=== PATIENT | male | born 1950 | race Caucasian/White ===

== ENCOUNTER → 2017-01-19 19:19 | Outpatient (CLI) | payer MEDICARE, OTHER ==
[2016-05-04 03:01] VITALS: BMI 26.8
[~2017-01-19 19:19] MED LIST: BAYER CHEWABLE81 MG PO; BETAPACE 80 MG80 MG PO; CELEBREX200 MG PO; CYCLOBENZAPRINE10 MG PO; ELIQUIS5 MG PO; FISH OIL 1,0001 CA1 PO; FLOMAX0.4 MG PO; ISOSORBIDE MONO30 M1 PO; LEVAQUIN500 MG PO; PLAVIX75 MG PO; PREDNISONE10 MG; PREDNISONE20 MG; SEPTRA DS TABLE1 TAB; ULTRAM50 MG PO; VIBRAMYCIN 100100 MG PO; XARELTO20 MG PO
== END | disposition home or self-care (01) ==
LOC: D.SLEEP 19:19
DX: G47.33 Obstructive sleep apnea (adult) (pediatric) (principal)

== ENCOUNTER → 2017-01-27 19:11 | Outpatient (CLI) | payer MEDICARE, OTHER | END | disposition home or self-care (01) | LOC: D.SLEEP 19:11 | DX: G47.33 Obstructive sleep apnea (adult) (pediatric) (principal) ==

== ENCOUNTER 2017-01-28 22:19 | Emergency (ER) | payer MEDICARE, OTHER ==
[2016-05-04 03:01] VITALS: BMI 26.8
[2017-01-28 23:08] LABS: BASOPHILS 0.6 % (0.0-2.0); EOSINOPHILS 2.9 % (0-7); HEMATOCRIT 50.4 % (42.0-54.0); HEMOGLOBIN 17.4 g/dL (13.5-17.5); IMMATURE GRANULOCYTES 0.4 % (0-5); LYMPHOCYTES 24.9 % (15-50); MCH 30.7 pg (26.0-34.0); MCHC 34.5 g/dL (31.0-37.0); MCV 88.9 fL (80.0-100.0); MEAN PLATELET VOLUME 9.5 fL (7.4-10.4); NEUTROPHILS 62.2 % (40-80); RBC 5.67 10x6/uL (4.20-6.10); RDW 12.9 % (11.5-14.5); WBC 6.8 10x3/uL (4.8-10.8)
[2017-01-28 23:11] LABS: PLATELET COUNT 175 10x3/uL (130-400)
[2017-01-28 23:23] LABS: ALBUMIN 3.3 g/dL (3.4-5.0); ALKALINE PHOSPHATASE 100 U/L (46-116); ALT (SGPT) 24 U/L (10-68); CALC OSMOLALITY 273 mosm/kg (275-300); CARBON DIOXIDE 27.6 mmol/L (21.0-32.0); CHLORIDE - SERUM 100 mmol/L (98-107); CREATININE - SERUM 1.2 mg/dL (0.6-1.3); GLUCOSE 129 mg/dL (74-106); PROTEIN - SERUM 6.7 g/dL (6.4-8.2); SODIUM 135 mmol/L (136-145); UREA NITROGEN 18 mg/dL (7-18); eGFR NON AFRICAN AMERICAN 64 mL/min (90-120)
[2017-01-28 23:34] LABS: CKMB 0.8 U/L (0.0-3.6); CREATINE KINASE 70 UL (21-232); TROPONIN-I < 0.017 ng/mL (0.000-0.060)
== END 2017-01-29 01:01 | disposition home or self-care (01) ==
LOC: D.ER 22:19
PROVIDERS: Emergency Medicine
DX: I48.91 Unspecified atrial fibrillation (principal); N28.9 Disorder of kidney and ureter, unspecified; G45.9 Transient cerebral ischemic attack, unspecified

== ENCOUNTER 2017-02-04 07:19 | Outpatient (CLI) | payer MEDICARE, OTHER ==
[~2017-02-04] VITALS: Ht 180.3 cm; Wt 84.1 kg
--- NOTE | ~2017-02-04 | HEMODYNAMI ---
PATIENT:LUIGI BORJA MEDICAL RECORD: [id number] : 48 LOCATION:D.CAT ADMISSION DATE: 02/04/17 Generatedon:02/04/20179:16 Patient name: LUIGI BORJA Patient #: [id number] : 1950 Date of study: 02/04/2017 Page: Of Hemodynamic Procedure Report Patient Data Patient Demographics Procedure consent was obtained First Name: LUIGI Gender: Male Last Name: JONH : 1950 Middle Initial: M Age: 66 year(s) Patient #: [id number] Race: SSN: [id number] Additional ID: [id number] Contact details [address]: [address] [place] [address] State: [place] City: [place] Zip code: [address] Past Medical History Allergies Allergen Reaction Date Comments Reported Penicillins 02/17/2015 Other allergy 02/17/2015 Feldene Lipitor 02/17/2015 Other allergy 02/17/2015 Meropenem Other allergy 02/04/2017 PCN, Feldene, Statins,Meropenen Admission Admission Data Admission Date: 02/04/2017 Admission Time: 7:19 Arrival Date: 02/04/2017 Arrival Time: 9:30 Admit Source: Other Insurance Payor: Medicare Height (in.): 71 BSA: 2.04 (m2) Height (cm.): 180.34 BMI: 25.94 (kg/m2) Weight (lbs.): 186 Weight (kg.): 84.37 Lab Results Lab Result Date: 02/04/2017 Lab Result Time: 0:00 Biochemistry Name Units Result Min Max BUN mg/dl 15 --(--*-)-- 7 18 Creatinine mg/dl 1.2 --(---*)-- 0.6 1.3 CBC Name Units Result Min Max Hemoglobin g/dl 18 --(----)*- 13.5 17.5 Procedure Procedure Types Cath Procedure Diagnostic Procedure LHC LHC w/Coronaries w/Grafts PCI Procedure Coronary Stent Initial Miscellaneous Procedures Procedure Description Procedure Date Procedure Date: 02/04/2017 Procedure Start Time: 8:42 Procedure End Time: 9:09 Procedure Staff Name Function Javier Law MD Performing Physician Renita Springer RT Scrub Dave Munoz RN Nurse Karine Simons RT Monitor Indication Angina Procedure Data Cath Procedure Fluoroscopy Diagnostic fluoroscopy Total fluoroscopy Time: time: 11.8 min 11.8 min Diagnostic fluoroscopy Total fluoroscopy dose: dose: 1395 mGy 1395 mGy Contrast Material Contrast Material Type Amount (ml) Isovue 300 154 Entry Location Entry Primary Successful Side Size Upsize Upsize Entry Closure Succes sful Closure Location (Fr) 1 (Fr) 2 (Fr) Remarks Device Remarks Femoral Right 5 Fr 6 Fr 7 Fr Exoseal artery Short Short Estimated blood loss: 10 ml Diagnostic catheters Device Type Used For End Catheter Placement Cordis 5Fr Pigtail Ventriculography Catheter (MP) Cordis 5Fr JL 4.0 Procedure Catheter (MP) Cordis 5Fr 3DRC Catheter Procedure (MP) Diagnostic Infinity 5Fr Procedure AR 2 MOD catheter Procedure Complications No complications Procedure Medications Medication Administration Route Dosage Oxygen NC 2 l/min Heparin Flush Bag added to field 2 bags (1000units/500ml NS) Lidocaine 2% added to field 20 Plavix 75 mg 0.9% NaCl I.V. 100 ml/hr Versed I.V. 1 mg Fentanyl I.V. 50 mcg Heparin Bolus I.V. 4000 units Versed I.V. 1 mg Fentanyl I.V. 50 mcg Fentanyl I.V. 50 mcg Hemodynamics Rest BSA: 2.04 (m2) HGB: 18 (g/dl) O2 Consumption: Estimated: 229.88 (ml/min) O2 Cons umption indexed: Estimated:112.69 (ml/min/m) Heart Rate: 61 (bpm) Snapshots Pre Cath Intra NCS Post Cath Vital Signs Time Heart Resp SPO2 NIBP (mmHg) Rhythm Pain Sedation Rate (ipm) (%) Status Level (bpm) 8:24:27 68 17 98 171/102(149) NSR 0 (11) 10(A) , No pain 8:28:49 64 15 100 167/98(142) NSR 0 (11) 10(A) , No pain 8:33:09 63 16 100 155/97(144) NSR 0 (11) 10(A) , No pain 8:37:25 66 17 100 157/98(133) NSR 0 (11) 9(A) , No pain 8:42:55 64 16 100 163/87(121) NSR 0 (11) 9(A) , No pain 8:47:15 63 17 100 145/91(109) NSR 0 (11) 9(A) , No pain 8:51:27 70 16 100 143/94(110) NSR 0 (11) 9(A) , No pain 8:55:37 69 14 100 135/89(114) NSR 0 (11) 9(A) , No pain 8:59:45 75 15 100 152/91(111) NSR 0 (11) 9(A) , No pain 9:03:59 75 15 100 156/94(138) NSR 0 (11) 9(A) , No pain 9:08:15 79 16 100 151/97(137) NSR 0 (11) 10(A) , No pain Medications Time Medication Route Dose Verified Delivered Reason Notes Effectiveness by by 8:25:38 Oxygen NC 2 Javier Buffie Per physician l/min Thanh Munoz RN 8:25:45 Heparin Flush added 2 Javier Javier used for Bag to bags Thanh Law MD procedure (1000units/500ml field NS) 8:25:52 Lidocaine 2% added 20ml Javier Javier used for to vial Thanh Law MD procedure field 8:33:29 Plavix 75 mg Javier Buffie for Thanh Munoz RN antiplatelet therapy 8:37:54 0.9% NaCl I.V. 100 Javier Buffie Per physician ml/hr Thanh Munoz RN 8:38:39 Versed I.V. 1 mg Javier Buffie for sedation Thanh Munoz RN 8:38:46 Fentanyl I.V. 50 Javier Buffie for sedation mcg Thanh Munoz RN 8:51:08 Heparin Bolus I.V. 4000 Javier Buffie for verifie d units Thanh Munoz RN anticoagulation with dr law 8:54:18 Versed I.V. 1 mg Javier Buffie for sedation Thanh Munoz RN 8:54:22 Fentanyl I.V. 50 Javier Buffie for sedation mcg Tauth MD Munoz RN 9:02:47 Fentanyl I.V. 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 Start room use. 8:01:01 Arrival Date: 02/04/2017 9:30:00 AM 8:01:06 Admit Source: Other 8:01:08 Insurance Payor : Medicare 8:01:29 Patient Height : 180.34 cm 8:01:33 Patient Weight : 84.37 kg 8:04:30 Diagnostic Cath Status : Elective 8:04:52 Indication : Angina 8:17:36 Lab Result : BUN 15 mg/dl 8:17:36 Lab Result : Hemoglobin 18 g/dl 8:17:36 Lab Result : Creatinine 1.2 mg/dl 8:17:48 Time tracking: Regular hours 8:17:52 Plan of Care:Hemodynamics will remain stable., Cardiac rhythm will remain stable., Comfort level will be maintained., Respiratory function will remain adequate., Patient/ family verbilizes understanding of procedure., Procedure tolerated without complication., Recovers from procedure without complications.. 8:18:21 Patient received from Pre/Post Procedure Room to CCL 2 Alert and oriented. Tansferred to table in Supine position. 8:18:23 Warm blankets applied, and kailee hugger turned on for patient comfort. 8:18:23 Correct patient and procedure confirmed by team. 8:18:24 ECG and BP/O2 sat monitors applied to patient. 8:21:01 H&P Date Dictated: 02/01/2017 Within 30 days and on chart., H&P Addendum completed by physician on day of procedure. (MUST COMPLETE FOR ALL OUTPATIENTS). 8:21:02 Pre-procedure instructions explained to patient. 8:21:02 Pre-op teaching completed and patient verbalized understanding. 8:21:04 Family in patients room. 8:21:06 Patient NPO since Midnight. 8:21:28 Patient allergic to Other allergyPCN, Feldene, Statins,Meropenen 8:21:30 Is the patient allergic to Iodine/contrast media? No. 8:21:32 Is patient on blood thinner?Yes 8:21:34 ACC The patient was administered the following blood thiners within the last 24 hours: ACCPlavix 8:21:36 Patient diabetic? No. 8:21:38 Previous problem with sedation/anesthesia? No ? 8:21:41 Snore? Yes 8:21:42 Sleep apnea? Yes 8:21:43 Deviated septum? No 8:21:44 Opens mouth fully? Yes 8:21:45 Sticks out tongue? Yes 8:21:47 Airway obstruction? No ? 8:21:48 Dentures? No ? 8:21:51 Patient pain scale 0/10 ?. 8:22:08 IV patent on arrival in left hand with 0.9% NaCl at [facility]. 8:22:11 Lab results completed and on chart. 8:22:14 Right groin area was prepped with chlora-prep and draped in sterile fashion 8:22:19 Alarms reviewed by R. N. 8:22:19 Sharps counted by scrub and verified by R.N. 8:22:22 Use device set Femoral Dx 8:22:23 Tegaderm 4 x 4 opened to sterile field. 8:22:28 Acist Manifold opened to sterile field. 8:22:28 Acist Hand Control opened to sterile field. 8:22:29 Acist Syringe opened to sterile field. 8:22:30 Bag Decanter opened to sterile field. 8:22:30 Medline Cath Pack opened to sterile field. 8:22:31 Terumo 5Fr [place] Sheath opened to sterile field. 8:22:31 St Thierry 260cm J .035 wire opened to sterile field. 8:22:33 Diagnostic Infinity 5Fr Multipack catheter opened to sterile field. 8:23:14 Vital chart was started 8:23:31 Baseline sample Acquired. 8:23:35 Rhythm: sinus rhythm 8:23:37 Full Disclosure recording started 8:23:47 Baseline sample Acquired. 8:25:38 Oxygen 2 l/min NC was administered by Dave Munoz RN; Per physician; 8:25:45 Heparin Flush Bag (1000units/500ml NS) 2 bags added to field was administered by Javier Law MD; used for procedure; 8:25:52 Lidocaine 2% 20ml vial added to field was administered by Javier Law MD; used for procedure; 8:26:46 Baseline sample Acquired. 8::52 Baseline sample Acquired. 8:33:29 Plavix 75 mg was administered by Dave Munoz RN; for antiplatelet therapy; 8:36:34 Physician arrived 8:37:42 --------ALL STOP TIME OUT------ 8:37:43 Final Timeout: patient, procedure, and site verified with staff and physician. All members of the team are in agreement. 8:37:49 Right groin site verified by team. 8:37:54 0.9% NaCl 100 ml/hr I.V. was administered by Dave Munoz RN; Per physician; 8:37:54 Physical assessment completed. ASA score P 2 - A patient with mild systemic disease as per Javier Law MD. 8:37:58 Sedation plan: IV Moderate Sedation Versed, Fentanyl 8:38:39 Versed 1 mg I.V. was administered by Dave Munoz RN; for sedation; 8::46 Fentanyl 50 mcg I.V. was administered by Dave Munoz RN; for sedation; 8:39:56 Zero performed for pressure channel P1 8:42:32 Local anesthetic to right femoral artery with Lidocaine 2% by Javier Law MD.INITIAL ACCESS ONLY 8:42:40 A 5 Fr sheath was inserted into the Right Femoral artery 8:46:14 A Cordis 5Fr Pigtail Catheter (MP) was advanced over the wire and used for Ventriculography. 8:46:23 EF : 50 % 8:46:26 Catheter removed. 8:46:34 A Cordis 5Fr JL 4.0 Catheter (MP) was advanced over the wire and used for Procedure. 8:46:38 LCA angiography performed. 8:47:23 Catheter removed. 8:48:03 A Cordis 5Fr 3DRC Catheter (MP) was advanced over the wire and used for Procedure. 8:48:26 EDWARDS to LAD angiography performed. 8:48:48 RCA angiography performed. 8:49:06 Catheter removed. 8:49:25 A Diagnostic Infinity 5Fr AR 2 MOD catheter was advanced over the wire and used for Procedure. 8:50:33 SVG to Ramus angiography performed. 8:51:08 Heparin Bolus 4000 units I.V. was administered by Dave Munoz RN; for anticoagulation; verified with dr law 8:51:18 SVG to RCA occluded. 8:51:42 SVG to Circ angiography performed. 8:52:11 Catheter removed. 8:52:24 PCI Cath status Elective 8:52:35 Sheath upsized to a 6 Fr Short. 8:53:45 Merit BasixCompak Inflation Kit opened to sterile field. 8:53:45 Terumo 6Fr [place] Sheath opened to sterile field. 8:53:46 Matias Whisper J 300cm 0.014 guide wire opened to sterile field. 8:54:18 Versed 1 mg I.V. was administered by Dave Munoz RN; for sedation; 8:54:22 Fentanyl 50 mcg I.V. was administered by Dave Munoz RN; for sedation; 8:54:32 Medtronic Launcher 6Fr AR 2.0 guide catheter opened to sterile field. 8:54:42 ACC PCI Site: Ramus has 90% stenosis. 8:54:50 6 Fr AR 2 guide catheter was inserted over the wire 8:54:57 Whisper wire advanced. 8:57:15 [place] Sci Choice PT Extra Support J 300cm .014 gu opened to sterile field. 8:58:05 Wire advanced across lesion. 9:01:29 Wire removed. unable to cross lesion. 9:01:34 Guide Catheter removed. unable to get back-up support 9:01:49 Terumo 7Fr [place] Sheath opened to sterile field. 9:02:02 Sheath upsized to a 7 Fr Short. 9:02:22 [place] Sci 7FR Runway ART 4.0 guide catheter opened to sterile field. 9:02:37 7 Fr ART 4 guide catheter was inserted over the wire 9:02:47 Fentanyl 50 mcg I.V. was administered by Dave Munoz RN; for sedation; 9:02:59 PT graphics ex wire advanced. 9:05:33 Inflation number: 1 A Euphora 1.5 x 20 Balloon was prepped and advanced across the Ramus, then inflated to 21 ALLYSON for 0:10 (min:sec). 9:05:49 Balloon removed over the wire. 9:07:11 Inflation Number: 2 A Medtronic Resolute 2.25 X 12 stent was prepped and advanced across the Ramus. The stent was deployed at 17 ALLYSON for 0:12 (min:sec). 9:07:37 Cordis 7Fr Exoseal opened to sterile field. 9:07:45 Wire removed. 9:07:46 Guide catheter removed. 9:07:59 Sheath removed intact; hemostasis achieved with Exoseal to the Right Femoral artery. 9:08:02 Procedure ended.(Physican Out) 9:08:30 Fluoroscopy time 11.80 minutes. 9:08:34 Flurop Dose total: 1395 9:08:34 Fluoroscopy dose: 1395 mGy 9:08:39 Contrast amount:Isovue 300 154ml. 9:08:40 Sharps counted by scrub and verified by R.N. 9:08:43 Insertion/operative site no bleeding no hematoma. 9:08:47 Post-op/insertion site Right Femoral artery dressed using a 4 x 4 and Tegaderm. 9:08:53 Post Procedure Pulses reassessed and unchanged 9:08:57 Post-procedure physical assessment completed. ASA score P 2 - A patient with mild systemic disease as per Javier Law MD. 9:09:04 Post procedure rhythm: unchanged. 9:09:07 Estimated blood loss: 10 ml 9:09:09 Post procedure instruction explained to patient.Patient verbalizes understanding. 9:09:36 Procedure and supply charges have been captured, reviewed, submitted and are correct. 9:09:41 Procedure Complication : No complications 9:09:44 Vital chart was stopped 9:09:46 See physician's report for complete and final results. 9:09:53 Report given to Pre/Post Procedure Room. 9:09:56 Patient transfered to Pre/Post Procedure Room with Stretcher. 9:09:58 Procedure ended. 9:09:58 Full Disclosure recording stopped 9:10:04 End room use (Document Last) Intervention Summary Intervention Notes Time ActionType Lesion and Equipment Action# Pressure Duration Attributes Used 9:05:33 Inflate Ramus Euphora 1 21 00:10 balloon 1.5 x 20 Balloon 9:07:11 Place stent Ramus Medtronic 2 17 00:12 Resolute 2.25 X 12 stent Device Usage Item Name Manufacture Quantity Catalog Number Hospital Part Current Minim al Lot# / Charge Number Stock Stock Serial# Code Tegaderm 4 3M 1 [id number] [id number] [id number] [id number] 5 x 4 Acist Acist 1 [id number] [id number] [id number] 364163 5 [employer] Acist Hand Acist 1 04389 400675 057726 963367 5 ContractRoom [employer] Inc Acist Acist 1 22360 944950 984099 011147 20 Syringe Medical Systems Inc Bag Microtek 1 2002S 452055 48426 846933 5 Hexadite Inc. Medline Cardinal 1 [id number] 727037 20485 858917 5 Cath Pack Health Terumo 5Fr Terumo 1 [id number] 205701 920156 784844 [address] St Thierry 1 395047 871273 290978 288099 30 260cm J .035 wire Diagnostic Cardinal 1 [id number] 208464 85045 310313 30 Infinity Health 5Fr Multipack catheter Cordis 5Fr Cardinal 1 [id number] 5 Pigtail Health Catheter (MP) Cordis 5Fr Cardinal 1 888326 5 JL 4.0 Health Catheter (MP) Cordis 5Fr Cardinal 1 128785 5 3DRC Health Catheter (MP) Diagnostic Cardinal 1 [id number] 133824 804392 221907 20 Infinity Health 5Fr AR 2 MOD catheter Merit Merit 1 [id number] 026584 555453 967773 15 Fortumo Medical Inflation Kit Terumo 6Fr Terumo 1 SVC529 230683 957070 778003 40 [place]us Sheath Matias Matias 1 [id number] 973213 524074 522986 5 Whisper J Vascular 300cm 0.014 guide wire Medtronic Medtronic 1 [id number] 571954 56783 637882 1 Launcher 6Fr AR 2.0 guide catheter [place] Sci [place] 1 [id number] 717720 857077 230524 5 Choice PT Scientific Extra Support J 300cm .014 gu Terumo 7Fr Terumo 1 [id number] 902809 834774 081118 5 [place]us Sheath [place] Sci [place] 1 [id number] 147384 14107 570300 0 7FR Runway Scientific ART 4.0 guide catheter Euphora 1.5 Medtronic 1 [id number] 596595 519236 976769 5 [id number] x 20 Balloon Medtronic Medtronic 1 [id number] 464977 405383 8 [id number] Resolute 2.25 X 12 stent Cordis 7Fr Cardinal 1 [id number] 403208 665770 606296 5 Exoseal Health Signature Audit [place] Stage Time Signature Unsigned Intra-Procedure 02/04/2017 Karine Simons 9:16:01 AM RT(R) Signatures Monitor : Karine Simons Signature : RT Date : Time : [place] [id number] [place] [address]
--- NOTE | ~2017-02-04 | OP ---
PATIENT NAME: LUIGI BORJA MEDICAL RECORD: [id number] :48 LOCATION:D.CAT ADMISSION DATE: SURGEON: LEIGHTON WILLIS MD DATE OF OPERATION: 02/04/2017 PROCEDURES: 1. PTCA stent of the left circumflex, ramus intermedius through the patent vein graft. 2. Left heart catheterization. 3. Selective coronary angiography. 4. Left ventriculogram. 5. Vein graft angiography. 6. EDWARDS angiography. INDICATION: Angina and coronary artery disease. DESCRIPTION OF THE PROCEDURE: After informed consent was obtained and after detailed explanation of risks, benefits as well as alternative therapies, the patient elected to proceed with angiogram and angioplasty. The right femoral area was prepped and draped in normal sterile fashion. Right femoral artery was cannulated via modified Seldinger technique with placement of 6-Salvadorean sheath. All catheters exchanged through this sheath. FINDINGS: Left ventriculogram was performed in the standard 30-degree ZIMMERMAN view reveals good cardiac wall motion throughout all segments. Overall ejection fraction is 60%. SELECTIVE CORONARY ANGIOGRAPHY: 1. Left main is with no significant angiographic disease. 2. Left anterior descending is totally occluded. 3. Left circumflex is totally occluded. 4. The right coronary artery is totally occluded. 5. EDWARDS to the LAD is widely patent. 6. Vein graft to the left circumflex is widely patent. 8. Vein graft to the circumflex ramus intermedius is patent; however, the ramus intermedius has 90% stenosis after the vein graft. 9. Vein graft to the right coronary artery is closed throughout. PERCUTANEOUS TRANSLUMINAL CORONARY ANGIOPLASTY STENT OF THE RAMUS INTERMEDIUS THROUGH THE PATENT VEIN GRAFT: The stent used was a 2.25 x 12 mm Resolute. Result was 0% residual stenosis. OVERALL IMPRESSION: Successful percutaneous transluminal coronary angioplasty stent of the ramus intermedius through the patent vein graft going from 90% initial stenosis to 0% residual. TRANSINT:[id number] Voice Confirmation ID: [id number] DOCUMENT ID: [id number] OPERATIVE REPORT [id number] LUIGI BORJA LEIGHTON WILLIS MD CC: [id number] DICTATION DATE: 02/04/17911 HOSPITAL DIRECTOR: 02/04/17 1259 [facility] [address] [place] [address]
[2017-02-04 07:31] VITALS: BP 166/87; Ht 180.3 cm; Wt 84.1 kg
[2017-02-04 07:40] LABS: BASOPHILS 0.5 % (0.0-2.0); EOSINOPHILS 3.2 % (0-7); HEMATOCRIT 51.2 % (42.0-54.0); IMMATURE GRANULOCYTES 0.6 % (0-5); LYMPHOCYTES 26.8 % (15-50); MCH 31.3 pg (26.0-34.0); MCHC 35.2 g/dL (31.0-37.0); MEAN PLATELET VOLUME 9.5 fL (7.4-10.4); MONOCYTES 8.1 % (2-11); NEUTROPHILS 60.8 % (40-80); PLATELET COUNT 179 10x3/uL (130-400); RBC 5.75 10x6/uL (4.20-6.10); RDW 12.9 % (11.5-14.5); WBC 6.3 10x3/uL (4.8-10.8)
[2017-02-04 07:53] LABS: ANION GAP 11.5 mmol/L (8-16); CALCIUM 9.2 mg/dL (8.5-10.1); CARBON DIOXIDE 28.3 mmol/L (21.0-32.0); CREATININE - SERUM 1.2 mg/dL (0.6-1.3); POTASSIUM - SERUM 3.8 mmol/L (3.5-5.1)
--- NOTE | 2017-02-04 09:33 | NUR ---
0925 RECEIVED PT FROM MANAGER SUBWAY, PT IS DROWSY, AWAKENS EASILY. RR EVEN AND UNLABORED, ON O2 AT 2 LPM VIA NC. SAT IS 97%. 7 FR EXOSEAL IS CDI TO RIGHT GROIN, AREA IS SOFT WITH NO HEMATOMA OR BLEEDING NOTED. PEDAL PULSES PALPABLE. SINUS RHYTHM WITH RATE 62 AT BEDSIDE. CALL LIGHT IN REACH.
--- NOTE | 2017-02-04 09:51 | NUR ---
0940 PT DENIES ANY C/O RIGHT GROIN DRESSING IS CDI, NO BLEEDING OR HEMATOMA NOTED. PEDAL PULSES PALPABLE. AT BEDSIDE. RR EVEN AND UNLABORED. VSS.
[2017-02-04] MEDS ORDERED: BAYER CHEWABLE81 MG PO (10:08)
--- NOTE | 2017-02-04 13:04 | NUR ---
ELEVATED HOB TO 30DEGREES, ALL VITALS WNL. FAMILY AT BEDSIDE. EATING TURKEY SANDIWCH. R GROIN REMAINS C/D/I WITH NOHEMATOMA OR BLEEDING.
--- NOTE | 2017-02-04 13:36 | NUR ---
PIV REMOVED FROM LEFT WRIST WITH BANDAID APPLIED. UP TO BEDSIDE TO DRESS. AMBULATED TO BATHROOM. R GROIN REMAINS C/D/I WITH NO HEMATOMA OR BLEEDING.
--- NOTE | 2017-02-04 13:37 | NUR ---
D/C ISNTRUCTIONS DISCUSSED WITH PATIENT AND AT BEDSIDE. WHEELED OUT VIA WHEELCHAIR.
== END 2017-02-04 13:48 | disposition home or self-care (01) ==
LOC: D.CATH 07:19
PROVIDERS: Internal Medicine Interventional Cardiology
DX: I25.119 Atherosclerotic heart disease of native coronary artery with unspecified angina pectoris (principal); I25.719 Atherosclerosis of autologous vein coronary artery bypass graft(s) with unspecified angina pectoris
CPT/HCPCS: 93459; C9604

== ENCOUNTER → 2017-09-08 16:01 | Outpatient (CLI) | payer MEDICARE, OTHER ==
[2017-02-04 07:31] VITALS: BMI 25.8
== END | disposition home or self-care (01) ==
LOC: D.MAMMO 08:30
DX: N60.02 Solitary cyst of left breast (principal)

== ENCOUNTER 2018-01-30 14:18 | Outpatient (CLI) | payer MEDICARE, OTHER ==
[~2018-01-30] VITALS: Ht 180.3 cm; Wt 78.4 kg
--- NOTE | ~2018-01-30 | HEMODYNAMI ---
PATIENT:LUIGI BORJA MEDICAL RECORD: [id number] : 48 LOCATION:[facility] D.2116 ADMISSION DATE: 01/30/18 Generatedon:02/01/20189:35 Patient name: LUIGI BORJA Patient #: [id number] : 1950 Date of study: 02/01/2018 Page: Of Hemodynamic Procedure Report Patient Data Patient Demographics Procedure consent was obtained First Name: LUIGI Gender: Male Last Name: JONH : 1950 Middle Initial: M Age: 67 year(s) Patient #: [id number] Race: SSN: [id number] Additional ID: [id number] Contact details [address]: [address] [place] [address] State: [place] City: [place] Zip code: [address] Past Medical History Allergies Allergen Reaction Date Comments Reported Penicillins 02/17/2015 Other allergy 02/17/2015 Feldene Lipitor 02/17/2015 Other allergy 02/17/2015 Meropenem Other allergy 02/04/2017 PCN, Feldene, Statins,Meropenen Other allergy 01/31/2018 Feldene, PCN, Lipitor, Hydrocodone, Vicodin, Meropenen, Effient, Crestor. Admission Admission Data Admission Date: 01/30/2018 Admission Time: 14:18 Room #: D.2116 Lab Results Lab Result Date: 01/31/2018 Lab Result Time: 0:00 Biochemistry Name Units Result Min Max BUN mg/dl 18 --(---*)-- 7 18 Creatinine mg/dl 1.4 --(----)*- 0.6 1.3 CBC Name Units Result Min Max Hematocrit % 52.6 --(---*)-- 42 54 Hemoglobin g/dl 18.2 --(----)*- 13.5 17.5 Procedure Procedure Types Cath Procedure PCI Procedure Coronary Stent Coronary Stent Initial Procedure Description Procedure Date Procedure Date: 02/01/2018 Procedure Start Time: 9:26 Procedure End Time: 9:35 Procedure Staff Name Function Javier Law MD Performing Physician Blaise Soria RN Nurse Reta Avendano RT Scrub Riyahuber Merchant RT Monitor Procedure Data Cath Procedure Fluoroscopy Diagnostic fluoroscopy Total fluoroscopy Time: 1.1 time: 1.1 min min Diagnostic fluoroscopy Total fluoroscopy dose: 138 dose: 138 mGy mGy Contrast Material Contrast Material Type Amount (ml) Isovue 300 23 Entry Location Entry Primary Successful Side Size Upsize Upsize Entry Closure Succes sful Closure Location (Fr) 1 (Fr) 2 (Fr) Remarks Device Remarks Femoral Left 6 Fr Exoseal artery Short Estimated blood loss: 5 ml Procedure Complications No complications Procedure Medications Medication Administration Route Dosage Oxygen etCO2 Nasal cannula 2 l/min Heparin Flush Bag added to field 2 bags (1000units/500ml NS) 0.9% NaCl I.V. 100 ml/hr Fentanyl I.V. 50 mcg Versed I.V. 1 mg Fentanyl I.V. 50 mcg Versed I.V. 1 mg Heparin Bolus I.V. 4000 units Hemodynamics Rest HGB: 18.2 (g/dl) Heart Rate: 62 (bpm) Snapshots Pre Cath Intra NCS Post Cath Vital Signs Time Heart Resp SPO2 etCO2 NIBP (mmHg) Rhythm Pain Sedation Rate (ipm) (%) (mmHg) Status Level (bpm) 9:12:18 57 17 98 0 154/88(133) NSR 0 (11) 10(A) , No pain 9:17:02 60 17 99 0 158/89(138) NSR 0 (11) 10(A) , No pain 9:21:47 56 17 96 36.9 158/83(130) NSR 0 (11) 9(A) , No pain 9:26:32 57 17 84 13.5 133/92(108) NSR 0 (11) 9(A) , No pain 9:31:13 60 16 97 0 141/77(123) NSR 0 (11) 9(A) , No pain Medications Time Medication Route Dose Verified Delivered Reason Notes Effectiveness by by 9:12:55 Oxygen etCO2 2 Javier Welsh Per physician Nasal l/min Thahn Soria RN cannula 9:13:07 Heparin Flush added 2 Javier Welsh used for Bag to bags Tauth MD Soria air quality manager (1000units/500ml field NS) 9:13:26 0.9% NaCl I.V. 100 Javier Welsh Per physician ml/hr Thanh Soria RN 9:20:30 Fentanyl I.V. 50 Javier Welsh for sedation mcg Thanh Soria RN 9:20:36 Versed I.V. 1 mg Javier Welsh for sedation Thanh Soria RN 9:28:01 Fentanyl I.V. 50 Javier Welsh for sedation mcg Thanh Soria RN 9:28:05 Versed I.V. 1 mg Javier Welsh for sedation Thanh Soria RN 9:28:13 Heparin Bolus I.V. 4000 Javier Welsh for units Thanh Soria RN anticoagulation Procedure Log Time Note 8:50:33 Reta Counts RT(R) sent for patient. Start room use. 8:53:35 Time tracking: Regular hours 8:53:40 Plan of Care:Hemodynamics will remain stable., Cardiac rhythm will remain stable., Comfort level will be maintained., Respiratory function will remain adequate., Patient/ family verbilizes understanding of procedure., Procedure tolerated without complication., Recovers from procedure without complications.. 9:06:52 Patient received from PCU to CCL 1 Alert and oriented. Tansferred to table in Supine position. 9:06:54 Warm blankets applied, and kailee hugger turned on for patient comfort. 9:06:54 Correct patient and procedure confirmed by team. 9:06:55 Signed procedure consent form obtained from patient. 9:06:56 ECG and BP/O2 sat monitors applied to patient. 9:06:57 Full Disclosure recording started 9:11:21 Vital chart was started 9:12:55 Oxygen 2 l/min etCO2 Nasal cannula was administered by Blaise Soria RN; Per physician; 9:13:07 Heparin Flush Bag (1000units/500ml NS) 2 bags added to field was administered by Blaise Soria RN; used for procedure; 9:13:11 Rhythm: sinus rhythm 9:13:14 Baseline sample Acquired. 9:13:21 H&P Date Dictated: 01/30/2018 Within 30 days and on chart., H&P Addendum completed by physician on day of procedure. (MUST COMPLETE FOR ALL OUTPATIENTS). 9:13:22 Pre-procedure instructions explained to patient. 9:13:22 Pre-op teaching completed and patient verbalized understanding. 9:13:25 Family in patients room. 9:13:26 0.9% NaCl 100 ml/hr I.V. was administered by Blaise Soria RN; Per physician; 9:13:26 Patient NPO since Midnight. 9:13:28 Is the patient allergic to Iodine/contrast media? No. 9:13:30 Is patient on blood thinner?Yes 9:13:32 ACC The patient was administered the following blood thiners within the last 24 hours: ACCPlavix 9:14:15 Patient diabetic? No. 9:14:17 Previous problem with sedation/anesthesia? No ? 9:14:19 Snore? Yes 9:14:20 Sleep apnea? No 9:14:21 Deviated septum? No 9:14:21 Opens mouth fully? Yes 9:14:22 Sticks out tongue? Yes 9:14:23 Airway obstruction? No ? 9:14:25 Dentures? No ? 9:16:03 Pre procedure: left dorsailis pedis pulse 2+ Normal; easily identifiable; not easily obliterated 9:16:06 Patient pain scale 0/10 ?. 9:16:11 IV patent on arrival in left hand with 0.9% NaCl at [facility]. 9:16:13 Lab results completed and on chart. 9:16:17 Left groin area was prepped with chlora-prep and draped in sterile fashion 9:16:18 Alarms reviewed by R. N. 9:16:18 Sharps counted by scrub and verified by R.N. 9:16:25 Use device set CATH PACK 9:16:29 Use device set TAUTH PCI 9:16:41 PERCUTANEOUS ENTRY 19GA needle opened to sterile field. 9:16:43 ACIST Syringe (13418) opened to sterile field. 9:16:44 ACIST Hand Control (54903) opened to sterile field. 9:16:44 ACIST Manifold (01386) opened to sterile field. 9:16:45 Medline Cath Pack ([id number]) opened to sterile field. 9:16:45 Bag Decanter () opened to sterile field. 9:16:46 DIAGNOSTIC WIRE .035 260cm J wire (209603) opened to sterile field. 9:16:46 INFLATOR Merit Yasminek (TR9526) opened to sterile field. 9:16:51 CHOICE PT Extra Support 182cm wire ([id number]) opened to sterile field. 9:20:11 Final Timeout: patient, procedure, and site verified with staff and physician. All members of the team are in agreement. 9:20:13 Left groin site verified by team. 9:20:16 Physical assessment completed. ASA score P 2 - A patient with mild systemic disease as per Javier Law MD. 9:20:19 Sedation plan: IV Moderate Sedation Medication:Versed, Fentanyl 9:20:23 Zero performed for pressure channel P1 9:20:30 Fentanyl 50 mcg I.V. was administered by Blaise Soria RN; for sedation; 9::33 Zero performed for pressure channel P1 9:20:36 Versed 1 mg I.V. was administered by Blaise Soria RN; for sedation; 9:20:38 Zero performed for pressure channel P1 9:26:35 Procedure started. 9:26:46 Local anesthetic to left femerol artery with Lidocaine 2% by Javier Law MD.INITIAL ACCESS ONLY 9:27:24 A 6 Fr Short sheath was inserted into the Left Femoral artery 9:27:43 6 Fr XBLAD 3.5 guide catheter was inserted over the wire 9:28:01 Fentanyl 50 mcg I.V. was administered by Blaise Soria RN; for sedation; 9:28:05 Versed 1 mg I.V. was administered by Blaise Soria RN; for sedation; 9:28:13 Heparin Bolus 4000 units I.V. was administered by Blaise Soria RN; for anticoagulation; 9:28:19 CHOICE PT ES wire advanced. 9:29:52 Place stent Inflation Number: 1 A JORI RX 2.5 x 34 stent ([id number]) was prepped and advanced across the 1st Diag. The stent was deployed at 21 [address] for 0:11 (min:sec). 9:30:08 Stent catheter was removed intact over wire. 9:30:08 Wire removed. 9:30:09 Guide catheter removed. 9:30:15 Sheath removed intact; hemostasis achieved with Exoseal to the Left Femoral artery. 9:30:17 Procedure ended.(Physican Out) 9:32:45 Fluoroscopy time 01.10 minutes. 9:32:48 Flurop Dose total: 138 9:32:48 Fluoroscopy dose: 138 mGy 9:32:55 Contrast amount:Isovue 300 23ml. 9:32:56 Sharps counted by scrub and verified by R.N. 9:32:57 Insertion/operative site no bleeding no hematoma. 9:33:01 Post-op/insertion site Left Femoral artery dressed using a 4 x 4 and Tegaderm. 9:33:05 Post left femerol artery:stable, clean and dry 9:33:08 Post Procedure Pulses reassessed and unchanged 9:33:15 Post-procedure physical assessment completed. ASA score P 2 - A patient with mild systemic disease as per Javier Law MD. 9:33:16 Post procedure rhythm: unchanged. 9:33:18 Estimated blood loss: 5 ml 9:33:19 Post procedure instruction explained to patient.Patient verbalizes understanding. 9:33:22 Patient needs reinforcement of post procedure teaching. 9:33:42 Procedure Complication : No complications 9:33:46 See physician's report for complete and final results. 9:33:58 EXOSEAL 6Fr (EX600) opened to sterile field. 9:34:05 Tegaderm 4 x 4 (1626W) opened to sterile field. 9:34:21 GUIDE 6FR XBLAD 3.5 catheter ([id number]) opened to sterile field. 9:34:38 Procedure and supply charges have been captured, reviewed, submitted and are correct. 9:34:39 Vital chart was stopped 9:34:41 Report given to Pre/Post Procedure Room. 9:35:19 Patient transfered to Pre/Post Procedure Room with Stretcher. 9:35:24 Procedure ended. 9:35:24 Full Disclosure recording stopped 9:35:27 End room use (Document Last) Intervention Summary Intervention Notes Time ActionType Lesion and Equipment Used Action# Pressure Duration Attributes 9:29:52 Place stent 1st Diag JORI RX 2.5 x 1 21 00:11 34 stent ([id number]) Device Usage Item Name Manufacture Quantity Catalog Number Hospital Part Current M inimal Lot# / Charge Number Stock Stock Serial# Code [facility] 1 [id number] [id number] 5 ENTRY 19GA needle ACIST Syringe Acist 1 86846 107658 357059 501845 2 0 (82606) [employer] ACIST Hand Acist 1 12908 545176 496915 907991 5 Control Medical (19076) Systems Inc ACIST Manifold Acist 1 10932 285918 645417 268922 5 (89586) [employer] Medline Cath Cardinal 1 [id number] 827940 79311 265684 5 Pack Health ([id number]) Bag Decanter Microtek 1 2002S 130594 47569 854901 5 (2001S) Medical Inc. DIAGNOSTIC [facility] 1 807841 854733 153037 172776 3 0 WIRE .035 260cm J wire (647844) INFLATOR Merit Merit 1 RV8675 344378 421192 019562 1 5 Compiere (MS6323) CHOICE PT [place] 1 [id number] 266260 037045 694750 5 Extra Support Scientific 182cm wire ([id number]) JORI RX 2.5 x Medtronic 1 [id number] 356074 1310076 632274 5 [id number] 34 stent ([id number]) EXOSEAL 6Fr Cardinal 1 EX600 790948 449200 603150 1 0 (EX600) Health Tegaderm 4 x 4 3M 1 1626W 541709 068745 576309 5 (1626W) GUIDE 6FR Cardinal 1 [id number] 706961 216572 967040 1 0 XBLAD 3.5 Health catheter ([id number]) Signature Audit [place] Stage Time Signature Unsigned Intra-Procedure 02/01/2018 Reta 9:35:41 AM Counts RT(R) Signatures Monitor : Riya Merchant Signature : RT Date : Time : [facility] [address] [place] [address]
--- NOTE | ~2018-01-30 | HEMODYNAMI ---
PATIENT:LUIGI BORJA MEDICAL RECORD: [id number] : 48 LOCATION:[facility] D.2116 ADMISSION DATE: 01/30/18 Generatedon:01/31/201810:14 Patient name: LUIGI BORJA Patient #: [id number] : 1950 Date of study: 01/31/2018 Page: Of Hemodynamic Procedure Report Patient Data Patient Demographics Procedure consent was obtained First Name: LUIGI Gender: Male Last Name: JONH : 1950 Middle Initial: M Age: 67 year(s) Patient #: [id number] Race: SSN: [id number] Additional ID: [id number] Contact details [address]: [address] [place] [address] State: [place] City: [place] Zip code: [address] Past Medical History Allergies Allergen Reaction Date Comments Reported Penicillins 02/17/2015 Other allergy 02/17/2015 Feldene Lipitor 02/17/2015 Other allergy 02/17/2015 Meropenem Other allergy 02/04/2017 PCN, Feldene, Statins,Meropenen Other allergy 01/31/2018 Feldene, PCN, Lipitor, Hydrocodone, Vicodin, Meropenen, Effient, Crestor. Admission Admission Data Admission Date: 01/30/2018 Admission Time: 14:18 Room #: D.2116 Lab Results Lab Result Date: 01/31/2018 Lab Result Time: 0:00 Biochemistry Name Units Result Min Max BUN mg/dl 18 --(---*)-- 7 18 Creatinine mg/dl 1.4 --(----)*- 0.6 1.3 CBC Name Units Result Min Max Hematocrit % 52.6 --(---*)-- 42 54 Hemoglobin g/dl 18.2 --(----)*- 13.5 17.5 Procedure Procedure Types Cath Procedure Diagnostic Procedure LHC LHC w/Coronaries w/Grafts Sedation Charges Moderate Sedation up to 15 minutes PCI Procedure AMI/SVG/FUNERAL ATTENDANT PTCA or Stent SVG-BMS/VANDANA Initial Procedure Description Procedure Date Procedure Date: 01/31/2018 Procedure Start Time: 9:53 Procedure End Time: 10:12 Procedure Staff Name Function Javier Law MD Performing Physician Renita Springer RT Monitor Blaise Soria RN Nurse Ezequiel Heredia RT Scrub Procedure Data Cath Procedure Fluoroscopy Diagnostic fluoroscopy Total fluoroscopy Time: 3.9 time: 3.9 min min Diagnostic fluoroscopy Total fluoroscopy dose: 201 dose: 201 mGy mGy Contrast Material Contrast Material Type Amount (ml) Isovue 300 104 Entry Location Entry Primary Successful Side Size Upsize Upsize Entry Closure Succes sful Closure Location (Fr) 1 (Fr) 2 (Fr) Remarks Device Remarks Femoral Right 5 Fr 6 Fr Exoseal artery Short Estimated blood loss: 5 ml Diagnostic catheters Device Type Used For End Catheter Placement MULTIPACK Pigtail 5 Fr LV Angiography catheter MULTIPACK JL 4.0 5Fr Left Coronary catheter Angiography MULTIPACK 3DRC 5Fr Multi-vessel catheter Angiography DIAGNOSTIC AR 1 MOD 5Fr Multi-vessel catheter ([id number]) Angiography Procedure Complications No complications Procedure Medications Medication Administration Route Dosage Oxygen etCO2 Nasal cannula 2 l/min Heparin Flush Bag added to field 2 bags (1000units/500ml NS) 0.9% NaCl I.V. 100 ml/hr Fentanyl I.V. 50 mcg Versed I.V. 1 mg Fentanyl I.V. 50 mcg Versed I.V. 1 mg Heparin Bolus I.V. 4000 units Hemodynamics Rest HGB: 18.2 (g/dl) Heart Rate: 63 (bpm) Pressure Samples Time Site Value (mmHg) Purpose Heart Use Rate(bpm) 9:55 LV 137/19,52 Snapshot 55 Snapshots Pre Cath Intra NCS Post Cath Vital Signs Time Heart Resp SPO2 etCO2 NIBP (mmHg) Rhythm Pain Sedation Rate (ipm) (%) (mmHg) Status Level (bpm) 9:40:13 61 17 99 0 179/90(156) NSR 0 (11) 10(A) , No pain 9:44:56 58 16 95 18.9 156/99(139) NSR 0 (11) 10(A) , No pain 9:49:26 60 16 99 28 173/91(144) NSR 0 (11) 10(A) , No pain 9:53:46 56 17 94 31 144/91(115) NSR 0 (11) 9(A) , No pain 9:59:12 59 16 97 33.3 159/83(121) NSR 0 (11) 9(A) , No pain 10:03:48 68 17 97 34.2 150/78(117) NSR 0 (11) 9(A) , No pain 10:08:09 69 16 99 34.8 140/84(128) NSR 0 (11) 9(A) , No pain 10:12:35 65 16 99 30.3 140/81(126) NSR 0 (11) 9(A) , No pain Medications Time Medication Route Dose Verified Delivered Reason Notes Effectiveness by by 9:41:26 Oxygen etCO2 2 Javier Welsh Per physician Nasal l/min Thanh Soria RN cannula 9:41:35 Heparin Flush added 2 Javier Welsh used for Bag to bags Thanh Soria RN procedure (1000units/500ml field NS) 9:41:44 0.9% NaCl I.V. 100 Javier Welsh Per physician ml/hr Thanh Soria RN 9:49:06 Fentanyl I.V. 50 Javier Welsh for sedation mcg Thanh Soria RN 9:49:12 Versed I.V. 1 mg Javier Welsh for sedation Thanh Soria RN 9:54:48 Fentanyl I.V. 50 Javier Welsh for sedation mcg Thanh Soria RN 9:54:53 Versed I.V. 1 mg Javier Welsh for sedation Thanh Soria RN 10:02:38 Heparin Bolus I.V. 4000 Javier Welsh for units Thanh Soria RN anticoagulation Procedure Log Time Note 9:20:10 Blaise Soria RN sent for patient. Start room use. 9:23:45 Diagnostic Cath Status : Elective 9:24:13 Time tracking: Regular hours 9:24:17 Plan of Care:Hemodynamics will remain stable., Cardiac rhythm will remain stable., Comfort level will be maintained., Respiratory function will remain adequate., Patient/ family verbilizes understanding of procedure., Procedure tolerated without complication., Recovers from procedure without complications.. 9:33:07 Patient received from Med II to [facility] 3 Alert and oriented. Tansferred to table in Supine position. 9:33:09 Warm blankets applied, and kailee hugger turned on for patient comfort. 9:33:10 Correct patient and procedure confirmed by team. 9:33:18 Signed procedure consent form obtained from patient. 9:38:41 ECG and BP/O2 sat monitors applied to patient. 9:38:42 Vital chart was started 9:38:49 Baseline sample Acquired. 9:38:57 Rhythm: sinus rhythm 9:39:10 H&P Date Dictated: 01/30/2018 Within 30 days and on chart.. 9:39:11 Pre-procedure instructions explained to patient. 9:39:12 Pre-op teaching completed and patient verbalized understanding. 9:39:13 Family in patients room. 9:39:14 Patient NPO since Midnight. 9:39:53 Patient allergic to Other allergyFeldene, PCN, Lipitor, Hydrocodone, Vicodin, Meropenen, Effient, Crestor. 9:39:56 Is the patient allergic to Iodine/contrast media? No. 9:39:57 Is patient on blood thinner?Yes 9:40:00 ACC The patient was administered the following blood thiners within the last 24 hours: ACCPlavix, Eliquis 9:40:02 Patient diabetic? No. 9:40:04 Previous problem with sedation/anesthesia? No ? 9:40:05 Snore? Yes 9:40:06 Sleep apnea? Yes 9:40:07 Deviated septum? No 9:40:07 Opens mouth fully? Yes 9:40:08 Sticks out tongue? Yes 9:40:10 Airway obstruction? No ? 9:40:11 Dentures? No ? 9:40:13 Pre procedure: right dorsailis pedis pulse 2+ Normal; easily identifiable; not easily obliterated 9:40:15 Patient pain scale 0/10 ?. 9:40:22 IV patent on arrival in left forearm with 0.9% NaCl at O. 9:40:24 Lab results completed and on chart. 9:41:02 Lab Result : BUN 18 mg/dl 9:41:02 Lab Result : Hemoglobin 18.2 g/dl 9:41:02 Lab Result : Creatinine 1.4 mg/dl 9:41:02 Lab Result : Hematocrit 52.6 % 9:41:06 Right groin area was prepped with chlora-prep and aped in sterile fashion 9:41:08 Use device set Femoral Dx 9:41:09 ACIST Syringe (87624) opened to sterile field. 9:41:10 Bag Decanter (2002S) opened to sterile field. 9:41:10 Medline Cath Pack ([id number]) opened to sterile field. 9:41:12 ACIST Hand Control (01613) opened to sterile field. 9:41:13 ACIST Manifold (33158) opened to sterile field. 9:41:13 DIAGNOSTIC Multipack 5Fr catheter set ([id number]) opened to sterile field. 9:41:14 Tegaderm 4 x 4 (1626W) opened to sterile field. 9:41:15 PERCUTANEOUS ENTRY 19GA needle opened to sterile field. 9:41:16 DIAGNOSTIC WIRE .035 260cm J wire (291294) opened to sterile field. 9:41:26 Oxygen 2 l/min etCO2 Nasal cannula was administered by Blaise Soria RN; Per physician; 9:41:27 SHEATH 5Fr Prelude ([id number]) opened to sterile field. 9:41:34 Alarms reviewed by R. N. 9:41:34 Sharps counted by scrub and verified by R.N. 9:41:35 Heparin Flush Bag (1000units/500ml NS) 2 bags added to field was administered by Blaise Soria RN; used for procedure; 9:41:44 0.9% NaCl 100 ml/hr I.V. was administered by Blaise Soria RN; Per physician; 9:42:10 Procedure type changed to Cath procedure, Diagnostic procedure, LHC, LHC w/Coronaries w/Grafts, Sedation Charges, Moderate Sedation up to 15 minutes, PCI procedure, AMI/SVG/FUNERAL ATTENDANT PTCA or Stent, SVG-BMS/VANDANA Initial 9:48:47 Physician arrived 9:48:48 --------ALL STOP TIME OUT------ 9:48:48 Final Timeout: patient, procedure, and site verified with staff and physician. All members of the team are in agreement. 9:48:52 Right groin site verified by team. 9:48:55 Physical assessment completed. ASA score P 2 - A patient with mild systemic disease as per Javier Law MD. 9:48:58 Sedation plan: IV Moderate Sedation Medication:Versed, Fentanyl 9:49:06 Fentanyl 50 mcg I.V. was administered by Blaise Soria RN; for sedation; 9:49:12 Versed 1 mg I.V. was administered by Blaise Soria RN; for sedation; 9:52:52 Procedure started. 9:52:52 Full Disclosure recording started 9:52:54 Zero performed for pressure channel P1 9:52:58 Zero performed for pressure channel P1 9:53:05 Zero performed for pressure channel P1 9:53:18 Local anesthetic to right femoral artery with Lidocaine 2% by Javier Law MD.INITIAL ACCESS ONLY 9:53:34 A 5 Fr sheath was inserted into the Right Femoral artery 9:54:05 A MULTIPACK Pigtail 5 Fr catheter was advanced over the wire and used for LV Angiography. 9:54:48 Fentanyl 50 mcg I.V. was administered by Blaise Soria RN; for sedation; 9:54:53 Versed 1 mg I.V. was administered by Blaise Soria RN; for sedation; 9:55:12 LV hemodynamics recorded. 9:55:13 LV gram done using ZIMMERMAN 9:55:15 Injector settings: Ml/sec: 5, Volume: 15, 9:55:23 EF : 55 % 9:55:31 Catheter removed. 9:55:36 A MULTIPACK JL 4.0 5Fr catheter was advanced over the wire and used for Left Coronary Angiography. 9:57:29 LCA angiography performed. 9:57:32 Injector settings: Ml/sec: 3, Volume: 6, 9:57:35 Catheter removed. 9:57:42 A MULTIPACK 3DRC 5Fr catheter was advanced over the wire and used for Multi-vessel Angiography. 9:58:29 EDWARDS angiography performed. 9:58:51 RCA angiography performed. 9:58:57 Catheter removed. 9:59:12 A DIAGNOSTIC AR 1 MOD 5Fr catheter ([id number]) was advanced over the wire and used for Multi-vessel Angiography. 9:59:45 SVG to OM angiography performed. 10:00:15 SVG to LAD angiography performed. 10:00:29 Catheter removed. 10:00:31 Proceeding to intervention. 10:00:43 GUIDE 6FR AR 2.0 SH catheter ([id number]) opened to sterile field. 10:00:58 CHOICE PT Extra Support J 300cm guide wire ([id number]) opened to sterile field. 10:01:31 INFLATOR Merit GautamComsanthoshk (CL8570) opened to sterile field. 10:02:13 SHEATH 6Fr Prelude ([id number]) opened to sterile field. 10:02:21 Sheath upsized to a 6 Fr Short. 10:02:26 6 Fr ar 2 sh guide catheter was inserted over the wire 10::31 choice pt wire advanced. 10:02:38 Heparin Bolus 4000 units I.V. was administered by Blaise Soria RN; for anticoagulation; 10:03:55 Wire advanced across lesion. 10:05:09 Place stent Inflation Number: 1 A JORI OTW 3.5 x 12 stent ([id number]) was prepped and advanced across the Aorta Left -> 1st Ob Romi. The stent was deployed at 13 [place]YSON for 0:10 (min:sec). 10:06:16 Stent catheter was removed intact over wire. 10:07:02 Wire redirected to om 2. 10:07:12 Place stent Inflation Number: 1 A JORI OTW 3.5 x 18 stent ([id number]) was prepped and advanced across the Aorta Left -> 2nd Ob Romi. The stent was deployed at 17 ALLYSON for 0:10 (min:sec). 10:08:22 Stent catheter was removed intact over wire. 10:08:23 Wire removed. 10:08:23 Guide catheter removed. 10:08:29 EXOSEAL 6Fr (EX600) opened to sterile field. 10:08:38 Sheath removed intact; hemostasis achieved with Exoseal to the Right Femoral artery. 10:08:41 Procedure ended.(Physican Out) 10:08:49 Fluoroscopy time 03.90 minutes. 10:09:02 Flurop Dose total: 201 10:09:02 Fluoroscopy dose: 201 mGy 10:09:07 Contrast amount:Isovue 300 104ml. 10:09:09 Sharps counted by scrub and verified by R.N. 10:09:10 Insertion/operative site no bleeding no hematoma. 10:09:13 Post-op/insertion site Right Femoral artery dressed using a 4 x 4 and Tegaderm. 10:09:15 Post right femoral artery:stable 10:09:17 Post Procedure Pulses reassessed and unchanged 10:09:19 Post procedure rhythm: unchanged. 10:09:21 Estimated blood loss: 5 ml 10:09:25 Post procedure instruction explained to patient.Patient verbalizes understanding. 10:09:25 Patient needs reinforcement of post procedure teaching. 10:09:27 Procedure and supply charges have been captured, reviewed, submitted and are correct. 10:11:29 Procedure Complication : No complications 10::32 Vital chart was stopped 10::32 See physician's report for complete and final results. 10:11:43 Report given to [facility]. 10:12:05 Patient transfered to [facility] with Stretcher. 10:12:07 Procedure ended. 10:12:07 Full Disclosure recording stopped 10:12:16 ACC-PCI Only Patient was given prescriptions, or instructed by Javier Law MD to start/continue the following medications upon discharge: Plavix 10:12:17 End room use (Document Last) Intervention Summary Intervention Notes Time ActionType Lesion and Equipment Action# Pressure Duration Attributes Used 10:05:09 Place stent Aorta Left JORI OTW 3.5 1 13 00:10 -> 1st Ob x 12 stent Romi ([id number]) 10:07:12 Place stent Aorta Left JROI OTW 3.5 1 17 00:10 -> 2nd Ob x 18 stent Romi ([id number]) Device Usage Item Name Manufacture Quantity Catalog Number [facility] Lot# / Charge Number Stock Stock Serial# Code ACIST Syringe Acist 1 71141 706667 433462 [id number] 20 (97701) Medical Systems Inc Bag Decanter Microtek 1 342767 42858 735729 5 () Medical Inc. Medline Cath Cardinal 1 [id number] 111713 87223 270396 5 Pack Health ([id number]) ACIST Hand Acist 1 58466 897939 956051 302020 5 Control Medical (33502) Systems Inc ACIST Acist 1 77274 918516 184078 297881 5 Manifold Medical (52702) Systems Inc DIAGNOSTIC Cardinal 1 IX3810 381334 32224 020857 30 Multipack 5Fr Health catheter set (XO1405) Tegaderm 4 x 3M 1 1626W 407472 286407 335996 5 4 (1626W) PERCUTANEOUS Cook Medical 1 [id number] 793079 811850 5 ENTRY 19GA needle DIAGNOSTIC [address] Thierry 1 706112 011617 067544 051164 30 WIRE .035 260cm J wire (464138) SHEATH 5Fr Merit 1 [id number] 785014 997985 640166 5 Prelude Medical ([id number]) MULTIPACK Cardinal 1 863827 5 Pigtail 5 Fr Health catheter MULTIPACK JL Cardinal 1 918862 5 4.0 5Fr Health catheter MULTIPACK Cardinal 1 890043 5 3DRC 5Fr Health catheter DIAGNOSTIC AR Cardinal 1 [id number] 517034 434082 352549 15 1 MOD 5Fr Health catheter (349004B) GUIDE 6FR AR Medtronic 1 [id number] 054233 51748 507685 1 2.0 SH catheter ([id number]) CHOICE PT [place] 1 [id number] 737466 021703 710844 5 Extra Support Scientific J 300cm guide wire ([id number]) INFLATOR Merit 1 BZ4363 077728 977308 782079 15 [facility] [place] Medical BasixCompak (RI4659) SHEATH 6Fr Merit 1 [id number] 550030 955524 954289 5 Prelude Medical ([id number]) JORI OTW 3.5 Medtronic 1 [id number] 667104 2486792 187040 5 [id number] x 12 stent ([id number]) JORI OTW 3.5 Medtronic 1 [id number] 530167 6290589 172500 5 [id number] x 18 stent ([id number]) EXOSEAL 6Fr Cardinal 1 EX600 513293 988169 728449 10 (EX600) Health Signature Audit Wayne Stage Time Signature Unsigned Intra-Procedure 01/31/2018 Renita Springer 10:14:06 AM RT(R) Signatures Monitor : Renita Springer RT Signature : Date : Time : [facility] [address] [place] [address]
--- NOTE | ~2018-01-30 | OP ---
PATIENT NAME: LUIGI BORJA MEDICAL RECORD: [id number] :48 LOCATION:[facility]- ADMISSION DATE:01/30/18 SURGEON: LEIGHTON WILLIS MD DATE OF OPERATION: 01/31/2018 PROCEDURES: 1. PTCA stent vein graft to the first obtuse marginal. 2. PTCA stent vein graft to the second obtuse marginal. 3. Left heart catheterization. 4. Selective coronary angiography. 5. Vein graft angiography. 6. EDWARDS angiography. INDICATION: Angina and coronary artery disease. PROCEDURE IN DETAIL: After informed consent was obtained and after a detailed description of risks, benefits as well as alternative therapies, the patient elected to proceed with angiogram and angioplasty. The right femoral area was prepped and draped in normal sterile fashion. Right femoral artery was cannulated via modified Seldinger technique with placement of 6-Dominican sheath. All catheters exchanged through this sheath. FINDINGS: Left ventriculogram was performed in standard 30-degree ZIMMERMAN view, reveals good cardiac wall motion throughout all segments. Overall ejection fraction estimated at 55%. SELECTIVE CORONARY ANGIOGRAPHY: 1. Left main is with no significant angiographic disease. 2. Left anterior descending stented leading to a non-grafted diagonal. There is up to 80% in-stent restenosis. The left anterior descending is then totally occluded. 3. EDWARDS to the distal LAD is widely patent. Distal LAD is widely patent. 4. Left circumflex is totally occluded. 5. Vein graft to the first obtuse marginal was patent with 90% stenosis at the ostium. 6. Vein graft to the second obtuse marginal is patent with 90% stenosis in the proximal vessel. 7. The right coronary artery is totally occluded as is the vein graft to the right coronary artery. PTCA STENT OF THE VEIN GRAFT TO THE FIRST AND SECOND OBTUSE MARGINAL: Stents used were 3.5 x 12 mm Demetrio in the first obtuse marginal and 3.5 x 18 mm [place] in the second obtuse marginal vein graft. The result was 0% residual stenosis. OVERALL IMPRESSION: Successful percutaneous transluminal angioplasty stent of the vein graft to the first and second obtuse marginal going from 90% initial stenosis to 0% residual. PLAN: PTCA stent of the LAD diagonal in the near future. TRANSINT:[id number] Voice Confirmation ID: [id number] DOCUMENT ID: [id number] OPERATIVE REPORT [id number] LUIGI BORJA, LEIGHTON CHOI at 1056 CC: [id number] DICTATION DATE: 01/31/18 1013 ENVIRONMENTAL FIELD TEAM MEMBER: 01/31/18 1238 DIS IN 02/01/18 [id number] [place] [address]
--- NOTE | ~2018-01-30 | OP ---
PATIENT NAME: LUIGI BORJA MEDICAL RECORD: [id number] :48 LOCATION:[facility]- ADMISSION DATE:01/30/18 SURGEON: LEIGHTON WILLIS MD DATE OF OPERATION: 02/01/2018 PROCEDURES: 1. PTCA and stent of LAD diagonal. 2. Selective coronary angiography. INDICATION: Angina and coronary artery disease. DESCRIPTION OF PROCEDURE: Informed consent was obtained after detailed explanation of risks, benefits as well as alternative therapies. The patient elected to proceed with angiogram and angioplasty. The left femoral area was prepped and draped in normal sterile fashion. Left femoral artery was cannulated via modified Seldinger technique with placement of 6-[place]ub[place] sheath. All catheter exchanges through this sheath. FINDINGS: The left anterior descending diagonal is nongrafted and has 80% to 90% stenosis proximally. This was addressed with a 2.5 x 34 mm Watson stent. Result was 0% residual stenosis. OVERALL IMPRESSION: Successful PTCA and stent of the LAD diagonal going from 80% to 90% initial stenosis to 0% residual. TRANSINT:[id number] Voice Confirmation ID: [id number] DOCUMENT ID: [id number] LEIGHTON WILLIS MD at 1056 CC: [id number] DICTATION DATE: 02/01/18 0934 CAR CARDER: 02/01/18 1049 DIS IN 02/01/18 [id number] [place] [address]
--- NOTE | ~2018-01-30 | DS ---
PATIENT:LUIGI BORJA :48 MEDICAL RECORD: [id number] DISCHARGE SUMMARY ADMISSION DATE: 01/30/18 DISCHARGE DATE: 02/01/18 DIAGNOSES: 1. Unstable angina. 2. Coronary artery disease. 3. Percutaneous transluminal coronary angioplasty stent, 2 vein grafts to the left circumflex and [place] LAD diagonal this admission. HOSPITAL COURSE: This is a gentleman who presents with anginal symptomatology, found to have 3-vessel disease, 2 vein grafts to the circumflex, and a non-grafted LAD diagonal, underwent successful PTCA stent of all territories, discharged home with the addition of aspirin and Plavix to his medical regimen. We will follow up with [facility] in 1 month. TRANSINT:[id number] Voice Confirmation ID: [id number] DOCUMENT ID: [id number] LEIGHTON WILLIS MD at 1057 CC: [id number] DICTATION DATE: 02/01/18 0934 PLANER SETTER: 02/01/18 1201 DIS IN 02/01/18 [facility] [address] [place] [address]
[2018-01-30] MEDS ORDERED: ISOSORBIDE MONO30 M1 PO (15:01)
[2018-01-30] MEDS ORDERED: ELIQUIS5 MG PO (15:02)
[2018-01-30 15:11] VITALS: BP 130/74; Ht 180.3 cm; Wt 78.4 kg
[2018-01-30 20:00] VITALS: BP 122/78
[2018-01-31 00:49] VITALS: BP 119/67
[2018-01-31 06:46] VITALS: BP 120/70
[2018-01-31 07:44] VITALS: BP 122/74
[2018-01-31 07:44] LABS: ANION GAP 11.4 mmol/L (8-16); CARBON DIOXIDE 30.3 mmol/L (21.0-32.0); CREATININE - SERUM 1.4 mg/dL (0.6-1.3); POTASSIUM - SERUM 4.7 mmol/L (3.5-5.1)
[2018-01-31 07:49] LABS: BASOPHILS 0.5 % (0-2); EOSINOPHILS 2.8 % (0-7); HEMATOCRIT 52.6 % (42.0-54.0); HEMOGLOBIN 18.2 g/dL (13.5-17.5); IMMATURE GRANULOCYTES 0.6 % (0-5); LYMPHOCYTES 22.1 % (15-50); MCH 31.4 pg (26.0-34.0); MCHC 34.6 g/dL (31.0-37.0); MCV 90.8 fL (80.0-100.0); MEAN PLATELET VOLUME 9.3 fL (7.4-10.4); MONOCYTES 7.2 % (2-11); NEUTROPHILS 66.8 % (40-80); PLATELET COUNT 175 10x3/uL (130-400); RBC 5.79 10x6/uL (4.20-6.10); RDW 12.7 % (11.5-14.5); WBC 6.4 10x3/uL (4.8-10.8)
[2018-01-31 14:46] VITALS: BP 126/82
[2018-01-31 21:33] VITALS: BP 125/74
[2018-02-01 01:40] VITALS: BP 96/51
[2018-02-01 05:35] VITALS: BP 108/56
[2018-02-01] MEDS ORDERED: PLAVIX75 MG PO (09:52)
== END 2018-02-01 13:35 | disposition home or self-care (01) ==
LOC: OBSVTIME → D.M2 14:18 → UNDOADMOB 14:18 → D.CATH 14:18 → D.M2 14:18 → OBSVTIME 14:19 → EDSTATUS 01-31 10:30 → D.CLR 02-01 09:42 → D.M2 02-01 09:42 → D.SDCHOLD 02-01 11:10 → D.CLR 02-01 11:10 → D.SDCHOLD 02-01 13:35 → D.CATH 02-01 13:35
PROVIDERS: Internal Medicine Interventional Cardiology
DX: I25.110 Atherosclerotic heart disease of native coronary artery with unstable angina pectoris (principal); I25.710 Atherosclerosis of autologous vein coronary artery bypass graft(s) with unstable angina pectoris; Z01.812 Encounter for preprocedural laboratory examination
CPT/HCPCS: 93459; C9604; C9605; C9600

== ENCOUNTER 2018-10-13 09:53 | Outpatient (CLI) | payer MEDICARE, OTHER ==
[~2018-10-13] VITALS: Ht 180.3 cm; Wt 77.3 kg
--- NOTE | ~2018-10-13 | HEMODYNAMI ---
PATIENT:LUIGI BORJA MEDICAL RECORD: [id number] : 48 LOCATION:D.CAT ADMISSION DATE: 10/13/18 Generatedon:10/13/201813:35 Patient name: LUIGI BORJA Patient #: [id number] : 1950 Date of study: 10/13/2018 Page: Of Hemodynamic Procedure Report Patient Data Patient Demographics Procedure consent was obtained First Name: LUIGI Gender: Male Last Name: JONH : 1950 Middle Initial: M Age: 68 year(s) Patient #: [id number] Race: SSN: [id number] Additional ID: [id number] Contact details Address: [address] [place] [address] State: [place] City: [place] Zip code: [address] Past Medical History Allergies Allergen Reaction Date Comments Reported Penicillins 02/17/2015 Other allergy 02/17/2015 Feldene Lipitor 02/17/2015 Other allergy 02/17/2015 Meropenem Other allergy 02/04/2017 PCN, Feldene, Statins,Meropenen Other allergy 01/31/2018 Feldene, PCN, Lipitor, Hydrocodone, Vicodin, Meropenen, Effient, Crestor. Other allergy 10/13/2018 CRESTOR, FELDENE, LIPITOR, MEROPENEM, PCN Admission Admission Data Admission Date: 10/13/2018 Admission Time: 9:53 Height (in.): 71 BSA: 2.04 (m2) Height (cm.): 180.34 BMI: 25.66 (kg/m2) Weight (lbs.): 184 Weight (kg.): 83.46 Lab Results Lab Result Date: 10/13/2018 Lab Result Time: 0:00 Biochemistry Name Units Result Min Max BUN mg/dl 12 --(-*--)-- 7 18 Creatinine mg/dl 1.2 --(---*)-- 0.6 1.3 CBC Name Units Result Min Max Hemoglobin g/dl 17.4 --(---*)-- 13.5 17.5 Procedure Procedure Types Cath Procedure Diagnostic Procedure [facility] LH w/Coronaries w/Grafts FFR/IVUS Intra-Coronary IVUS Initial Sedation Charges Moderate Sedation up to 15 minutes PCI Procedure Coronary Stent Coronary Stent Initial Procedure Description Procedure Date Procedure Date: 10/13/2018 Procedure Start Time: 13:07 Procedure End Time: 13:34 Procedure Staff Name Function Javier Law MD Performing Physician Riya Merchant RT Monitor Tommie Pierre RT Scrub Dave Munoz RN Nurse Procedure Data Cath Procedure Fluoroscopy Diagnostic fluoroscopy Total fluoroscopy Time: 6.3 time: 6.3 min min Diagnostic fluoroscopy Total fluoroscopy dose: 618 dose: 618 mGy mGy Contrast Material Contrast Material Type Amount (ml) Isovue 300 89 Entry Location Entry Primary Successful Side Size Upsize Upsize Entry Closure Succes sful Closure Location (Fr) 1 (Fr) 2 (Fr) Remarks Device Remarks Femoral Right 5 Fr 6 Fr Exoseal artery Short Estimated blood loss: 10 ml Diagnostic catheters Device Type Used For End Catheter Placement MULTIPACK Pigtail 5 Fr Procedure catheter MULTIPACK JL 4.0 5Fr Procedure catheter MULTIPACK 3DRC 5Fr Procedure catheter Procedure Complications No complications Procedure Medications Medication Administration Route Dosage Oxygen etCO2 Nasal cannula 2 l/min Lidocaine 2% added to field 20 Heparin Flush Bag added to field 2 bags (1000units/500ml NS) 0.9% NaCl I.V. 100 ml/hr Versed I.V. 1 mg Fentanyl I.V. 50 mcg Versed I.V. 1 mg Fentanyl I.V. 50 mcg Heparin Bolus I.V. 4000 units Versed I.V. 1 mg Fentanyl I.V. 50 mcg Versed I.V. 1 mg Fentanyl I.V. 50 mcg Hemodynamics Rest BSA: 2.04 (m2) HGB: 17.4 (g/dl) O2 Consumption: Estimated: 234.54 (ml/min) O2 Co nsumption indexed: Estimated:114.97 (ml/min/m) Heart Rate: 68 (bpm) Snapshots Pre Cath Intra NCS Post Cath Vital Signs Time Heart Resp SPO2 etCO2 NIBP (mmHg) Rhythm Pain Sedation Rate (ipm) (%) (mmHg) Status Level (bpm) 12:54:23 70 11 99 35.8 No Cuff NSR 0 (11) 10(A) , No pain 12:58:35 71 15 100 41 151/100(129) NSR 0 (11) 10(A) , No pain 13:02:53 65 17 96 32.8 136/80(126) NSR 0 (11) 10(A) , No pain 13:07:04 67 17 99 13.4 155/84(133) NSR 0 (11) 10(A) , No pain 13:11:21 69 17 99 32.8 144/85(124) NSR 0 (11) 9(A) , No pain 13:15:34 72 13 99 0 143/86(123) NSR 0 (11) 9(A) , No pain 13:19:47 89 17 98 32.8 143/80(101) NSR 0 (11) 9(A) , No pain 13:23:51 80 13 96 33.5 142/90(112) NSR 0 (11) 9(A) , No pain 13:28:01 87 16 97 35 150/105(131) NSR 0 (11) 10(A) , No pain 13:33:00 81 27 98 35.8 Measuring NSR 0 (11) 10(A) , No pain 13:33:10 83 22 98 35.8 157/86(126) NSR 0 (11) 10(A) , No pain Medications Time Medication Route Dose Verified Delivered Reason Notes Effectiveness by by 12:53:44 Oxygen etCO2 2 Javier Carinie used for Nasal l/min Thanh Munoz RN procedure cannula 12:53:50 Lidocaine 2% added 20ml Javier Herrera for local to vial Thanh Law MD anesthetic field 12:53:56 Heparin Flush added 2 Javier Javier used for Bag to bags Thanh Law MD procedure (1000units/500ml field NS) 12:54:05 0.9% NaCl I.V. 100 Javiermell Del Rosarioie Per physician ml/hr Thanh Munoz RN 13:04:53 Versed I.V. 1 mg Javier Del Rosarioie for sedation Thanh Munoz RN 13:04:59 Fentanyl I.V. 50 Javier Carinie for sedation mcg Thanh Munoz RN 13:07:12 Versed I.V. 1 mg Javiermell Del Rosarioie for sedation Thanh Munoz RN 13:07:16 Fentanyl I.V. 50 Javier Buffie for sedation mcg Thanh Munoz RN 13:11:01 Fentanyl I.V. 50 Javier Carinie for sedation mcg Thanh Munoz RN 13:11:57 Versed I.V. 1 mg Javier Buffie for sedation Thanh Munoz RN 13:16:44 Heparin Bolus I.V. 4000 Javier Buffie for verif ied units Thanh Munoz RN anticoagulation with dr law 13:20:26 Versed I.V. 1 mg Javier Buffie for sedation Thanh Munoz RN 13:20:30 Fentanyl I.V. 50 Javier Buffie for sedation mcg Thanh Munoz RN Procedure Log Time Note 12:36:40 Signed procedure consent form obtained from patient. 12:36:41 Diagnostic Cath status Elective 12:36:43 Time tracking: Regular hours (M-F 7:00 - 5:00) 12:36:46 Plan of Care:Hemodynamics will remain stable., Cardiac rhythm will remain stable., Comfort level will be maintained., Respiratory function will remain adequate., Patient/ family verbilizes understanding of procedure., Procedure tolerated without complication., Recovers from procedure without complications.. 12:36:57 H&P Date Dictated: 10/12/2018 Within 30 days and on chart., H&P Addendum completed by physician on day of procedure. (MUST COMPLETE FOR ALL OUTPATIENTS). 12:37:29 Patient allergic to Other allergyCRESTOR, FELDENE, LIPITOR, MEROPENEM, PCN 12:38:40 Riya Merchant RT(R) sent for patient. Start room use. 12:44:34 Patient received from Pre/Post Procedure Room to CCL 2 Alert and oriented. Tansferred to table in Supine position. 12:44:36 Warm blankets applied, and kailee hugger turned on for patient comfort. 12:44:36 Correct patient and procedure confirmed by team. 12:44:37 ECG and BP/O2 sat monitors applied to patient. 12:44:38 Pre-procedure instructions explained to patient. 12:44:39 Pre-op teaching completed and patient verbalized understanding. 12:44:40 Family in waiting room. 12:44:42 Patient NPO since Midnight. 12:53:34 Vital chart was started 12:53:44 Oxygen 2 l/min etCO2 Nasal cannula was administered by Dave Munoz RN; used for procedure; 12:53:50 Lidocaine 2% 20ml vial added to field was administered by Javier Law MD; for local anesthetic; 12:53:56 Heparin Flush Bag (1000units/500ml NS) 2 bags added to field was administered by Javier Law MD; used for procedure; 12:54:05 0.9% NaCl 100 ml/hr I.V. was administered by Dave Munoz RN; Per physician; 12:54:56 Baseline sample Acquired. 12:54:59 Rhythm: sinus rhythm 12:55:00 Full Disclosure recording started 12:55:04 Is patient on blood thinner?Yes 12:55:21 PLAVIX TODAY. ELIQUIS HELD SINCE TUESDAY 12:55:23 Patient diabetic? No. 12:55:26 Previous problem with sedation/anesthesia? No ? 12:55:27 Snore? Yes 12:55:28 Sleep apnea? Yes 12:55:29 Deviated septum? No 12:55:30 Opens mouth fully? Yes 12:55:31 Sticks out tongue? Yes 12:55:32 Airway obstruction? No ? 12:55:34 Dentures? No ? 12:55:37 Pre procedure: right dorsailis pedis pulse 2+ Normal; easily identifiable; not easily obliterated 12:55:40 Patient pain scale 0/10 ?. 12:55:45 IV patent on arrival in left hand with 0.9% NaCl at [facility]. 12:56:17 Lab Result : Creatinine 1.2 mg/dl 12:56:17 Lab Result : BUN 12 mg/dl 12:56:17 Lab Result : Hemoglobin 17.4 g/dl 12:56:21 Lab results completed and on chart. 12:56:28 Right groin area was prepped with chlora-prep and draped in sterile fashion 12:56:29 Alarms reviewed by R. N. 12:56:30 Sharps counted by scrub and verified by R.N. 12:56:33 Use device set Femoral Dx 12:56:35 ACIST Syringe (94784) opened to sterile field. 12:56:35 Bag Decanter (2002) opened to sterile field. 12:56:36 ACIST Hand Control (77702) opened to sterile field. 12:56:37 ACIST Manifold (62556) opened to sterile field. 12:56:38 Tegaderm 4 x 4 (1626W) opened to sterile field. 12:56:39 Medline Cath Pack ([id number]) opened to sterile field. 12:56:39 DIAGNOSTIC WIRE .035 260cm J wire (371185) opened to sterile field. 12:56:41 DIAGNOSTIC Multipack 5Fr catheter set (AB0116) opened to sterile field. 12:56:42 SHEATH 5FR [place] (MLA078) opened to sterile field. 12:57:28 Patient Height : 71 inches 12:57:32 Patient Weight : 184 lbs 13:03:55 --------ALL STOP TIME OUT------ 13:03:56 Final Timeout: patient, procedure, and site verified with staff and physician. All members of the team are in agreement. 13:03:58 Right groin site verified by team. 13:04:01 Physical assessment completed. ASA score P 2 - A patient with mild systemic disease as per Javier Law MD. 13:04:04 Sedation plan: IV Moderate Sedation Medication:Versed, Fentanyl 13:04:53 Versed 1 mg I.V. was administered by Dave Munoz RN; for sedation; 13:04:59 Fentanyl 50 mcg I.V. was administered by Dave Munoz RN; for sedation; 13:07:12 Versed 1 mg I.V. was administered by Dave Munoz RN; for sedation; 13:07:16 Fentanyl 50 mcg I.V. was administered by Dave Munoz RN; for sedation; 13:07:24 Procedure started. 13:07:28 Zero performed for pressure channel P1 13:07:38 Local anesthetic to right femoral artery with Lidocaine 2% by Javier Law MD.INITIAL ACCESS ONLY 13:07:48 Zero performed for pressure channel P1 13:09:24 A 5 Fr sheath was inserted into the Right Femoral artery 13:09:30 A MULTIPACK Pigtail 5 Fr catheter was advanced over the wire and used for Procedure. 13:09:51 LV gram done using ZIMMREMAN 13:09:53 Injector settings: Ml/sec: 10, Volume: 20, 13:10:05 EF : 55 % 13:10:06 Catheter removed. 13:10:13 A MULTIPACK JL 4.0 5Fr catheter was advanced over the wire and used for Procedure. 13:11:00 LCA angiography performed. 13:11:01 Fentanyl 50 mcg I.V. was administered by Dave Munoz RN; for sedation; 13:11:02 Catheter removed. 13:11:07 A MULTIPACK 3DRC 5Fr catheter was advanced over the wire and used for Procedure. 13:11:57 Versed 1 mg I.V. was administered by Dave Munoz RN; for sedation; 13:12:01 EDWARDS to LAD angiography performed. 13:12:39 RCA angiography performed. 13:12:49 RCA CLOSED 13:12:56 SVG to Diag angiography performed. 13:13:21 SVG to Circ angiography performed. 13:13:31 Catheter removed. 13:13:52 SHEATH 6FR [place] (HXO372) opened to sterile field. 13:13:58 GUIDE 6FR AR 2.0 catheter (KS6YV98) opened to sterile field. 13:14:09 CHOICE PT Extra Support 182cm wire ([id number]) opened to sterile field. 13:14:16 INFLATOR Merit BasixCompak (WY7400) opened to sterile field. 13:14:21 Henley [place] Eagleye IVUS Catheter (26912H) opened to sterile field. 13:14:27 Sheath upsized to a 6 Fr Short. 13:15:55 6 Fr AR 2 guide catheter was inserted over the wire 13:16:35 CHOICE ES 182 wire advanced. 13:16:38 Wire advanced across lesion. 13:16:44 Heparin Bolus 4000 units I.V. was administered by Dave Munoz RN; for anticoagulation; verified with dr law 13:19:40 IVUS catheter advanced over wire. 13:19:44 IVUS pass to Diag lesion performed. 13:19:49 IVUS catheter removed over wire. 13:20:26 Versed 1 mg I.V. was administered by Dave Munoz RN; for sedation; 13:20:30 Fentanyl 50 mcg I.V. was administered by Dave Muonz RN; for sedation; 13:21:50 Wire removed. 13:21:57 Guide catheter removed. 13:22:05 GUIDE 6FR XB 3.5 catheter ([id number]) opened to sterile field. 13:22:30 6 Fr XB 3.5 guide catheter was inserted over the wire 13:23:43 CHOICE ES 182 wire advanced. 13:23:51 Wire advanced across lesion. 13:24:44 Inflate balloon Inflation number: 1 A EUPHORA 3.0 x 20 Balloon ([id number]) was prepped and advanced across the Ramus, then inflated to 17 ALLYSON for 0:10 (min:sec). 13:24:57 Inflation number: 2 The EUPHORA 3.0 x 20 Balloon ([id number]) was reinflated across the Ramus, to 13 ALLYSON for 0:10 (min:sec). 13:25:26 Balloon removed over the wire. 13:27:01 Place stent Inflation Number: 3 A JORI RX 3.5 x 15 stent ([id number]) was prepped and advanced across the Ramus. The stent was deployed at 21 ALLYSON for 0:10 (min:sec). 13:27:20 Stent catheter was removed intact over wire. 13:27:22 Wire removed. 13:27:22 Guide catheter removed. 13:28:21 EXOSEAL 6Fr (EX600) opened to sterile field. 13:28:32 Sheath removed intact; hemostasis achieved with Exoseal to the Right Femoral artery. 13:28:34 Procedure ended.(Physican Out) 13:31:04 Fluoroscopy time 06.30 minutes. 13:31:08 Fluoroscopy dose: 618 mGy 13:31:08 Flurop Dose total: 618 13:31:11 Contrast amount:Isovue 300 89ml. 13:31:13 Sharps counted by scrub and verified by R.N. 13:31:15 Post-op/insertion site Right Femoral artery dressed using a 4 x 4 and Tegaderm. 13:31:18 Post right femoral artery:stable, soft, clean and dry 13:31:21 Post-procedure physical assessment completed. ASA score P 2 - A patient with mild systemic disease as per Javier Law MD. 13:31:25 Post procedure rhythm: sinus rhythm 13::27 Estimated blood loss: 10 ml 13:31:29 Post procedure instruction explained to patient.Patient verbalizes understanding. 13:31:29 Patient needs reinforcement of post procedure teaching. 13:32:18 Procedure type changed to Cath procedure, Diagnostic procedure, LHC, LHC w/Coronaries w/Grafts, FFR/IVUS, Intra-Coronary IVUS Initial, Sedation Charges, Moderate Sedation up to 15 minutes, PCI procedure, Coronary Stent, Coronary Stent Initial 13:34:39 Procedure and supply charges have been captured, reviewed, submitted and are correct. 13:34:43 Procedure Complication : No complications 13:34:45 Vital chart was stopped 13:34:45 See physician's report for complete and final results. 13:34:47 Report given to Pre/Post Procedure Room. 13:34:50 Patient transfered to Pre/Post Procedure Room with Bed. 13:34:52 Procedure ended. 13:34:52 Full Disclosure recording stopped 13:34:57 End room use (Document Last) Intervention Summary Intervention Notes Time ActionType Lesion and Equipment Used Action# Pressure Duration Attributes 13:24:44 Inflate Ramus EUPHORA 3.0 x 1 17 00:10 balloon 20 Balloon ([id number]) 13:24:57 Reinflate Ramus EUPHORA 3.0 x 2 13 00:10 balloon 20 Balloon ([id number]) 13:27:01 Place stent Ramus JORI RX 3.5 x 3 21 00:10 15 stent ([id number]) Device Usage Item Name Manufacture Quantity Catalog Number Hospital Part Current M inimal Lot# / Charge Number Stock Stock Serial# Code ACIST Syringe Acist 1 89805 775469 007469 396925 2 0 (38724) Medical Systems Inc Bag Decanter Microtek 1 2001S 258655 93872 996610 5 (2001S) Medical Inc. ACIST Hand Acist 1 86120 599110 391343 523732 5 Control Medical (90155) Systems Inc ACIST Manifold Acist 1 77967 121523 001607 962903 5 (01537) Medical Systems Inc Tegaderm 4 x 4 3M 1 1626W 880931 802637 233351 5 (1626W) Medline Cath Medline 1 [id number] 224139 41837 662485 5 Pack ([id number]) DIAGNOSTIC St Thierry 1 011864 526454 597047 024587 3 0 WIRE .035 260cm J wire (251390) DIAGNOSTIC Cardinal 1 AS3697 788400 35756 602935 3 0 Multipack 5Fr Health catheter set (BG3844) SHEATH 5FR Terumo 1 NSA705 769793 378491 385708 5 [place] (NVK224) MULTIPACK Cardinal 1 524676 5 Pigtail 5 Fr Health catheter MULTIPACK JL Cardinal 1 393894 5 4.0 5Fr Health catheter MULTIPACK 3DRC Cardinal 1 504905 5 5Fr catheter Health SHEATH 6FR Terumo 1 WLZ726 101579 843432 842856 4 0 [place] (QNR269) GUIDE 6FR AR Medtronic 1 OW0SW20 266762 81226 079632 1 2.0 catheter (PE2WQ64) CHOICE PT [place] 1 [id number] 892936 526385 415355 5 Extra Support Scientific 182cm wire ([id number]) INFLATOR Merit Merit 1 YT6043 039758 785967 773808 1 5 [place] (SU7300) Henley Henley 1 59018U 160752 704790 745439 8 [place] Eag[place] IVUS Catheter (52097Y) GUIDE 6FR XB Cardinal 1 39069214 305235 741123 708495 2 3.5 catheter Health (25376564) EUPHORA 3.0 x Medtronic 1 [id number] 593506 151114 395832 5 [id number] 20 Balloon ([id number]) JORI RX 3.5 x Medtronic 1 [id number] 162994 3451189 480188 5 [id number] 15 stent ([id number]) EXOSEAL 6Fr Cardinal 1 EX600 155075 834814 105968 1 0 (EX600) Health Signature Audit [place] Stage Time Signature Unsigned Intra-Procedure 10/13/2018 Riya Merchant 1:35:09 PM RT(R) Signatures Monitor : Riya Merchant Signature : RT Date : Time : [facility] [address] [place] [address]
[2018-10-13] MEDS ORDERED: TERBINAFINE TAB 250 (10:15)
[2018-10-13 10:30] VITALS: BP 150/90; Ht 180.3 cm; Wt 77.3 kg
[2018-10-13 10:34] LABS: BASOPHILS 0.7 % (0-2); EOSINOPHILS 3.2 % (0-7); HEMATOCRIT 49.5 % (42.0-54.0); HEMOGLOBIN 17.4 g/dL (13.5-17.5); IMMATURE GRANULOCYTES 0.7 % (0-5); LYMPHOCYTES 23.6 % (15-50); MCH 31.1 pg (26.0-34.0); MCHC 35.2 g/dL (31.0-37.0); MCV 88.6 fL (80.0-100.0); MEAN PLATELET VOLUME 9.3 fL (7.4-10.4); MONOCYTES 7.3 % (2-11); NEUTROPHILS 64.5 % (40-80); PLATELET COUNT 199 10x3/uL (130-400); RBC 5.59 10x6/uL (4.20-6.10); RDW 13.5 % (11.5-14.5); WBC 7.1 10x3/uL (4.8-10.8)
[2018-10-13 10:43] LABS: ANION GAP 13.4 mmol/L (8-16); CALCIUM 9.5 mg/dL (8.5-10.1); CARBON DIOXIDE 26.6 mmol/L (21.0-32.0); CREATININE - SERUM 1.2 mg/dL (0.6-1.3)
--- NOTE | 2018-10-19 14:56 | OP ---
PATIENT NAME: LUIGI BORJA MEDICAL RECORD: [id number] :48 LOCATION:D.CAT ADMISSION DATE: SURGEON: LEIGHTON WILLIS MD DATE OF OPERATION: 10/13/2018 PROCEDURES: 1. Left heart catheterization. 2. Selective coronary angiography. 3. Left ventriculogram. 4. Vein graft angiography. 5. EDWARDS angiography. 6. PTCA and stent, ramus intermedius. PROCEDURE IN DETAIL: After informed consent was obtained with detailed description of risks and benefits as well as alternative therapies, the patient elected to proceed with angiogram and angioplasty. The right femoral area was prepped and draped in normal sterile fashion. The right femoral artery was cannulated via modified Seldinger technique with placement of 6-Kazakh sheath. All catheters were exchanged through this sheath. FINDINGS: Left ventriculogram performed in standard 30-degree ZIMMERMAN view reveals preserved cardiac wall motion. Ejection fraction 50%. SELECTIVE CORONARY ANGIOGRAPHY: 1. Left main is with no significant angiographic disease. 2. Left anterior descending is totally occluded. 3. EDWARDS to the LAD is widely patent. Distal LAD is widely patent. 4. Vein graft to an LAD diagonal is patent. Intravascular ultrasound reveals that there is no significant stenosis of this vein graft. 5. Left circumflex is totally occluded. 6. Ramus intermedius is patent. It is quite a large vessel comparatively to his other vessels. It has 80% stenosis proximally. 7. Circumflex itself is grafted with a skip graft to OM1 and OM2. This is patent with moderate degeneration, but no flow-limiting stenosis. 8. Right coronary is totally occluded. 9. Vein graft to right coronary is totally occluded. This is an old finding. PTCA AND STENT OF THE RAMUS INTERMEDIUS: The stent used was a 3.5 x 15-mm Demetrio. Result was 0% residual stenosis. OVERALL IMPRESSION: Successful PTCA and stent of the ramus intermedius, going from 80% initial stenosis to 0% residual. TRANSINT:[id number] Voice Confirmation ID: [id number] DOCUMENT ID: [id number] LEIGHTON WILLIS MD at 1456 CC: [id number] DICTATION DATE: 10/13/18 1335 MANAGER STORY: 10/13/18 1739 DEP CLI 10/13/18 [facility] [address] [place] [address]
== END 2018-10-13 17:35 | disposition home or self-care (01) ==
LOC: D.CATH 09:53
PROVIDERS: Internal Medicine Interventional Cardiology
DX: I25.10 Atherosclerotic heart disease of native coronary artery without angina pectoris (principal); Z01.812 Encounter for preprocedural laboratory examination
CPT/HCPCS: 93459; C9600

== ENCOUNTER 2019-01-19 10:05 | Outpatient (CLI) | payer MEDICARE, OTHER ==
[~2019-01-19] VITALS: Ht 180.3 cm; Wt 80.9 kg
--- NOTE | ~2019-01-19 | HEMODYNAMI ---
PATIENT:LUIGI BORJA MEDICAL RECORD: [id number] : 48 LOCATION:D.CAT ADMISSION DATE: 01/19/19 Generatedon:01/19/201914:34 Patient name: LUIGI BORJA Patient #: [id number] : 1950 Date of study: 01/19/2019 Page: Of Hemodynamic Procedure Report Patient Data Patient Demographics Procedure consent was obtained First Name: LUIGI Gender: Male Last Name: JONH : 1950 Middle Initial: M Age: 68 year(s) Patient #: [id number] Race: SSN: [id number] Additional ID: [id number] Contact details [address]: [address] [place] [address] State: [place] City: [place] Zip code: [address] Past Medical History Allergies Allergen Reaction Date Comments Reported Penicillins 02/17/2015 Other allergy 02/17/2015 Feldene Lipitor 02/17/2015 Other allergy 02/17/2015 Meropenem Other allergy 02/04/2017 PCN, Feldene, Statins,Meropenen Other allergy 01/31/2018 Feldene, PCN, Lipitor, Hydrocodone, Vicodin, Meropenen, Effient, Crestor. Other allergy 10/13/2018 CRESTOR, FELDENE, LIPITOR, MEROPENEM, PCN Other allergy 01/19/2019 CRESTOR, FELDENE, LIPITOR, MEROPENEM, PCN Admission Admission Data Admission Date: 01/19/2019 Admission Time: 10:05 Height (in.): 71 BSA: 2.04 (m2) Height (cm.): 180.34 BMI: 25.94 (kg/m2) Weight (lbs.): 186 Weight (kg.): 84.37 Lab Results Lab Result Date: 01/19/2019 Lab Result Time: 0:00 Biochemistry Name Units Result Min Max BUN mg/dl 13 --(--*-)-- 7 18 Creatinine mg/dl 1 --(--*-)-- 0.6 1.3 CBC Name Units Result Min Max Hematocrit % 50.7 --(--*-)-- 42 54 Hemoglobin g/dl 18.1 --(----)*- 13.5 17.5 Procedure Procedure Types Cath Procedure Diagnostic Procedure [facility] w/Coronaries w/Grafts FFR/IVUS Intra-Coronary IVUS Initial Sedation Charges Moderate Sedation up to 15 minutes PCI Procedure AMI/SVG/FLYER MAKER PTCA or Stent SVG-BMS/VANDANA Initial Procedure Description Procedure Date Procedure Date: 01/19/2019 Procedure Start Time: 14:04 Procedure End Time: 14:26 Procedure Staff Name Function Javier Law MD Performing Physician Riya Merchant RT Monitor Tommie Pierre RT Scrub Allison Yi RN Nurse Procedure Data Cath Procedure Fluoroscopy Diagnostic fluoroscopy Total fluoroscopy Time: 6 time: 6 min min Diagnostic fluoroscopy Total fluoroscopy dose: 645 dose: 645 mGy mGy Contrast Material Contrast Material Type Amount (ml) Isovue 300 123 Entry Location Entry Primary Successful Side Size Upsize Upsize Entry Closure Succes sful Closure Location (Fr) 1 (Fr) 2 (Fr) Remarks Device Remarks Femoral Right 5 Fr 6 Fr Exoseal artery Short Estimated blood loss: 10 ml Diagnostic catheters Device Type Used For End Catheter Placement MULTIPACK Pigtail 5 Fr Procedure catheter MULTIPACK JL 4.0 5Fr Procedure catheter MULTIPACK 3DRC 5Fr Procedure catheter DIAGNOSTIC AR2 MOD 5 Fr Procedure catheter ([id number]) Procedure Complications No complications Procedure Medications Medication Administration Route Dosage 0.9% NaCl I.V. 100 ml/hr Oxygen etCO2 Nasal cannula 2 l/min Lidocaine 2% added to field 20 Heparin Flush Bag added to field 2 bags (1000units/500ml NS) Versed I.V. 2 mg Fentanyl I.V. 50 mcg Heparin Bolus I.V. 4000 units Versed I.V. 2 mg Fentanyl I.V. 50 mcg Nitroglycerin IC/IA I.C. 200 mcg Nitroglycerin IC/IA I.C. 200 mcg Hemodynamics Rest BSA: 2.04 (m2) O2 Consumption: Estimated: 226.51 (ml/min) O2 Consumption indexed : Estimated:111.03 (ml/min/m) Heart Rate: 57 (bpm) Snapshots Pre Cath Intra NCS Post Cath Vital Signs Time Heart Resp SPO2 etCO2 NIBP (mmHg) Rhythm Pain Sedation Rate (ipm) (%) (mmHg) Status Level (bpm) 13:50:18 60 16 99 39 171/100(124) NSR 0 (11) 10(A) , No pain 13:54:40 65 16 100 33 165/98(150) NSR 0 (11) 10(A) , No pain 13:59:06 69 13 99 40 146/87(121) NSR 0 (11) 10(A) , No pain 14:03:22 68 14 98 31.2 156/89(109) NSR 0 (11) 10(A) , No pain 14:07:34 61 11 98 36 147/92(133) NSR 0 (11) 10(A) , No pain 14:11:50 63 11 99 32.9 155/88(118) NSR 0 (11) 9(A) , No pain 14:16:09 67 11 99 17.2 138/81(123) NSR 0 (11) 9(A) , No pain 14:20:24 82 12 97 36.7 107/81(102) NSR 0 (11) 9(A) , No pain 14:25:22 72 12 98 17.2 150/90(101) NSR 0 (11) 10(A) , No pain Medications Time Medication Route Dose Verified Delivered Reason Notes Effectiveness by by 13:49:14 0.9% NaCl I.V. 100 Javier Allison used for ml/hr Thanh Yi customer care team coach 13:49:21 Oxygen etCO2 2 Javier Allison used for Nasal l/min Thanh Yi procedure cannula RN 13:49:26 Lidocaine 2% added 20ml Javier Javier for local to vial Thanh Law MD anesthetic field 13:49:30 Heparin Flush added 2 Javier Javier used for Bag to bags Thanh Law MD procedure (1000units/500ml field NS) 14:03:11 Versed I.V. 2 mg Javier Allison for sedation Thanh Yi RN 14:03:16 Fentanyl I.V. 50 Javier Allison for sedation mcg Thanh Yi RN 14:08:02 Versed I.V. 2 mg Javier Allison for sedation Thanh Yi RN 14:08:09 Fentanyl I.V. 50 Javier Allison for sedation mcg Thanh Yi RN 14:10:42 Heparin Bolus I.V. 4000 Javier Cooper for verif ied units Thanh Yi anticoagulation with Dr. WILBERT Law 14:17:59 Nitroglycerin I.C. 200 Javier Mobleyrey for IC/IA mcg Thanh Law MD vasodilation 14:19:29 Nitroglycerin I.C. 200 Javier Javier for IC/IA mcg Thanh Law MD vasodilation Procedure Log Time Note 13:32:54 Signed procedure consent form obtained from patient. 13:32:56 Diagnostic Cath status Elective 13:32:56 Time tracking: Regular hours (M-F 7:00 - 5:00) 13:33:01 Plan of Care:Hemodynamics will remain stable., Cardiac rhythm will remain stable., Comfort level will be maintained., Respiratory function will remain adequate., Patient/ family verbilizes understanding of procedure., Procedure tolerated without complication., Recovers from procedure without complications.. 13:33:22 H&P Date Dictated: 01/16/2019 Within 30 days and on chart., H&P Addendum completed by physician on day of procedure. (MUST COMPLETE FOR ALL OUTPATIENTS). 13:33:40 Patient Height : 71 inches 13:34:16 Patient Weight : 186 lbs 13:35:45 Allison Yi RN sent for patient. Start room use. 13:35:51 Lab Result : Creatinine 1 mg/dl 13:35:51 Lab Result : BUN 13 mg/dl 13:35:51 Lab Result : Hemoglobin 18.1 g/dl 13:35:51 Lab Result : Hematocrit 50.7 % 13:36:18 Patient allergic to Other allergyCRESTOR, FELDENE, LIPITOR, MEROPENEM, PCN 13:43:11 Patient received from Pre/Post Procedure Room to CCL 1 Alert and oriented. Tansferred to table in Supine position. 13:43:13 Warm blankets applied, and kailee hugger turned on for patient comfort. 13:43:13 Correct patient and procedure confirmed by team. 13:43:15 ECG and BP/O2 sat monitors applied to patient. 13:49:06 Vital chart was started 13:49:14 0.9% NaCl 100 ml/hr I.V. was administered by Allison Kd RN; used for procedure; 13:49:21 Oxygen 2 l/min etCO2 Nasal cannula was administered by Allison Yi RN; used for procedure; 13:49:26 Lidocaine 2% 20ml vial added to field was administered by Javier Law MD; for local anesthetic; 13:49:30 Heparin Flush Bag (1000units/500ml NS) 2 bags added to field was administered by Javier Law MD; used for procedure; 13:51:24 Pre-procedure instructions explained to patient. 13:51:25 Pre-op teaching completed and patient verbalized understanding. 13:51:26 Family in patients room. 13:51:27 Patient NPO since Midnight. 13:51:30 Is patient on blood thinner?Yes 13:51:33 ACC The patient was administered the following blood thiners within the last 24 hours: ACCPlavix 13:51:43 ELIQUIS LAST DOSE 3.26 13:51:45 Patient diabetic? No. 13:51:52 Previous problem with sedation/anesthesia? No ? 13:51:54 Snore? Yes 13:51:54 Sleep apnea? Yes 13:51:55 Deviated septum? No 13:51:56 Opens mouth fully? Yes 13:51:56 Sticks out tongue? Yes 13:51:58 Airway obstruction? No ? 13:51:59 Dentures? No ? 13:52:02 Pre procedure: right dorsailis pedis pulse 1+ Palpable, but thready & weak; easily obliterated 13:52:04 Patient pain scale 0/10 ?. 13:52:09 IV patent on arrival in left hand with 0.9% NaCl at [facility]. 13:52:11 Lab results completed and on chart. 13:52:14 Right groin area was prepped with chlora-prep and draped in sterile fashion 13:52:15 Alarms reviewed by R. N. 13:52:15 Sharps counted by scrub and verified by R.N. 13:52:18 Baseline sample Acquired. 13:52:24 Rhythm: sinus bradycardia 13:52:25 Full Disclosure recording started 13:58:22 Use device set Femoral Dx 13:58:26 ACIST Syringe (97672) opened to sterile field. 13:58:27 Bag Decanter () opened to sterile field. 13:58:29 ACIST Hand Control (49265) opened to sterile field. 13:58:30 ACIST Manifold (37043) opened to sterile field. 13:58:31 Tegaderm 4 x 4 (1626W) opened to sterile field. 13:58:35 Medline Cath Pack ([id number]) opened to sterile field. 13:58:35 DIAGNOSTIC WIRE .035 260cm J wire (444548) opened to sterile field. 13:58:36 DIAGNOSTIC Multipack 5Fr catheter set (IC3419) opened to sterile field. 13:58:38 SHEATH 5FR [place] (LSB490) opened to sterile field. 14:02:07 Zero performed for pressure channel P1 14:03:02 --------ALL STOP TIME OUT------ 14:03:02 Final Timeout: patient, procedure, and site verified with staff and physician. All members of the team are in agreement. 14:03:04 Right groin site verified by team. 14:03:06 Maximum allowable Isovue 300 dose 300ml. Physician notified. (300ml for normal creatinines. For patients with creatinine of 1.7 or higher multiply weight(kg) x 5 divided by creatinine.) 14:03:10 Fire Safety Assessment: A--An alcohol-based skin anteseptic being used preoperatively., C--Open oxygen or nitrous oxide is being used., D--An ESU, laser, or fiber-optic light is being used. 14:03:11 Versed 2 mg I.V. was administered by Allison Yi RN; for sedation; 14:03:12 Physical assessment completed. ASA score P 2 - A patient with mild systemic disease as per Javier Law MD. 14:03:14 Sedation plan: IV Moderate Sedation Medication:Versed, Fentanyl 14:03:16 Procedure started. 14:03:16 Fentanyl 50 mcg I.V. was administered by Allison Yi RN; for sedation; 14:04:09 Local anesthetic to right femoral artery with Lidocaine 2% by Javier Law MD.INITIAL ACCESS ONLY 14:04:18 A 5 Fr sheath was inserted into the Right Femoral artery 14:04:29 A MULTIPACK Pigtail 5 Fr catheter was advanced over the wire and used for Procedure. 14:04:41 LV gram done using ZIMMERMAN 14:04:44 Injector settings: Ml/sec: 10, Volume: 20, 14:04:57 EF : 60 % 14:04:58 Catheter removed. 14:05:04 A MULTIPACK JL 4.0 5Fr catheter was advanced over the wire and used for Procedure. 14:06:46 LCA angiography performed. 14:06:47 Catheter removed. 14:06:51 A MULTIPACK 3DRC 5Fr catheter was advanced over the wire and used for Procedure. 14:06:58 EDWARDS to LAD angiography performed. 14:06:59 Catheter removed. 14:07:03 A DIAGNOSTIC AR2 MOD 5 Fr catheter ([id number]) was advanced over the wire and used for Procedure. 14:08:02 Versed 2 mg I.V. was administered by Allison Yi RN; for sedation; 14:08:09 Fentanyl 50 mcg I.V. was administered by Alliosn Yi RN; for sedation; 14:08:10 SVG to OM angiography performed. 14:08:13 SVG to Diag angiography performed. 14:08:14 Catheter removed. 14:08:28 SHEATH 6FR [place] (NBC161) opened to sterile field. 14:08:29 CHOICE PT Extra Support 182cm wire ([id number]) opened to sterile field. 14:08:31 INFLATOR Merit BasixCompak (VW0405) opened to sterile field. 14:08:42 [place] [employer] Eag[employer] IVUS Catheter (46635G) opened to sterile field. 14:09:06 Sheath upsized to a 6 Fr Short. 14:09:09 GUIDE 6FR AR 2.0 catheter ([id number]) opened to sterile field. 14:09:40 6 Fr AR 2 guide catheter was inserted over the wire 14:10:42 Heparin Bolus 4000 units I.V. was administered by Allison Yi RN; for anticoagulation; verified with Dr. Law 14:11:04 CHOICE ES 182 wire advanced. 14:11:06 Wire advanced across lesion. 14:11:38 IVUS catheter advanced over wire. 14:14:03 IVUS pass to SVG DIAG advanced over wire 14:14:05 IVUS catheter removed over wire. 14:14:56 Inflate balloon Inflation number: 1 A INTEGRITY RX 4.0 x 22 stent ([id number]) was prepped and advanced across the Aorta Left -> 1st Diag, then inflated to 17 ALLYSON for 0:00 (min:sec). 14:15:10 Inflation number: 2 The INTEGRITY RX 4.0 x 22 stent ([id number]) was reinflated across the Aorta Left -> 1st Diag, to 17 ALLYSON for 0:10 (min:sec). 14:15:29 Stent catheter was removed intact over wire. 14:17:28 Inflate balloon Inflation number: 3 A EUPHORA 2.0 x 15 Balloon ([id number]) was prepped and advanced across the Aorta Left -> 1st Diag, then inflated to 13 ALLYSON for 0:10 (min:sec). 14:17:43 Inflation number: 4 The EUPHORA 2.0 x 15 Balloon ([id number]) was reinflated across the Aorta Left -> 1st Diag, to 11 ALLYSON for 0:00 (min:sec). 14:17:59 Nitroglycerin IC/IA 200 mcg I.C. was administered by Javier Law MD; for vasodilation; 14:19:29 Nitroglycerin IC/IA 200 mcg I.C. was administered by Javier Law MD; for vasodilation; 14:20:31 Balloon removed over the wire. 14:21:46 Inflation number: 5 The INTEGRITY RX 4.0 x 22 stent ([id number]) was reinflated across the Aorta Left -> 1st Diag, to 17 ALLYSON for 0:10 (min:sec). 14:22:05 Balloon removed over the wire. 14:22:08 Wire removed. 14:22:08 Guide catheter removed. 14:22:25 EXOSEAL 6Fr (EX600) opened to sterile field. 14:23:34 Sheath removed intact; hemostasis achieved with Exoseal to the Right Femoral artery. 14:23:38 Procedure ended.(Physican Out) 14:23:53 Fluoroscopy time 06.00 minutes. 14:23:58 Fluoroscopy dose: 645 mGy 14:23:58 Flurop Dose total: 645 14:24:01 Contrast amount:Isovue 300 123ml. 14:24:03 Sharps counted by scrub and verified by R.N. 14:24:06 Post-op/insertion site Right Femoral artery dressed using a 4 x 4 and Tegaderm. 14:24:08 Post-procedure physical assessment completed. ASA score P 2 - A patient with mild systemic disease as per Javier Law MD. 14:24:12 Post procedure rhythm: sinus rhythm 14:24:14 Estimated blood loss: 10 ml 14:24:15 Post procedure instruction explained to patient.Patient verbalizes understanding. 14:24:16 Patient needs reinforcement of post procedure teaching. 14:24:40 Procedure type changed to Cath procedure, Diagnostic procedure, LHC, LHC w/Coronaries w/Grafts, FFR/IVUS, Intra-Coronary IVUS Initial, Sedation Charges, Moderate Sedation up to 15 minutes, PCI procedure, AMI/SVG/FLYER MAKER PTCA or Stent, SVG-BMS/VANDANA Initial 14:25:04 Procedure and supply charges have been captured, reviewed, submitted and are correct. 14:25:08 Procedure Complication : No complications 14:26:18 Vital chart was stopped 14:26:19 See physician's report for complete and final results. 14:26:21 Report given to Pre/Post Procedure Room. 14:26:23 Patient transfered to Pre/Post Procedure Room with Bed. 14:26:25 Procedure ended. 14:26:25 Full Disclosure recording stopped 14:26:28 End room use (Document Last) Intervention Summary Intervention Notes Time ActionType Lesion and Equipment Action# Pressure Duration Attributes Used 14:14:56 Inflate Aorta Left INTEGRITY RX 1 17 00:00 balloon -> 1st Diag 4.0 x 22 stent ([id number]) 14:15:10 Reinflate Aorta Left INTEGRITY RX 2 17 00:10 balloon -> 1st Diag 4.0 x 22 stent ([id number]) 14:17:28 Inflate Aorta Left EUPHORA 2.0 3 13 00:10 balloon -> 1st Diag x 15 Balloon ([id number]) 14:17:43 Reinflate Aorta Left EUPHORA 2.0 4 11 00:00 balloon -> 1st Diag x 15 Balloon ([id number]) 14:21:46 Reinflate Aorta Left INTEGRITY RX 5 17 00:10 balloon -> 1st Diag 4.0 x 22 stent ([id number]) Device Usage Item Name Manufacture Quantity Catalog Number Hospital Part Current Mini mather hospital Lot# / Charge Number Stock Stock Serial# Code [facility] 1 15385 [id number] 786422 166057 20 Syringe Medical (74995) Systems Inc Bag Decanter Microtek 1 2001S 162460 96892 850844 5 (2001S) Medical Inc. ACIST Hand Acist 1 59546 105084 806375 339142 5 Control Medical (61991) Systems Inc ACIST Acist 1 44315 895782 711346 457449 5 Manifold Medical (97176) Systems Inc Tegaderm 4 x 3M 1 1626W 016522 781650 727930 5 4 (1626W) Medline Cath Medline 1 [id number] 742375 90208 484709 5 Pack ([id number]) DIAGNOSTIC [facility] 1 853899 445776 166452 260962 30 WIRE .035 260cm J wire (939026) DIAGNOSTIC Cardinal 1 HX0173 077678 95220 567523 30 Multipack Health 5Fr catheter set (EO9590) SHEATH 5FR Terumo 1 KAG938 261698 462666 829228 5 [place] (OUJ585) MULTIPACK Cardinal 1 555885 5 Pigtail 5 Fr Health catheter MULTIPACK JL Cardinal 1 416193 5 4.0 5Fr Health catheter MULTIPACK Cardinal 1 962586 5 3DRC 5Fr Health catheter DIAGNOSTIC Cardinal 1 [id number] 542142 580675 560062 20 AR2 MOD 5 Fr Health catheter (357088P) SHEATH 6FR Terumo 1 BCR651 324312 715783 557157 40 [place] (RZF368) CHOICE PT [place] 1 [id number] 558527 883230 047209 5 Extra Scientific Support 182cm wire ([id number]) INFLATOR Merit 1 GJ8380 343741 049355 088155 15 [facility] [place] Medical BasixCompak (VB7726) [place] 1 61278N 285149 242748 150501 8 Mutual Eagleye IVUS Catheter (95434S) GUIDE 6FR AR Medtronic 1 [id number] 775769 22542 331568 1 2.0 catheter (LL1RW15) INTEGRITY RX Medtronic 1 [id number] 727719 614707 733248 5 [id number] 4.0 x 22 stent ([id number]) EUPHORA 2.0 Medtronic 1 [id number] 221909 367897 606323 5 [id number] x 15 Balloon ([id number]) EXOSEAL 6Fr Cardinal 1 EX600 789765 747042 885725 10 (EX600) Health Signature Audit [place] Stage Time Signature Unsigned Intra-Procedure 01/19/2019 Riya Merchant 2:34:36 PM RT(R) Signatures Monitor : Riya Merchant Signature : RT Date : Time : [id number] [place] [address]
[~2019-01-19 10:05] MED LIST changes: +TERBINAFINE TAB 250
[2019-01-19 10:44] VITALS: BP 156/86; Ht 180.3 cm; Wt 80.9 kg
[2019-01-19 10:45] LABS: BASOPHILS 0.5 % (0-2); EOSINOPHILS 3.8 % (0-7); HEMATOCRIT 50.7 % (42.0-54.0); HEMOGLOBIN 18.1 g/dL (13.5-17.5); IMMATURE GRANULOCYTES 0.5 % (0-5); LYMPHOCYTES 26.8 % (15-50); MCH 31.5 pg (26.0-34.0); MCHC 35.7 g/dL (31.0-37.0); MCV 88.3 fL (80.0-100.0); MEAN PLATELET VOLUME 9.5 fL (7.4-10.4); MONOCYTES 8.2 % (2-11); NEUTROPHILS 60.2 % (40-80); PLATELET COUNT 199 10x3/uL (130-400); RBC 5.74 10x6/uL (4.20-6.10); RDW 13.1 % (11.5-14.5); WBC 5.9 10x3/uL (4.8-10.8)
[2019-01-19 11:00] LABS: CALC OSMOLALITY 277 mosm/kg (275-300); CARBON DIOXIDE 31.1 mmol/L (21.0-32.0); CHLORIDE - SERUM 102 mmol/L (98-107); GLUCOSE 93 mg/dL (74-106); POTASSIUM - SERUM 3.8 mmol/L (3.5-5.1); SODIUM 139 mmol/L (136-145); UREA NITROGEN 13 mg/dL (7-18); eGFR NON AFRICAN AMERICAN 79 mL/min (90-120)
--- NOTE | 2019-01-19 14:55 | NUR ---
2L NC, NO RESP DISTRESS. RIGHT GROIN 6F EXOSEAL CDI, NO BLEEDING OR HEMATOMA NOTED. NO C/O PAIN OR NAUSEA. VSS. FAMILY AT BEDSIDE, CALL LIGHT WITHIN REACH.
--- NOTE | 2019-01-19 15:03 | OP ---
PATIENT NAME: LUIGI BORJA MEDICAL RECORD: [id number] :48 LOCATION:D.CAT ADMISSION DATE: SURGEON: LEIGHTON WILLIS MD DATE OF OPERATION: 01/19/2019 PROCEDURES: 1. PTCA stent vein graft to the LAD diagonal. 2. PTCA diagonal through patent vein graft. 3. Intravascular ultrasound. 4. Vein graft angiography. 5. EDWARDS angiography. 6. Left heart catheterization. 7. Left ventriculogram. INDICATION: Angina and coronary artery disease. PROCEDURE IN DETAIL: After informed consent was obtained and after a detailed description of the risks, benefits as well as alternative therapies, the patient elected to proceed with angiogram and angioplasty. The right femoral area was prepped and draped in normal sterile fashion. Right femoral artery was cannulated via modified Seldinger technique with placement of 6-[place]ese sheath. All catheters exchanged through this sheath. FINDINGS: The left ventriculogram was performed in standard 30-degree ZIMMERMAN view reveals preserved cardiac wall motion, ejection fraction 60%. SELECTIVE CORONARY ANGIOGRAPHY: 1. Left main is with no significant angiographic disease. 2. There is a non-grafted LAD diagonal that has previously placed stents that are widely patent with no significant restenosis. No disease elsewise throughout the diagonal. 3. The left anterior descending is then totally occluded. 4. Left circumflex is totally occluded. 5. The right coronary artery is totally occluded. 6. Vein graft to the right coronary artery is totally occluded. 7. EDWARDS to the LAD is widely patent. Distal LAD is widely patent. 8. Vein graft to the obtuse marginal is widely patent. The distal obtuse marginal is widely patent. 9. Vein graft to the second diagonal is patent; however, intravascular ultrasound reveals there is greater than 70% stenosis in the mid vessel with what appears to be thrombus. After this, there is a stent in the diagonal itself that has greater than 70% in-stent restenosis. PTCA OF THE DIAGONAL THROUGH THE PATENT VEIN GRAFT: The balloon used was a 2.0 balloon taken to 13 atmospheres. PTCA STENT OF THE VEIN GRAFT TO THE DIAGONAL: The vein graft itself was addressed with a 4.0 x 22 Integrity stent. Result was 0% residual stenosis. OVERALL IMPRESSION: Successful percutaneous transluminal coronary angioplasty stent of the vein graft to the left anterior descending diagonal going from greater than 70% initial stenosis with thrombus to 0% residual stenosis. TRANSINT:[id number] Voice Confirmation ID: [id number] DOCUMENT ID: [id number] OPERATIVE REPORT [id number] LUIGI BORJA JEFFREY MD at 1503 CC: [id number] DICTATION DATE: 01/19/19 143 SPECIAL POPULATION PARAPROFESSIONAL: 01/19/19 1444 [facility] [address] [place] [id number]
--- NOTE | 2019-01-19 15:25 | NUR ---
RESTING QUIETLY WITH EYES CLOSED. RIGHT GROIN 6F EXOSEAL CDI, NO BLEEDING OR HEMATOMA NOTED. DENIES ANY NEEDS OR C/O. VSS. WILL CONTINUE TO MONITOR.
--- NOTE | 2019-01-19 15:40 | NUR ---
CONTINUES TO REST COMFORTABLY WITH NO C/O. RIGHT GROIN 6F EXOSEAL CDI, NO BLEEDING OR HEMATOMA NOTED. NO NEEDS VOICED AT THIS TIME. 2L NC WITH NO RESP DISTRESS. VSS. CALL LIGHT WITHIN REACH.
--- NOTE | 2019-01-19 16:41 | NUR ---
1615 REPORT AND CARE FROM DEREK LANE RN. PT SLEEPING, AWAKENS EASILY TO VERBAL STIMULI. DENIES ANY C/O. DRESSING CDI TO RIGHT GROIN, PEDAL PULSES PALPABLE. VSS. RESP WITH EASE, AT BEDSIDE.
--- NOTE | 2019-01-19 16:43 | NUR ---
PT DENIES ANY C/O. DRESSING CDI RIGHT GROIN, PEDAL PULSES PALPABLE. VSS. HOB IS FLAT, CALL LIGHT IN REACH.
--- NOTE | 2019-01-19 17:11 | NUR ---
PT ALERT, IS VISITING WITH FAMILY IN THE ROOM. HOB FLAT. VSS. DRESSING CDI TO RIGHT GROIN, PEDAL PULSES PALPABLE. RESP WITH EASE ON ROOM AIR. PT DENIES NEEDS AT THIS TIME.
--- NOTE | 2019-01-19 17:55 | NUR ---
HOB ELEVTED 30 DEGREES, SANDWICH AND PO FLUIDS SERVED. DRESSING RIGHT GROIN IS CDI. VSS. PT DENIES ANY C/O AT THIS TIME.
--- NOTE | 2019-01-19 18:25 | NUR ---
181 DRESSING CDI, PEDAL PULSES PALPABLE. HOB FULLY ELEVATED. PT VANDANA SANDWICH WITH NO C/O NAUSEA. VSS.
--- NOTE | 2019-01-19 18:48 | NUR ---
183 DRESSING REMAINS CDI TO RIGHT GROIN. IV DC'D WTIH CATH INTACT. PT DRESSING FOR DC WITH ASSIST. 1839 PT HAS DRESSED FOR DC TO HOME. HAS AMBULTED TO THE BATHROOM AND VOIDED QS. DENIES ANY C/O. DC INSTRUCTIONS REVIEWED WITH PT WHO VERBALIZES UNDERSTANDING. PT ESCORTED TO PRIVATE AUTO VIA WC BY NURSE WITH DRIVING HIM HOME. PT HAS ALL PERSONAL BELONGINGS AND DC INSTRUCTIONS.
== END 2019-01-19 18:40 | disposition home or self-care (01) ==
LOC: D.CATH 10:05
PROVIDERS: ATTEND Internal Medicine Interventional Cardiology
DX: I25.119 Atherosclerotic heart disease of native coronary artery with unspecified angina pectoris (principal); Z01.812 Encounter for preprocedural laboratory examination

== ENCOUNTER 2019-01-24 20:55 | Emergency (ER) | payer MEDICARE, OTHER ==
[~2019-01-24] VITALS: Ht 180.3 cm; Wt 81.8 kg
[2019-01-24 21:02] VITALS: Ht 180.3 cm; Wt 81.8 kg
[2019-01-24] MEDS ORDERED: ELIQUIS5 MG PO (21:03)
[2019-01-24 22:17] LABS: BASOPHILS 0.8 % (0-2); EOSINOPHILS 4.4 % (0-7); HEMATOCRIT 46.4 % (42.0-54.0); HEMOGLOBIN 16.3 g/dL (13.5-17.5); IMMATURE GRANULOCYTES 0.3 % (0-5); LYMPHOCYTES 23.8 % (15-50); MCH 31.2 pg (26.0-34.0); MCHC 35.1 g/dL (31.0-37.0); MCV 88.9 fL (80.0-100.0); MEAN PLATELET VOLUME 9.2 fL (7.4-10.4); MONOCYTES 7.2 % (2-11); NEUTROPHILS 63.5 % (40-80); PLATELET COUNT 202 10x3/uL (130-400); RBC 5.22 10x6/uL (4.20-6.10); WBC 6.5 10x3/uL (4.8-10.8)
[2019-01-24 22:22] LABS: APTT 37.9 SECONDS (22.8-39.4); INR 1.15 (0.85-1.17); PROTIME 14.2 SECONDS (11.6-15.0)
[2019-01-24 22:30] LABS: ALBUMIN 3.3 g/dL (3.4-5.0); ALKALINE PHOSPHATASE 84 U/L (46-116); ALT (SGPT) 16 U/L (10-68); BILIRUBIN - TOTAL 0.28 mg/dL (0.2-1.3); CALC OSMOLALITY 279 mosm/kg (275-300); CALCIUM 8.5 mg/dL (8.5-10.1); CHLORIDE - SERUM 104 mmol/L (98-107); CREATININE - SERUM 1.3 mg/dL (0.6-1.3); GLUCOSE 122 mg/dL (74-106); POTASSIUM - SERUM 3.8 mmol/L (3.5-5.1); PROTEIN - SERUM 6.6 g/dL (6.4-8.2); SODIUM 140 mmol/L (136-145); UREA NITROGEN 13 mg/dL (7-18); eGFR NON AFRICAN AMERICAN 58 mL/min (90-120)
[2019-01-24] MEDS ORDERED: ISOSORBIDE MONO30 M1 PO (22:41)
[2019-01-24] MEDS ORDERED: NITROSTAT0.4 MG SL (22:42)
[2019-01-24 22:44] LABS: CKMB 0.7 U/L (0.0-3.6); CREATINE KINASE 54 UL (21-232); MAGNESIUM - SERUM 1.9 mg/dL (1.8-2.4); TROPONIN-I 0.037 ng/mL (0.000-0.060)
[2019-01-24 23:47] VITALS: BP 168/87
== END 2019-01-24 23:56 | disposition home or self-care (01) ==
LOC: D.ER 20:55
PROVIDERS: Emergency Medicine
DX: I20.9 Angina pectoris, unspecified (principal)

== ENCOUNTER 2019-05-25 09:38 | Outpatient (CLI) | payer MEDICARE, OTHER ==
[~2019-05-25] VITALS: Ht 180.3 cm; Wt 87.7 kg
--- NOTE | ~2019-05-25 | HEMODYNAMI ---
PATIENT:LUIGI BORJA MEDICAL RECORD: [id number] : 48 LOCATION:[facility] ADMISSION DATE: 05/25/19 Generatedon:05/25/201914:06 Patient name: LUIGI BORJA Patient #: [id number] : 1950 Date of study: 05/25/2019 Page: Of Hemodynamic Procedure Report Patient Data Patient Demographics Procedure consent was obtained First Name: LUIGI Gender: Male Last Name: JONH : 1950 Middle Initial: M Age: 69 year(s) Patient #: [id number] Race: SSN: [id number] Additional ID: [id number] Contact details [address]: [address] [place] [address] State: [place] City: [place] Zip code: [address] Past Medical History Allergies Allergen Reaction Date Comments Reported Penicillins 02/17/2015 Other allergy 02/17/2015 Feldene Lipitor 02/17/2015 Other allergy 02/17/2015 Meropenem Other allergy 02/04/2017 PCN, Feldene, Statins,Meropenen Other allergy 01/31/2018 Feldene, PCN, Lipitor, Hydrocodone, Vicodin, Meropenen, Effient, Crestor. Other allergy 10/13/2018 CRESTOR, FELDENE, LIPITOR, MEROPENEM, PCN Other allergy 01/19/2019 CRESTOR, FELDENE, LIPITOR, MEROPENEM, PCN Other allergy 05/25/2019 CRESTOR, FELDENE, LIPITOR, MEROPENEM, PCN Admission Admission Data Admission Date: 05/25/2019 Admission Time: 9:38 Admit Source: Other Insurance Payor: Private health insurance, Medicare [facility] #: [id number] Height (in.): 71 BSA: 2.07 (m2) Height (cm.): 180.34 BMI: 26.75 (kg/m2) Weight (lbs.): 191.8 Weight (kg.): 87 Current Diagnosis Diagnosis Description Unstable angina Lab Results Lab Result Date: 05/25/2019 Lab Result Time: 10:15 Biochemistry Name Units Result Min Max BUN mg/dl 17 --(---*)-- 7 18 Creatinine mg/dl 1.1 --(--*-)-- 0.6 1.3 CBC Name Units Result Min Max Hematocrit % 49.2 --(--*-)-- 42 54 Hemoglobin g/dl 17.7 --(----)*- 13.5 17.5 Procedure Procedure Types Cath Procedure Diagnostic Procedure LHC LH w/Coronaries FFR/IVUS FFR Initial Sedation Charges Moderate Sedation up to 30 minutes PCI Procedure Coronary Stent Coronary Stent Initial Procedure Description Procedure Date Procedure Date: 05/25/2019 Procedure Start Time: 13:40 Procedure End Time: 14:05 Procedure Staff Name Function Javier Law MD Performing Physician Tommie Pierre RT Monitor Maciej Gurrola RT Scrub Luisa Warner RT Scrub Jon Olivares RN Nurse Indication Paroxysmal atrial fibrillation CAD Previous stroke Shortness of breath Shortness of breath w/exertion Procedure Data Cath Procedure Fluoroscopy Diagnostic fluoroscopy Total fluoroscopy Time: 8.3 time: 8.3 min min Diagnostic fluoroscopy Total fluoroscopy dose: dose: 1404 mGy 1404 mGy Contrast Material Contrast Material Type Amount (ml) Isovue 300 141 Entry Location Entry Primary Successful Side Size Upsize Upsize Entry Closure Succes sful Closure Location (Fr) 1 (Fr) 2 (Fr) Remarks Device Remarks Femoral Right 5 Fr 6 Fr Exoseal artery Short Estimated blood loss: 10 ml Diagnostic catheters Device Type Used For End Catheter Placement MULTIPACK Pigtail 5 Fr Procedure catheter MULTIPACK JL 4.0 5Fr Procedure catheter MULTIPACK 3DRC 5Fr Procedure catheter DIAGNOSTIC AR2 MOD 5 Fr Procedure catheter ([id number]) DIAGNOSTIC LCB 5Fr Procedure catheter ([id number]) Procedure Complications No complications Procedure Medications Medication Administration Route Dosage 0.9% NaCl I.V. 100 ml/hr Oxygen etCO2 Nasal cannula 2 l/min Heparin Flush Bag added to field 2 bags (1000units/500ml NS) Lidocaine 2% added to field 20 Versed I.V. 2 mg Fentanyl I.V. 100 mcg Versed I.V. 1 mg Versed I.V. 1 mg Heparin Bolus I.V. 4000 units Hemodynamics Rest BSA: 2.07 (m2) HGB: 17.7 (g/dl) O2 Consumption: Estimated: 233.81 (ml/min) O2 Co nsumption indexed: Estimated:112.95 (ml/min/m) Heart Rate: 63 (bpm) Pressure Samples Time Site Value (mmHg) Purpose Heart Use Rate(bpm) 13:41 LV 65/14,18 Snapshot 63 Snapshots Pre Cath Intra NCS Post Cath Vital Signs Time Heart Resp SPO2 etCO2 NIBP (mmHg) Rhythm Pain Sedation Rate (ipm) (%) (mmHg) Status Level (bpm) 13:21:13 65 19 97 0 151/93(132) NSR 0 (11) 10(A) , No pain 13:25:25 62 19 100 0 156/90(115) NSR 0 (11) 10(A) , No pain 13:29:35 64 11 97 0 137/87(121) NSR 0 (11) 10(A) , No pain 13:34:46 63 15 96 0 116/78(96) NSR 0 (11) 10(A) , No pain 13:38:48 64 19 95 36.8 132/84(101) NSR 0 (11) 10(A) , No pain 13:42:58 67 14 91 0 124/78(92) NSR 0 (11) 10(A) , No pain 13:47:05 71 11 92 0 122/74(104) NSR 0 (11) 9(A) , No pain 13:51:11 70 11 92 39 134/81(112) NSR 0 (11) 9(A) , No pain 13:55:17 72 12 95 25.5 114/70(102) NSR 0 (11) 9(A) , No pain 14:00:25 71 11 93 36.7 132/75(105) NSR 0 (11) 9(A) , No pain 14:04:32 76 92 28.5 131/85(112) NSR 0 (11) 9(A) , No pain Medications Time Medication Route Dose Verified Delivered Reason Notes Effectiveness by by 13:25:19 0.9% NaCl I.V. 100 Jon Jon Per physician ml/hr Elise Olivares RN RN 13:25:28 Oxygen etCO2 2 Jon Jon for low 02 sats Nasal l/min Lorigan Lorigan cannula RN RN 13:25:39 Heparin Flush added 2 Jon Jon used for Bag to bags Elise Olivares procedure (1000units/500ml field RN RN NS) 13:25:48 Lidocaine 2% added 20ml Jon Jon for local to vial Jennyhaley Olivares anesthetic RN RN 13:25:57 Versed I.V. 2 mg Jon Jon for sedation Elise Olivares RN RN 13:26:05 Fentanyl I.V. 100 Jon Jon for sedation mcg Elise Olivares RN RN 13:27:47 Versed I.V. 1 mg Jon Jon for sedation Elise Olivares RN RN 13:38:59 Versed I.V. 1 mg Jon Jon for sedation Elise Olivares RN RN 13:58:45 Heparin Bolus I.V. 4000 Jon Jon for units Elise Olivares anticoagulation RN tin stacker Log Time Note 13:05:47 Informed consent obtained and on chart 13:07:34 ACCPatient has been prescribed/administered the following anti-anginal medication within the last 2 weeks: Beta Allison, Long-Acting Nitrates 13:07:38 Procedure Status Elective Heart Cath (OP). 13:07:40 Admit Source: Other 13:08:20 ACC Patient presents with Unstable Angina CCS Anginal Class 4--Inability to carry out any physical activity w/o angina. Angina may occur at rest. 13:08:23 Jon Olivares RN sent for patient. Start room use. 13:13:07 Patient Weight : 191.8 lbs 13:13:11 Patient Height : 71 inches 13:13:34 Insurance Payor : Private health insurance, Medicare 13:14:04 Current Diagnosis : Unstable angina 13:14:56 Lab Result : Hemoglobin 17.7 g/dl 13:14:56 Lab Result : Hematocrit 49.2 % 13:14:56 Lab Result : BUN 17 mg/dl 13:14:56 Lab Result : Creatinine 1.1 mg/dl 13:15:20 Indication : Paroxysmal atrial fibrillation 13:15:28 Indication : CAD 13:15:39 Indication : Previous stroke 13:16:00 Indication : Shortness of breath 13:16:03 Indication : Shortness of breath w/exertion 13:16:21 Diagnostic Cath Status : Elective 13:16:25 Time tracking: Regular hours (M-F 7:00 - 5:00) 13:16:28 Plan of Care:Hemodynamics will remain stable., Cardiac rhythm will remain stable., Comfort level will be maintained., Respiratory function will remain adequate., Patient/ family verbilizes understanding of procedure., Procedure tolerated without complication., Recovers from procedure without complications.. 13:16:33 Patient received from Pre/Post Procedure Room to [facility] 2 Alert and oriented. Tansferred to table in Supine position. 13:16:34 Warm blankets applied, and kailee hugger turned on for patient comfort. 13:16:35 Correct patient and procedure confirmed by team. 13:16:35 ECG and BP/O2 sat monitors applied to patient. 13:16:36 Pre-procedure instructions explained to patient. 13:16:38 Pre-op teaching completed and patient verbalized understanding. 13:16:48 H&P Date Dictated: 05/24/2019 Emergent; H&P N/A, Within 30 days and on chart.. 13:16:56 Family in waiting room. 13:17:01 Patient NPO since Midnight. 13:20:09 Baseline sample Acquired. 13:20:09 Vital chart was started 13:20:12 Rhythm: sinus rhythm 13:20:14 Full Disclosure recording started 13:20:46 Patient allergic to Other allergyCRESTOR, FELDENE, LIPITOR, MEROPENEM, PCN 13:20:47 Is the patient allergic to Iodine/contrast media? No. 13:21:03 Is patient on blood thinner?Yes 13:21:05 ACC The patient was administered the following blood thiners within the last 24 hours: ACCAspirin, ACCPlavix 13:21:09 ACC The patient was administered the following blood thiners within the last 24 hours: Eliquis 13:21:11 Patient diabetic? No. 13:21:15 Previous problem with sedation/anesthesia? No ? 13:21:16 Snore? Yes 13:21:16 Sleep apnea? Yes 13:21:17 Deviated septum? No 13:21:18 Opens mouth fully? Yes 13:21:19 Sticks out tongue? Yes 13:21:20 Airway obstruction? No ? 13:21:22 Dentures? No ? 13:21:29 Pre procedure: right dorsailis pedis pulse 1+ Palpable, but thready & weak; easily obliterated 13:21:31 Patient pain scale 0/10 ?. 13:21:44 IV patent on arrival in left forearm with 0.9% NaCl at [facility]. 13:21:45 Lab results completed and on chart. 13:21:48 Right groin area was prepped with chlora-prep and draped in sterile fashion 13:21:49 Alarms reviewed by R. N. 13:21:49 Sharps counted by scrub and verified by R.N. 13:21:52 Use device set Femoral Dx 13:21:53 ACIST Syringe (78926) opened to sterile field. 13:21:53 Bag Decanter (2002S) opened to sterile field. 13:21:53 Medline Cath Pack ([id number]) opened to sterile field. 13:21:54 ACIST Hand Control (60350) opened to sterile field. 13:21:55 ACIST Manifold (05615) opened to sterile field. 13:21:55 Tegaderm 4 x 4 (1626W) opened to sterile field. 13:21:56 DIAGNOSTIC Multipack 5Fr catheter set (TD0962) opened to sterile field. 13:21:58 SHEATH 5FR [place] (ZUJ132) opened to sterile field. 13:21:58 EMERALD Guide Wire (165-365) opened to sterile field. 13:22:04 Physician arrived 13:22:04 --------ALL STOP TIME OUT------ 13:22:05 Final Timeout: patient, procedure, and site verified with staff and physician. All members of the team are in agreement. 13:22:06 Right groin site verified by team. 13:22:09 Fire Safety Assessment: A--An alcohol-based skin anteseptic being used preoperatively., C--Open oxygen or nitrous oxide is being used., D--An ESU, laser, or fiber-optic light is being used. 13:22:12 Physical assessment completed. ASA score P 2 - A patient with mild systemic disease as per Javier Law MD. 13:22:19 2) 60-89 Mildly reduced kidney function, and other findings (as for stage 1) point to kidney disease. 13:22:25 Maximum allowable contrast dose (3.7 X eGFR X 0.75)242 ml. 13:22:28 Sedation plan: IV Moderate Sedation Medication:Versed, Fentanyl 13:25:19 0.9% NaCl 100 ml/hr I.V. was administered by Jon Olivares RN; Per physician; 13:25:28 Oxygen 2 l/min etCO2 Nasal cannula was administered by Jon Olivares RN; for low 02 sats; 13:25:39 Heparin Flush Bag (1000units/500ml NS) 2 bags added to field was administered by Jon Olivares RN; used for procedure; 13:25:48 Lidocaine 2% 20ml vial added to field was administered by Jon Olivares RN; for local anesthetic; 13:25:57 Versed 2 mg I.V. was administered by Jon Olivares RN; for sedation; 13:26:05 Fentanyl 100 mcg I.V. was administered by Jon Olivares RN; for sedation; 13:27:47 Versed 1 mg I.V. was administered by Jon Olivares RN; for sedation; 13:37:31 Zero performed for pressure channel P1 13:38:59 Versed 1 mg I.V. was administered by Jon Olivares RN; for sedation; 13:40:03 Procedure started. 13:40:06 Local anesthetic to right femoral artery with Lidocaine 2% by Javier Law MD.INITIAL ACCESS ONLY 13:40:16 A 5 Fr sheath was inserted into the Right Femoral artery 13:40:23 A MULTIPACK Pigtail 5 Fr catheter was advanced over the wire and used for Procedure. 13:40:56 LV gram done using ZIMMERMAN 13:40:58 Injector settings: Ml/sec: 10, Volume: 20, 13:41:00 LV hemodynamics recorded. 13:41:32 EF : 55 % 13:41:33 Catheter exchanged over wire. 13:41:37 A MULTIPACK JL 4.0 5Fr catheter was advanced over the wire and used for Procedure. 13:41:44 ACCDominant side:Left 13:41:47 LCA angiography performed. 13:42:54 SHEATH 6FR [place] (UWC415) opened to sterile field. 13:42:55 INFLATOR Merit BasixCompak (IN2562) opened to sterile field. 13:43:34 Anytime DDrata Plus pressure wire (82753X) opened to sterile field. 13:43:39 Catheter exchanged over wire. 13:43:43 A MULTIPACK 3DRC 5Fr catheter was advanced over the wire and used for Procedure. 13:43:47 EDWARDS to LAD angiography performed. 13:43:55 RCA angiography performed. 13:44:01 SVG to RCA occluded. 13:44:51 SVG to Diag occluded. 13:45:07 GUIDE 6FR XBLAD 4.0 catheter ([id number]) opened to sterile field. 13:45:13 Catheter removed. 13:45:18 Sheath upsized to a 6 Fr Short. 13:45:32 A DIAGNOSTIC AR2 MOD 5 Fr catheter ([id number]) was advanced over the wire and used for Procedure. 13:47:15 Catheter exchanged over wire. 13:48:21 A DIAGNOSTIC LCB 5Fr catheter (216223G) was advanced over the wire and used for Procedure. 13:48:32 Catheter exchanged over wire. 13:48:38 GUIDE 6FR AR 2.0 catheter ([id number]) opened to sterile field. 13:48:46 6 Fr AR 2 guide catheter was inserted over the wire 13:49:18 CHOICE PT Extra Support 182cm wire ([id number]) opened to sterile field. 13:51:11 CHOICE PT ES wire advanced. 13:51:27 Wire advanced across lesion. 13:53:46 Wire removed. 13:53:46 Guide catheter removed. 13:53:58 6 Fr XBLAD 4 guide catheter was inserted over the wire 13:57:04 FFR/IFR wire advanced. 13:57:39 Wire advanced across lesion. 13:58:09 Diag1 lesion measured at 0.87 with IFR 13:58:45 Heparin Bolus 4000 units I.V. was administered by Jon Olivares RN; for anticoagulation; 13:59:50 Place stent Inflation Number: 1 A JORI RX 3.0 x 18 stent ([id number]) was prepped and advanced across the 1st Diag . The stent was deployed at 21 [place] for 0:10 (min:sec) . 13:59:59 Pre PCI Site: [place] Diag1 has 75% stenosis. 14:00:03 Post PCI Site: [place] Diag1 has 0% stenosis. 14:00:16 ACC Pre-intervention CHRISTIE Flow is 3. 14:00:18 ACC Post-intervention CHRISTIE Flow is 3. 14:00:23 Stent catheter was removed intact over wire. 14:00:24 Wire removed. 14:00:25 Guide catheter removed. 14:00:35 EXOSEAL 6Fr (EX600) opened to sterile field. 14:00:42 Sheath removed intact; hemostasis achieved with Exoseal to the Right Femoral artery. 14:00:44 Procedure ended.(Physican Out) 14:03:33 Fluoroscopy time 08.30 minutes. 14:03:41 Fluoroscopy dose: 1404 mGy 14:03:41 Flurop Dose total: 1404 14:03:46 Dose Area Product 81550 mGy/cm. 14:03:49 Contrast amount:Isovue 300 141ml. 14:03:51 Maximum allowable dose exceeded? No. 14:03:52 Sharps counted by scrub and verified by R.N. 14:03:53 Insertion/operative site no bleeding no hematoma. 14:03:55 Post-op/insertion site Right Femoral artery dressed using a 4 x 4 and Tegaderm. 14:03:59 Post right femoral artery:stable, soft, clean and dry 14:04:01 Post Procedure Pulses reassessed and unchanged 14:04:04 Post-procedure physical assessment completed. ASA score P 2 - A patient with mild systemic disease as per Javier Law MD. 14:04:07 Post procedure rhythm: unchanged. 14:04:09 Estimated blood loss: 10 ml 14:04:11 Post procedure instruction explained to patient.Patient verbalizes understanding. 14:04:11 Patient needs reinforcement of post procedure teaching. 14:04:32 Procedure type changed to Cath procedure, Diagnostic procedure, LHC, LHC w/Coronaries, FFR/IVUS, FFR Initial, Sedation Charges, Moderate Sedation up to 30 minutes, PCI procedure, Coronary Stent, Coronary Stent Initial 14:04:54 Procedure and supply charges have been captured, reviewed, submitted and are correct. 14:04:56 Procedure Complication : No complications 14:04:58 Vital chart was stopped 14:04:58 See physician's report for complete and final results. 14:05:05 Report given to Pre/Post Procedure Room. 14:05:07 Patient transfered to Pre/Post Procedure Room with Stretcher. 14:05:09 Procedure ended. 14:05:09 Full Disclosure recording stopped 14:05:18 ACC-PCI Only Patient was given prescriptions, or instructed by Javier Law MD to start/continue the following medications upon discharge: Aspirin, Plavix 14:05:19 End room use (Document Last) Intervention Summary Intervention Notes Time ActionType Lesion and Equipment Used Action# Pressure Duration Attributes 13:59:50 Place stent 1st Diag JORI RX 3.0 x 1 21 00:10 18 stent ([id number]) Device Usage Item Name Manufacture Quantity Catalog Number Hospital Part Current Minimal Lot# / Charge Number Stock Stock Serial# Code ACIST Syringe Acist 1 75631 322738 371175 254827 20 (23339) Medical Systems Inc Bag Decanter Microtek 1 2001S 788256 17080 286772 5 (2001S) Medical Inc. Medline Cath Medline 1 [id number] 374939 50606 348847 5 Pack ([id number]) ACIST Hand Acist 1 71468 679416 083587 892400 5 Control Medical (82266) Systems Inc ACIST Manifold Acist 1 85537 260902 704150 917832 5 (89526) Medical Systems Inc Tegaderm 4 x 4 3M 1 1626W 421448 034995 887019 5 (1626W) DIAGNOSTIC Cardinal 1 HO7656 065987 82675 452873 30 Multipack 5Fr Health catheter set (RC4242) SHEATH 5FR Terumo 1 CCM900 454005 605237 236390 5 [place] (KLD334) EMERALD Guide Cardinal 1 502-455 107910 772385 584723 5 Wire (502-455) Health MULTIPACK Cardinal 1 256030 5 Pigtail 5 Fr Health catheter MULTIPACK JL Cardinal 1 584926 5 4.0 5Fr Health catheter SHEATH 6FR Terumo 1 HIV379 011389 927596 618661 40 [place] (SFN746) INFLATOR Merit Merit 1 BT7304 926215 337172 960658 15 Field [facility] (NT2436) Everest Everest 1 50756M 793129 497275434 566274 5 [place] Plus pressure wire (86486R) MULTIPACK 3DRC Cardinal 1 057174 5 5Fr catheter Health GUIDE 6FR Cardinal 1 73710274 161198 569630 567401 3 XBLAD 4.0 Health catheter (36666675) DIAGNOSTIC AR2 Cardinal 1 [id number] 019223 880685 116283 20 MOD 5 Fr Health catheter (245838G) DIAGNOSTIC LCB Cardinal 1 894850M 546855 799137 926444 5 5Fr catheter Health (044541F) GUIDE 6FR AR Medtronic 1 [id number] 156137 92042 744435 1 2.0 catheter (VV5TO94) CHOICE PT [place] 1 [id number] 825973 656854 763760 5 Extra Support Scientific 182cm wire ([id number]) JORI RX 3.0 x Medtronic 1 [id number] 576486 3569930 967668 5 [id number] 18 stent ([id number]) EXOSEAL 6Fr Cardinal 1 EX600 647926 484817 643098 10 (EX600) Health Signature Audit Tyrone Stage Time Signature Unsigned Intra-Procedure 05/25/2019 Tommie Pierre 2:05:56 PM RT(R) Signatures Performing Physician : Signature : Javier Law MD Date : Time : Monitor : Tommie Pierre RT Signature : Date : Time : Nurse : Jon Olivares Signature : RN Date : Time : [facility] [address] [place] [address]
[~2019-05-25 09:38] MED LIST changes: +NITROSTAT0.4 MG SL
[2019-05-25] MEDS ORDERED: NITRO-DUR0.1 MG TRANSDERM (09:50)
[2019-05-25 10:02] VITALS: BP 159/81; Ht 180.3 cm; Wt 87.7 kg
[2019-05-25 10:22] LABS: BASOPHILS 0.5 % (0-2); HEMATOCRIT 49.2 % (42.0-54.0); HEMOGLOBIN 17.7 g/dL (13.5-17.5); IMMATURE GRANULOCYTES 0.6 % (0-5); LYMPHOCYTES 26.3 % (15-50); MCH 31.3 pg (26.0-34.0); MCV 87.1 fL (80.0-100.0); MEAN PLATELET VOLUME 9.2 fL (7.4-10.4); MONOCYTES 7.3 % (2-11); NEUTROPHILS 61.3 % (40-80); PLATELET COUNT 199 10x3/uL (130-400); RBC 5.65 10x6/uL (4.20-6.10); RDW 13.2 % (11.5-14.5); WBC 6.6 10x3/uL (4.8-10.8)
[2019-05-25 10:33] LABS: ANION GAP 11.6 mmol/L (8-16); CARBON DIOXIDE 28.6 mmol/L (21.0-32.0); CREATININE - SERUM 1.1 mg/dL (0.6-1.3); POTASSIUM - SERUM 4.2 mmol/L (3.5-5.1)
[2019-05-25 10:35] LABS: CHOL - HDL RATIO 4.9 ratio (2.3-4.9); LDL-HDL RATIO 3.3 ratio (1.5-3.5)
[2019-05-25] MEDS ORDERED: PLAVIX75 MG PO (14:31)
--- NOTE | 2019-05-25 14:38 | NUR ---
PT ALERT, DENIES ANY C/O. DRESSING CDI TO RIGHT GROIN, AREA IS SOFT AND NONTENDER. PEDAL PULSES PALPABLE. NSR, DENIES ANY C/O CHEST PAIN. HOB IS FLAT, BED LOCKED AND LOW, SIDERAILS UP X2, AT BEDSIDE. CALL LIGHT IN REACH. PO FLUIDS SERVED.
--- NOTE | 2019-05-25 14:53 | NUR ---
PT VANDANA PO FLUIDS WITH NO NAUSEA. DRESSING CDI TO RIGHT GROIN, PEDAL PULSES PALPABLE. HOB IS FLAT. VSS, DENIES NEEDS AT THIS TIME.
--- NOTE | 2019-05-25 15:27 | NUR ---
DR WILLIS HAS ROUNDED ON PT. PT IS ALERT AND DENIES ANY C/O. DRESSING CDI TO RIGTH GROIN, AREA IS SOFT AND NONTENDER. PEDAL PULSES PALPABLE. VSS. HOB IS FLAT.
--- NOTE | 2019-05-25 16:30 | NUR ---
1605 DRESSING CDI, PEDAL PULSES PALPABLE. HOB IS FLAT. VSS, AND DAUGHTER AT BEDSIDE. CALL LIGHT IN REACH.
--- NOTE | 2019-05-25 17:00 | NUR ---
DRESSING REMAINS CDI RIGHT GROIN, AREA IS SOFT AND NONTEDER. PEDAL PULSES PALPABLE. HOB ELEVATED 30 DEGREES, SANDWICH AND PO FLUIDS AT BEDSIDE. VSS.
--- NOTE | 2019-05-25 18:15 | NUR ---
1725 DRESSING REMAINS CDI, HOB FULLY ELEVATED.
--- NOTE | 2019-05-25 18:16 | NUR ---
1755 DRESSING REMAINS CDI, PEDAL PULSES PALPABLE. PT IS ALERT AND DENIES ANY C/O. HAS VOIDED 550 CC CLEAR YELLOW URINE TO URINAL. IV DC'D WITH CATH INTACT. DC INSTRUCTIONS REVIEWED WITH PT AND WHO VERBALIZE UNDERSTANDING. PT DRESSING FOR DC WITH ASSIST.
--- NOTE | 2019-05-25 18:18 | NUR ---
1809 PT HAS DRESSED FOR DC TO HOME. DENIES ANY C/O. PT ESCORTED TO PRIVATE AUTO VIA WC BY NURSE WITH DRIVING HIM HOME. PT HAS ALL PERSONAL BELONGINGS AND DC INSTRUCTIONS AT TIME OF DC.
--- NOTE | 2019-05-29 09:53 | OP ---
PATIENT NAME: LUIGI BORJA MEDICAL RECORD: [id number] :48 LOCATION:D.CAT ADMISSION DATE: SURGEON: LEIGHTON WILLIS MD DATE OF OPERATION: 05/25/2019 DATE OF SERVICE: 05/25/2019 PROCEDURES: 1. PTCA stent LAD diagonal. 2. IFR. 3. Left heart catheterization. 4. Selective coronary angiography. 5. Left ventriculogram. 6. Vein graft angiography. 7. EDWARDS angiography. INDICATION: Angina and coronary artery disease. PROCEDURE IN DETAIL: After informed consent was obtained and after a detailed description of risks, benefits as well as alternative therapies, the patient elected to proceed with angiogram and angioplasty. The right femoral area was prepped and draped in normal sterile fashion. Right femoral artery was cannulated via modified Seldinger technique with placement of 6-Czech sheath. All catheters exchanged through this sheath. FINDINGS: Left ventriculogram was performed in standard 30-degree ZIMMERMAN view, reveals good cardiac wall motion, ejection fraction estimated at 60%. SELECTIVE CORONARY ANGIOGRAPHY: 1. Left main showed no significant angiographic disease. 2. Left anterior descending is closed proximally. There is a relatively large LAD diagonal, has previously placed stents with 75% in-stent restenosis. IFR is abnormal with 0.85. 3. Vein graft to this diagonal is closed. 4. EDWARDS to the LAD is widely patent. Distal LAD is widely patent. 5. Left circumflex is closed. 6. Vein graft to circumflex is patent; however, the distal circumflex is small and diffusely diseased. 7. The right coronary artery is chronically totally occluded. Distal right coronary fills via left to right collateral. PTCA STENT OF THE LAD DIAGONAL: The stent used was a 3.0 x 18 mm [place]. Result was 0% residual stenosis. OVERALL IMPRESSION: Successful percutaneous transluminal coronary angioplasty stent of the left anterior descending diagonal going from 75% in-stent restenosis initially to 0% residual. TRANSINT:[id number] Voice Confirmation ID: [id number] DOCUMENT ID: [id number] OPERATIVE REPORT [id number] LUIGI BORJA LEIGHTON HILLMAN MD at 0953 CC: [id number] DICTATION DATE: 05/25/19 1403 GROUND CREWMAN: 05/25/19 1459 DEP CLI 05/25/19 [facility] [address] [place] [address]
== END 2019-05-25 18:10 | disposition home or self-care (01) ==
LOC: D.CATH 09:38
PROVIDERS: ATTEND Internal Medicine Interventional Cardiology
DX: I25.119 Atherosclerotic heart disease of native coronary artery with unspecified angina pectoris (principal); Z01.812 Encounter for preprocedural laboratory examination

== ENCOUNTER 2019-07-17 18:08 | Inpatient (IN) | payer MEDICARE, OTHER ==
[~2019-07-17] VITALS: Ht 180.3 cm; Wt 81.6 kg
[~2019-07-17 18:08] MED LIST changes: +NITRO-DUR0.1 MG TRANSDERM
[2019-07-17] MEDS ORDERED: SULFAMETHOXAZOL1 TA2 PO (18:32)
--- NOTE | 2019-07-17 18:57 | NUR ---
REPORT RECEIVED FROM WILBERT FELIX
[2019-07-17 19:00] VITALS: BP 134/74
[2019-07-17 19:23] LABS: BASOPHILS 0.2 % (0-2); HEMATOCRIT 47.5 % (42.0-54.0); HEMOGLOBIN 17.1 g/dL (13.5-17.5); IMMATURE GRANULOCYTES 0.2 % (0-5); MCV 86.1 fL (80.0-100.0); MEAN PLATELET VOLUME 9.5 fL (7.4-10.4); MONOCYTES 5.2 % (2-11); NEUTROPHILS 85.4 % (40-80); PLATELET COUNT 170 10x3/uL (130-400); RBC 5.52 10x6/uL (4.20-6.10); WBC 9.8 10x3/uL (4.8-10.8)
[2019-07-17 19:56] LABS: ALBUMIN 3.8 g/dL (3.4-5.0); ANION GAP 15.1 mmol/L (8-16); BILIRUBIN - TOTAL 0.65 mg/dL (0.2-1.3); CARBON DIOXIDE 27.1 mmol/L (21.0-32.0); CREATININE - SERUM 1.3 mg/dL (0.6-1.3); POTASSIUM - SERUM 4.2 mmol/L (3.5-5.1)
[2019-07-17 20:00] VITALS: BP 137/80
--- NOTE | 2019-07-17 20:05 | NUR ---
URINE SENT TO LAB FROM IN AND OUT NERI CATH. PT TOLERATED WELL, STERILE FIELD MAINTAINED WITH 50ML OF URINE OUTPUT AT INSERTION.
--- NOTE | 2019-07-17 20:08 | NUR ---
PT HOLLERING OUT IN PAIN DEMANDING TO SEE A DOCTOR. INFORMED PT HE WAS THE NEXT CHART. PT UPSET AND HAS NEVER HAD TO WAIT THIS LONG IN AN ER BEFORE. AGAIN, APOLOGIZED AND OFFERED ANY OTHER ASSIST TO HELP WITH THE PAIN. PT FELT WARM PACKS WOULD HELP. PROVIDED 3 WARM PACKS. C/O ACHING AND JOINT PAIN SINCE AROUND 1600 TODAY. PT ADMITS TO SEEING PCP TODAY FOR SWOLLEN RIGHT TESTICLE AND WAS NOT IN PAIN AT THAT TIME.
--- NOTE | 2019-07-17 20:19 | NUR ---
PT YELLING AT NURSES ABOUT NEVER BEING IN THIS MUCH PAIN AND REQUESTING TO TALK TO ADMINISTRATION. EDP AND CHARGE NURSE INFORMED. PT AT BEDSIDE.
--- NOTE | 2019-07-17 20:25 | NUR ---
PT ATTEMPTING TO LEAVE ROOM, YELLING WHEN PROVIDER WAS GOING TO ASSESS PT. PT RETURNED TO ROOM AT THIS TIME.
[2019-07-17 20:30] LABS: APPEARANCE CLEAR (CLEAR); BILIRUBIN NEGATIVE (NEGATIVE); COLOR YELLOW (YELLOW); GLUCOSE NEGATIVE (NEGATIVE); KETONE NEGATIVE (NEGATIVE); NITRITE NEGATIVE (NEGATIVE); PROTEIN NEGATIVE (NEGATIVE); SPECIFIC GRAVITY 1.015 (1.005-1.020); UROBILINOGEN NORMAL (NORMAL)
--- NOTE | 2019-07-17 20:47 | NUR ---
CONFIRMED WITH PROVIDER THAT PT COULD HAVE WATER. PROVIDED ICE WATER. FAMILY AT BEDSIDE.
[2019-07-17 21:00] VITALS: BP 123/73
[2019-07-17 22:00] VITALS: BP 130/71
--- NOTE | 2019-07-17 23:25 | NUR ---
INFUSION OF NS AND ROCEPHIN COMPLETE AT THIS TIME. PT TRANSPORTED WITH SALINE LOCKED IV.
[2019-07-17 23:49] VITALS: BP 105/61; BMI 25.1
--- NOTE | 2019-07-18 | NUR ---
PT ARRIVED ON STRETCHER, WITH FAMILY. VSS WITH TEMP OF 101.1. PT AAOX3. HARD OF HEARING. PT C/O GENERALIZED BODY PAIN, BUT MOSTLY IN HIS JOINTS. IV MORPHINE ALREADY GIVEN IN ER. WILL ADMINISTER NEXT DOSE WHEN ITS DUE. PT IS A GOOD HX, INITIAL ASSESSMENT COMPLETED. PT EYES APPEARS REDDENED AND BODY FEEL WARM TO TOUCH. WILL NOTIFY PROVIDER.
--- NOTE | 2019-07-18 00:15 | NUR ---
PAGED DR SANDOVAL ABOUT PT TEMP OF 101.1, AND PT'S C/O PAIN. PROVIDER HAS NOT CALL BACK AT THIS TIME. WILL CTM PT. PROVIDED PT WITH A COOL WASH CLOTH. PT VOICED THANKS.
--- NOTE | 2019-07-18 02:29 | NUR ---
PAGED PROVIDER ABOUT PT'S TEMP OF 101.1, AND C/O PAIN. PT PROVIDERS HAS NOT CALL BACK AT THIS TIME. PROVIDED PT WITH COOL WASH CLOTH. SPOUSE AT BEDSIDE. WILL CTM.
[2019-07-18 03:52] VITALS: BP 100/52
--- NOTE | 2019-07-18 04:23 | NUR ---
PT'S TEMP NOW 101.6. PAGED DR. SANDOVAL, BUT NO CALL BACK YET. WILL CTM PT.
--- NOTE | 2019-07-18 04:37 | NUR ---
DR. SANDOVAL PRESCRIBED TYLENOL PRN 100MG PO Q6HP FOR PAIN. ALTHOUGH APAP IS LISTED AMONG PT'S ALLERGIES, PT AND SPOUSE STATED THAT APAP ONCE ADDED TO IT BECAUSE PREVIOUS PROVIDER THINKS IT MIGHT BE HARD ON HIS LIVER AND INCREASE RISK FOR BLEEDING, SINCE PT IS ON MULTIPLE BLOOD THINNERS. PT AFFIRM THAT APAP DOES NOT REALLY CAUSE AN ALLERGIC RXN TO HIM. PO TYLENOL GIVEN. WILL MONITOR AND REASSESS.
--- NOTE | 2019-07-18 05:44 | NUR ---
PT'S TEMP AT THIS TIME IS 99.6. STATES HE DOES NOT FEEL FEVERISH ANYMORE. ALTHOUGH PT STILL C/O OF GENERALIZED PAIN, 04/02. WILL ADMINISTER IV MORPHINE ORDERED.
[2019-07-18 07:00] VITALS: BP 90/51
--- NOTE | 2019-07-18 10:12 | NUR ---
0700 AWAKE IN BED EATING BREAKFAST 75% VOICES NO COMLAINTS AT PRESENT SPOUSE REMAINS AT BEDSIDE TO ASSIST NEEDED. ASSESSMENT COMPLETE SALINE LOCK FLAUSHED AND PATENT
--- NOTE | 2019-07-18 10:14 | NUR ---
[address] SANDOVAL INFORMINIG HIM OF LOW B/P 90/51 INSTRUCTED TO HOLD BETAPACE UNLESS HEART RATE GETS TACHE. LOW GRADE TEMP 99.4 FOLLOWS INSTRUCTIONS AND REPOSITIONS INDEPENDENTLY STARTED NS AT 75 TO RIGHT WRIST SALINE LOCK STARTED VANCOMYCIN 1 GRAM IVPB INSTRUCTED SPOUSE OF [id number] WAY TO GIVE PATIENT MEDS BY HAVING THEM LABELED IN PHARMACY
[2019-07-18 11:00] VITALS: BP 111/56
--- NOTE | 2019-07-18 11:56 | NUR ---
1110 ECHO AND XRAY COMPLETED
--- NOTE | 2019-07-18 11:58 | NUR ---
0957 UP TO TOILET VOIED WITHOUT DIFFICULTY
--- NOTE | 2019-07-18 12:00 | NUR ---
0915 NS INFUSING AT 75ML/HOUR TO RIGHT IJ MAGNESIUM 2 GRAM IVBP INFUSING
--- NOTE | 2019-07-18 14:03 | NUR ---
1130 C/O BACK PAIN 05/02 MORPHINE 2MG IV GIVEN
--- NOTE | 2019-07-18 14:04 | NUR ---
1400 SPOKE TO DWAINE RN, DR FELIX NURSE, RE PATIENT USING OWN HOME MEDS. SEEND RX BOTTLES TO PHARMACY FOR ID AND LABELING
--- NOTE | 2019-07-18 14:04 | NUR ---
1330 RESTING QUIETLY WITH EYES CLOSED
--- NOTE | 2019-07-18 14:12 | MORECARE ---
CASE MANAGEMENT DISCHARGE SUMMARY PATIENT: LUIGI TERESA UNIT: [id number] ADM DATE: 07/17/19 AGE: 69 : 49 SEX: M ROOM/BED: D.1204 AUTHOR: BONIFACIO,DOC PHYSICIAN: REFERRING PHYSICIAN: SHANKAR SANDOVAL MD DATE OF SERVICE: 07/18/19 Discharge Plan Patient Name: LUIGI TERESA Facility: [facility]:[place] : 1950 Planned Disposition: Home Anticipated Discharge Date: 07/20/19 Discharge Date: Expected LOS: 3 Initial Reviewer: [email or web address] Initial Review Date: 07/17/2019 Generated: 07/18/19 3:12 pm DCP- Discharge Planning Updated by [email or web address]: Vria Grande on 07/18/19 1:[address] DC PLAN: Home independently with his . ANTICIPATED DC NEEDS: denied dc needs. will transport home at time of discharge. CM met with patient and his , Tyra to complete initial dc planning assessment. CM educated patient on the CM role and verbal consent given by patient to complete assessment. CM verified patient's address, phone number, and emergency contact phone numbers. Patient lives at home with his and reports he is independent in his care at home. At discharge patient plans to return home with his and feels this is a safe discharge. CM discussed availability of home health, rehab services, and medical equipment. Patient denied known discharge needs at this time. Patient reports his will transport him home at time of discharge. CM will continue to follow and will assist as needed with dc plans/needs. Vira Grande RN, [facility] DCPIA - Discharge Planning Initial Assessment Updated by [email or web address]: Vira Grande on 07/18/19 2:06 pm * Is the patient Alert and Oriented? Yes * PCP Dr. Sandoval * Pharmacy [facility] * Preadmission Environment Home with Family * ADLs Independent * Equipment None * List name and contact numbers for known caregivers / representatives who currently or will assist patient after discharge: Tyra Teresa - - [phone] * Verbal permission to speak to the caregivers and representatives has been obtained from the patient. Yes * Community resources currently utilized None * Additional services required to return to the preadmission environment? No * Can the patient safely return to the preadmission environment? Yes * Has this patient been hospitalized within the prior 30 days at any hospital? No Patient Name: LUIGI TERESA Page 72916 at 1412 All edits/amendments must be made on the electronic document DICTATION DATE: 07/18/191410 CAUSTIC ROOM ATTENDANT: DEMETRIA 07/18/191410 RPT#: [id number] DC DATE: STATUS: ADM IN [facility] [address] [place] [address] END OF REPORT
[2019-07-18 14:55] VITALS: Ht 180.3 cm; Wt 81.6 kg
--- NOTE | 2019-07-18 16:25 | NUR ---
1613 C/O NECK PAIN 07/03 MORPHINE 2MG IV GIVEN
--- NOTE | 2019-07-18 16:26 | NUR ---
[address] MOON PACKAGE CLERK REGARDING SEVERE PAIN TO PATIENTS NECK REPORTED FREQUENCY OF PAIN. DWAINE RN WILL REPORT THIS ASSESSMENT TO DR MOON.
--- NOTE | 2019-07-18 19:30 | NUR ---
PATIENT IS AAO. PATIENT DENIES ANY PAIN OR CONCERNS AT THIS TIME. BREATHING IS UNLABORED AND EVEN. BED IS IN THE LOWEST POSTION AND CALL LIGHT IN REACH. WILL CONTINUE TO MONITOR.
[2019-07-18 20:05] VITALS: BP 109/60
[2019-07-19 00:31] VITALS: BP 114/51
[2019-07-19 04:43] VITALS: BP 138/87
--- NOTE | 2019-07-19 06:42 | NUR ---
I CONCUR WITH CONSUMER STUDIES PROFESSOR ASSESSMENT.
[2019-07-19 07:01] LABS: BASOPHILS 0.2 % (0-2); EOSINOPHILS 1.4 % (0-7); HEMOGLOBIN 15.1 g/dL (13.5-17.5); IMMATURE GRANULOCYTES 0.4 % (0-5); LYMPHOCYTES 16.2 % (15-50); MCH 30.3 pg (26.0-34.0); MCHC 35.1 g/dL (31.0-37.0); MCV 86.3 fL (80.0-100.0); MEAN PLATELET VOLUME 9.1 fL (7.4-10.4); MONOCYTES 9.2 % (2-11); NEUTROPHILS 72.6 % (40-80); RBC 4.98 10x6/uL (4.20-6.10); RDW 12.9 % (11.5-14.5)
[2019-07-19 07:11] LABS: PLATELET COUNT 133 10x3/uL (130-400); WBC 4.9 10x3/uL (4.8-10.8)
[2019-07-19 07:31] LABS: ANION GAP 10.2 mmol/L (8-16); BILIRUBIN - TOTAL 0.84 mg/dL (0.2-1.3); CALCIUM 7.9 mg/dL (8.5-10.1); CARBON DIOXIDE 25.9 mmol/L (21.0-32.0); CREATININE - SERUM 1.3 mg/dL (0.6-1.3); POTASSIUM - SERUM 4.1 mmol/L (3.5-5.1)
[2019-07-19 07:33] LABS: ALBUMIN 2.8 g/dL (3.4-5.0)
--- NOTE | 2019-07-19 07:45 | NUR ---
PT REQUESTED PAIN MEDICATION.
[2019-07-19 08:30] VITALS: BP 110/53
--- NOTE | 2019-07-19 08:30 | NUR ---
AM ROUNDS- ADMINISTERED PRN MORPHINE FOR GENERALIZED PAIN. ADMINISTERED MORNING MEDICATION AT THIS TIME, NO TROUBLE SWALLOWING. PT IS ALERT AND ORIENTED X4. FAMILY IS AT BEDSIDE. ASSESSED VITALS AT THIS TIME. DENIES ANY NEEDS. WILL CTM. TEMP-99.1 BP-110/53 P-73 R-18 O2-96% ROOM AIR
--- NOTE | 2019-07-19 11:32 | NUR ---
ADMINISTERED MEDICATION AT THIS TIME, NO TROUBLE SWALLOWING. NEW BAG OF FLUIDS HUNG. PT IS RESTING COMFORTABLY IN BED WITH FAMIL AT BEDSIDE. DENIES ANY NEEDS. WILL CTM.
--- NOTE | 2019-07-19 14:56 | NUR ---
PT RESTING COMFORTABLY IN BED WITH AT BEDSIDE. DENIES ANY NEEDS. WILL CTM.
--- NOTE | 2019-07-19 16:06 | NUR ---
PT TO CT VIA WHEELCHAIR.
--- NOTE | 2019-07-19 16:19 | NUR ---
PT RETURNED FROM CT.
--- NOTE | 2019-07-19 18:14 | NUR ---
ADMINISTERED PRN MORPHINE FOR GENERALIZED PAIN 04/02. TOLERATED WELL. DENIES ANY NEEDS. RESTING COMFORTABLY IN BED. WILL CTM.
[2019-07-19 20:06] VITALS: BP 115/65
[2019-07-20 00:49] VITALS: BP 126/69
[2019-07-20 04:48] VITALS: BP 141/73
[2019-07-20 07:22] LABS: BASOPHILS 0.4 % (0-2); EOSINOPHILS 2.2 % (0-7); HEMATOCRIT 44.8 % (42.0-54.0); HEMOGLOBIN 15.5 g/dL (13.5-17.5); IMMATURE GRANULOCYTES 0.5 % (0-5); LYMPHOCYTES 17.3 % (15-50); MCH 30.6 pg (26.0-34.0); MCHC 34.6 g/dL (31.0-37.0); MCV 88.4 fL (80.0-100.0); MEAN PLATELET VOLUME 9.5 fL (7.4-10.4); MONOCYTES 10.6 % (2-11); PLATELET COUNT 162 10x3/uL (130-400); RBC 5.07 10x6/uL (4.20-6.10); RDW 12.8 % (11.5-14.5); WBC 5.6 10x3/uL (4.8-10.8)
[2019-07-20 07:53] LABS: ALBUMIN 2.8 g/dL (3.4-5.0); ANION GAP 11.4 mmol/L (8-16); BILIRUBIN - TOTAL 0.59 mg/dL (0.2-1.3); CALCIUM 8.1 mg/dL (8.5-10.1); CARBON DIOXIDE 25.5 mmol/L (21.0-32.0); CREATININE - SERUM 1.2 mg/dL (0.6-1.3); POTASSIUM - SERUM 3.9 mmol/L (3.5-5.1); PROTEIN - SERUM 6.1 g/dL (6.4-8.2)
--- NOTE | 2019-07-20 09:06 | NUR ---
ADMINSITERED MORNING MEDICATION, NO TROUBLE SWALLOWING. RESTING COMFORTABLY IN BED WITH AT BEDSIDE. DENIES ANY NEEDS. WILL CTM.
--- NOTE | 2019-07-20 12:56 | NUR ---
PT RESTING COMFORTABLY UPON ENTERIN WITH AT BEDSIDE. REQUESTED TO SHOWER, TAPED OFF PT IV AND PROVIDED WITH SHAMPOO/BODY WASH. DENIES ANY OTHER NEEDS. WILL CTM.
--- NOTE | 2019-07-20 13:59 | NUR ---
ADMINSITERED PRN PAIN MEDICATION FOR PAIN LEVEL OF 6/10, GENERALIZED PAIN. TOLERATED WELL. AT BEDSIDE. DENIES ANY NEEDS. WILL CTM.
--- NOTE | 2019-07-20 17:04 | NUR ---
PT RESTING COMFORTABLY IN BED, AT BEDSIDE. DENIES ANY NEEDS. WILL CTM.
--- NOTE | 2019-07-20 18:38 | NUR ---
CALLED PHARMACY TO INFORM THEM THE PYXIS DOES NOT HAVE DECADRON 10MG ORDERED. THEY STATED THEY WILL BRING ONE.
--- NOTE | 2019-07-20 19:15 | NUR ---
REPORT RECEIVED, WILL CONTINUE POC. PATIENT A/OX4, UP AD MANDA. RADIOLOGY IS HERE TO TAKE PATIENT TO CT. NO S/S OF DISTRESS NOTED, RR EVEN AND UNLABORED ON ROOM AIR. PATIENT DENIES NEEDS AT THIS TIME. CL IN REACH, BED LOCKED AND LOWERED. WILL CTM.
--- NOTE | 2019-07-20 19:35 | NUR ---
PATIENT BACK FROM CT. CL IN REACH. WILL CTM.
[2019-07-20 20:00] VITALS: BP 162/81
--- NOTE | 2019-07-20 21:00 | NUR ---
PATIENT C/O PAIN AT IV SITE. IV REMOVED WITH CATH TIP INTACT. RESITED WITH A 20G TO LT FOREARM X1 ATTEMPT. PATIENT TOLERATED WELL. FLUIDS RESTARTED. WILL CTM.
[2019-07-21 00:15] VITALS: BP 140/88
--- NOTE | 2019-07-21 02:41 | NUR ---
I have reviewed this patient and I concur with the Shift Assessment completed by the Licensed Practical Nurse today this shift.
[2019-07-21 06:10] LABS: BASOPHILS 0 % (0-2); EOSINOPHILS 0 % (0-7); HEMATOCRIT 47.6 % (42.0-54.0); HEMOGLOBIN 16.7 g/dL (13.5-17.5); IMMATURE GRANULOCYTES 0.5 % (0-5); LYMPHOCYTES 14.9 % (15-50); MCH 30.8 pg (26.0-34.0); MCHC 35.1 g/dL (31.0-37.0); MCV 87.7 fL (80.0-100.0); MEAN PLATELET VOLUME 9.5 fL (7.4-10.4); MONOCYTES 1.8 % (2-11); NEUTROPHILS 82.8 % (40-80); PLATELET COUNT 191 10x3/uL (130-400); RBC 5.43 10x6/uL (4.20-6.10); RDW 12.8 % (11.5-14.5)
[2019-07-21 06:16] LABS: WBC 3.8 10x3/uL (4.8-10.8)
[2019-07-21 06:29] LABS: ALBUMIN 3.1 g/dL (3.4-5.0); ALKALINE PHOSPHATASE 64 U/L (46-116); BILIRUBIN - TOTAL 0.52 mg/dL (0.2-1.3); CALCIUM 8.7 mg/dL (8.5-10.1); CARBON DIOXIDE 26.2 mmol/L (21.0-32.0); CHLORIDE - SERUM 102 mmol/L (98-107); PROTEIN - SERUM 6.4 g/dL (6.4-8.2); SODIUM 139 mmol/L (136-145); UREA NITROGEN 14 mg/dL (7-18); eGFR NON AFRICAN AMERICAN 78 mL/min (90-120)
[2019-07-21 06:30] LABS: ALT (SGPT) 18 U/L (10-68); CALC OSMOLALITY 281 mosm/kg (275-300); GLUCOSE 152 mg/dL (74-106); POTASSIUM - SERUM 4.5 mmol/L (3.5-5.1)
[2019-07-21] MEDS ORDERED: MEDROL DOSE PACK4 MG PO (09:18)
--- NOTE | 2019-07-21 10:04 | NUR ---
PT ALERT X 4. BREATH SOUNDS CLEAR BILAT. IV TO LEFT FOREARM, PATENT, DRESSING CDI. PT REPORTING PAIN OF 1/10, WILL MONITOR. SWELLING NOT PRESENT. EXPECTED DC HOME, AWAITING PAPERWORK. FAMILY AT BEDSIDE. BED LOW, CALL LIGHT IN REACH. NO OTHER NEEDS AT THIS TIME.
--- NOTE | 2019-07-21 10:55 | NUR ---
DISCHARGE PAPERWORK SIGNED, ALL QUESTIONS ANSWERED. IV TO LEFT FOREARM DC'D, TIP INTACT.
--- NOTE | 2019-07-21 15:46 | MORECARE ---
CASE MANAGEMENT DISCHARGE SUMMARY PATIENT: LUIGI TERESA UNIT: [id number] ADM DATE: 07/17/19 AGE: 69 : 49 SEX: M ROOM/BED: D.1204 AUTHOR: BONIFACIO,DOC PHYSICIAN: REFERRING PHYSICIAN: SHANKAR SANDOVAL MD DATE OF SERVICE: 07/21/19 Discharge Plan Patient Name: LUIGI TERESA Facility: [facility]:[place] : 1950 Planned Disposition: Home Anticipated Discharge Date: 07/20/19 Discharge Date: 07/21/2019 Expected LOS: 3 Initial Reviewer: [email or web address] Initial Review Date: 07/17/2019 Generated: 07/21/19 4:46 pm DCP- Discharge Planning Updated by [email or web address]: Vira Grande on 07/18/19 1:[address] DC PLAN: Home independently with his . ANTICIPATED DC NEEDS: denied dc needs. will transport home at time of discharge. CM met with patient and his , Tyra to complete initial dc planning assessment. CM educated patient on the CM role and verbal consent given by patient to complete assessment. CM verified patient's address, phone number, and emergency contact phone numbers. Patient lives at home with his and reports he is independent in his care at home. At discharge patient plans to return home with his and feels this is a safe discharge. CM discussed availability of home health, rehab services, and medical equipment. Patient denied known discharge needs at this time. Patient reports his will transport him home at time of discharge. CM will continue to follow and will assist as needed with dc plans/needs. Vira Grande RN, [facility] DCPIA - Discharge Planning Initial Assessment Updated by [email or web address]: Vira Grande on 07/18/19 2:06 pm * Is the patient Alert and Oriented? Yes * PCP Dr. Sandoval * Pharmacy [facility] * Preadmission Environment Home with Family * ADLs Independent * Equipment None * List name and contact numbers for known caregivers / representatives who currently or will assist patient after discharge: Tyra Teresa - - [phone] * Verbal permission to speak to the caregivers and representatives has been obtained from the patient. Yes * Community resources currently utilized None * Additional services required to return to the preadmission environment? No * Can the patient safely return to the preadmission environment? Yes * Has this patient been hospitalized within the prior 30 days at any hospital? No Last DP export: 07/18/19 1:12 p Patient Name: LUIGI TERESA Page 69727 at 1546 All edits/amendments must be made on the electronic document DICTATION DATE: 07/21/196 LICENSED NUCLEAR OPERATOR: DEMETRIA 07/21/19 1546 RPT#: [id number] DC DATE:07/21/19 STATUS: DIS IN [facility] [address] [place] [address] END OF REPORT
== END 2019-07-21 12:57 | disposition home or self-care (01) | DRG 872 ==
LOC: D.ER 18:08 → D.M3 22:26
PROVIDERS: Family Medicine; ADMIT Family Medicine; ATTEND Family Medicine
DX: A41.9 Sepsis, unspecified organism (principal); N45.1 Epididymitis; I48.2 Chronic atrial fibrillation; M51.16 Intervertebral disc disorders with radiculopathy, lumbar region; R91.8 Other nonspecific abnormal finding of lung field; R51 Headache; M43.6 Torticollis

== ENCOUNTER 2019-07-26 10:15 | Inpatient (IN) | payer MEDICARE, OTHER ==
[~2019-07-26] VITALS: Ht 180.3 cm; Wt 82.6 kg
--- NOTE | ~2019-07-26 | HEMODYNAMI ---
PATIENT:LUIGI BORJA MEDICAL RECORD: [id number] : 48 LOCATION:[facility] ADMISSION DATE: 07/26/19 Generatedon:07/30/20199:27 Patient name: LUGII BORJA Patient #: [id number] : 1950 Date of study: 07/30/2019 Page: Of Hemodynamic Procedure Report Patient Data Patient Demographics Procedure consent was obtained First Name: LUIGI Gender: Male Last Name: JONH : 1950 Middle Initial: M Age: 69 year(s) Patient #: [id number] Race: SSN: [id number] Additional ID: [id number] Contact details [address]: [address] [place] [address] State: [place] City: [place] Zip code: [address] Past Medical History Allergies Allergen Reaction Date Comments Reported Penicillins 02/17/2015 Other allergy 02/17/2015 Feldene Lipitor 02/17/2015 Other allergy 02/17/2015 Meropenem Other allergy 02/04/2017 PCN, Feldene, Statins,Meropenen Other allergy 01/31/2018 Feldene, PCN, Lipitor, Hydrocodone, Vicodin, Meropenen, Effient, Crestor. Other allergy 10/13/2018 CRESTOR, FELDENE, LIPITOR, MEROPENEM, PCN Other allergy 01/19/2019 CRESTOR, FELDENE, LIPITOR, MEROPENEM, PCN Other allergy 05/25/2019 CRESTOR, FELDENE, LIPITOR, MEROPENEM, PCN Admission Admission Data Admission Date: 07/26/2019 Admission Time: 10:15 Room #: [id number].2238 Procedure Procedure Types Cath Procedure Peripheral Cath Diagnostic Procedure Bone Biopsy Deep Miscellaneous Lumbar Puncture Procedure Description Procedure Date Procedure Date: 07/30/2019 Procedure Start Time: 8:55 Procedure Staff Name Function Omari Franco MD Performing Physician Nik Burr RT Monitor LOREN PYLE RT Scrub Nichelle Contreras RN Nurse Procedure Data Cath Procedure Fluoroscopy Diagnostic fluoroscopy Total fluoroscopy Time: 0.6 time: 0.6 min min Diagnostic fluoroscopy Total fluoroscopy dose: 158 dose: 158 mGy mGy Procedure Medications Medication Administration Route Dosage Lidocaine 1% added to field 20 Fentanyl I.V. 50 mcg Versed I.V. 1 mg Fentanyl I.V. 25 mcg Versed I.V. 0.5 mg Hemodynamics Rest Heart Rate: 0 (bpm) Snapshots Pre Cath Intra NCS Post Cath Vital Signs Time Heart Resp SPO2 etCO2 NIBP (mmHg) Rhythm Pain Sedation Rate (ipm) (%) (mmHg) Status Level (bpm) 8:45:01 72 21 100 27.9 160/101(138) NSR 0 (11) 10(A) , No pain 8:49:13 72 15 100 29.4 170/106(144) NSR 0 (11) 10(A) , No pain 8:53:31 73 18 100 28.7 165/103(146) NSR 0 (11) 10(A) , No pain 8:57:45 74 16 100 30.2 159/107(146) NSR 0 (11) 10(A) , No pain 9:01:57 79 15 100 27.9 157/103(129) NSR 0 (11) 8(A) , No pain 9:06:07 78 14 100 29.4 153/110(137) NSR 0 (11) 8(A) , No pain 9:10:17 82 14 100 30.2 156/105(133) NSR 0 (11) 8(A) , No pain 9:14:27 78 13 100 23.4 150/106(121) NSR 0 (11) 10(A) , No pain 9:18:35 80 14 100 27.2 154/104(127) NSR 0 (11) 10(A) , No pain 9:22:45 79 15 100 26.4 154/100(124) NSR 0 (11) 10(A) , No pain 9:26:54 82 16 100 30.9 152/109(126) NSR 0 (11) 10(A) , No pain Medications Time Medication Route Dose Verified Delivered Reason Notes Effectivene ss by by 8:54:41 Lidocaine added 20ml Omari Salcido used for 1% to vial Franco Franco procedure field MD CHOI 8:58:32 Fentanyl I.V. 50 Omari Steward for mcg Joan Contreras RN sedation 8:58:43 Versed I.V. 1 mg Omari Steward for Joan Contreras RN sedation 9:12:35 Fentanyl I.V. 25 Omari Steward for mcg Joan Contreras RN sedation 9:12:44 Versed I.V. 0.5 Omari Steward for mg Joan Contreras RN sedation Procedure Log Time Note 8:33:27 Nichelle Contreras RN sent for patient. Start room use. 8:33:36 Time tracking: Regular hours (M-F 7:00 - 5:00) 8:33:41 Plan of Care:Hemodynamics will remain stable., Cardiac rhythm will remain stable., Comfort level will be maintained., Respiratory function will remain adequate., Patient/ family verbilizes understanding of procedure., Procedure tolerated without complication., Recovers from procedure without complications.. 8:33:48 Patient received from Med/Surg to IR Alert and oriented. Tansferred to table in Prone position. 8:34:06 Signed procedure consent form obtained from patient. 8:34:09 Correct patient and procedure confirmed by team. 8:34:11 ECG and BP/O2 sat monitors applied to patient. 8:34:14 Full Disclosure recording started 8:34:14 8:34:20 H&P Date Dictated: 07/30/2019 Within 30 days and on chart.. 8:34:21 Pre-procedure instructions explained to patient. 8:34:25 Pre-op teaching completed and patient verbalized understanding. 8:34:27 Family unavailable. 8:34:29 Patient NPO since Midnight. 8:35:55 Use device set IR Diagnostic 8:35:56 Tegaderm 4 x 4 ([id number]) opened to sterile field. 8:35:58 Bag Decanter (2002S) opened to sterile field. 8:35:59 Sterile Angiographic Pack opened to sterile field. 8:42:22 Is the patient allergic to Iodine/contrast media? No. 8:42:24 Is patient on blood thinner?No 8:42:36 Patient diabetic? No. 8:42:43 8:42:44 ----Pre-sedation anethsthesia assessment.---- 8:42:48 Previous problem with sedation/anesthesia? No ? 8:42:52 Snore? Yes 8:42:56 Sleep apnea? Yes 8:43:08 Deviated septum? No 8:43:09 Opens mouth fully? Yes 8:43:10 Sticks out tongue? Yes 8:43:13 Airway obstruction? No ? 8:43:17 Dentures? No ? 8:43:33 IV patent on arrival in left hand with 0.9% NaCl at [facility]. 8:43:43 Lumbar area was prepped with chlora-prep and draped in sterile fashion 8:43:48 Alarms reviewed by R. N. 8:43:48 Sharps counted by scrub and verified by R.N. 8:43:56 Vital chart was started 8:43:57 Baseline sample Acquired. 8:51:48 Baseline sample Acquired. 8:54:41 Lidocaine 1% 20ml vial added to field was administered by Omari Franco MD; used for procedure; Verbal order read back and verified. 8:55:04 Physician arrived 8:55:05 --------ALL STOP TIME OUT------ 8:55:06 Final Timeout: patient, procedure, and site verified with staff and physician. All members of the team are in agreement. 8:55:08 Lumbar site verified by team. 8:55:13 Fire Safety Assessment: A--An alcohol-based skin anteseptic being used preoperatively., C--Open oxygen or nitrous oxide is being used. 8:55:21 Sedation plan: IV Moderate Sedation Medication:Versed, Fentanyl 8:55:32 Procedure started. 8:55:55 Local anesthetic to Lumbar area with Lidocaine 1% by Omari Franco MD.INITIAL ACCESS ONLY 8:56:04 SAFE-T BX TRAY opened to sterile field. 8:58:32 Fentanyl 50 mcg I.V. was administered by Nichelle Contreras RN; for sedation; Verbal order read back and verified. 8:58:43 Versed 1 mg I.V. was administered by Nichelle Contreras RN; for sedation; Verbal order read back and verified. 8:59:39 SPINAL NEEDLE 20GX3.5 IN ([id number]) opened to sterile field. 9:12:35 Fentanyl 25 mcg I.V. was administered by Nichelle Contreras RN; for sedation; Verbal order read back and verified. 9:12:44 Versed 0.5 mg I.V. was administered by Nichelle Contreras RN; for sedation; Verbal order read back and verified. 9:17:56 Avamax 11G BX COAXIAL BONE Needle opened to sterile field. 9:18:07 Procedure ended.(Physican Out) 9:18:15 Fluoroscopy time 00.60 minutes. 9:18:27 Fluoroscopy dose: 158 mGy 9:18:27 Flurop Dose total: 158 9:19:15 Sharps counted by scrub and verified by R.N. 9:19:17 Insertion/operative site no bleeding no hematoma. 9:19:27 Post Lumbar area:stable 9:21:13 Post procedure instruction explained to patient.Patient verbalizes understanding. 9:21:13 Procedure and supply charges have been captured, reviewed, submitted and are correct. 9:27:16 Report given to Med/Surg. 9:27:21 Patient transfered to Med/Surg with Bed. 9:27:53 Vital chart was stopped Device Usage Item Name Manufacture Quantity Catalog Hospital Part Current Minimal Lot# / Number Charge Number Stock Stock Serial# Code Tegaderm 4 x 3M 1 [id number] 4 (1626W) Bag Decanter Microtek 1 [id number] 5 () [employer] Sterile Cardinal 1 [id number] [id number] 5 Angiographic Health Pack SAFE-T BX [employer] 1 [id number] 706756 5 TRAY SPINAL B. Lopez 1 [id number] [id number] 2366 [id number] 1 NEEDLE 20GX3.5 IN ([id number]) Avamax 11G CareFusion 1 [id number] [id number] [id number] 5 BX COAXIAL BONE Needle Signature Audit [place] Time Signature Unsigned Intra-Procedure 07/30/2019 Nik 9:27:49 AM Leno RT (R) (CV) [facility] [address] [place] [address]
[~2019-07-26 10:15] MED LIST changes: +MEDROL DOSE PACK4 MG PO; +SULFAMETHOXAZOL1 TA2 PO
[2019-07-26] MEDS ORDERED: DECADRON4 MG PO (10:39)
[2019-07-26 10:40] VITALS: BP 138/85; BMI 25.4
--- NOTE | 2019-07-26 10:59 | NUR ---
ADMISSION ASSESSMENT COMPLETED PER PROTOCOL. IV SITED TO [facility] WITH 20 GAUGE.
--- NOTE | 2019-07-26 12:04 | NUR ---
LAB CALLED ABOUT STAT PLATELETS AND TYPE/SCREEN. STATES SHOWED ROUTINE ON THEIR SIDE AND WILL GET SOMEONE OVER TO DRAW BLOOD.
[2019-07-26 12:36] LABS: BASOPHILS 2.2 % (0-2); EOSINOPHILS 0 % (0-7); HEMATOCRIT 52.2 % (42.0-54.0); HEMOGLOBIN 19.3 g/dL (13.5-17.5); IMMATURE GRANULOCYTES 9.4 % (0-5); MCH 31.4 pg (26.0-34.0); MCV 84.9 fL (80.0-100.0); MONOCYTES 7.2 % (2-11); NEUTROPHILS 68.2 % (40-80); RBC 6.15 10x6/uL (4.20-6.10); RDW 12.8 % (11.5-14.5); WBC 3.6 10x3/uL (4.8-10.8)
[2019-07-26 12:40] LABS: PLATELET COUNT 16 10x3/uL (130-400)
--- NOTE | 2019-07-26 13:25 | NUR ---
FIRST UNIT PLATELETS INITIATED. VITALS STABLE. WILL CONTINUE TO MONITOR.
[2019-07-26 13:30] LABS: PLATELET ESTIMATE DECREASED
--- NOTE | 2019-07-26 13:34 | NUR ---
FIRST BAG OF PLATELETS COMPLETE. SECOND BAG INITIATED.
--- NOTE | 2019-07-26 13:40 | NUR ---
PATIENT STATES STARTED ITCHING. INFUSION PAUSED. AT [facility] NOTIFIED. LUISITOADSHAKILAL ORDERED.
--- NOTE | 2019-07-26 13:45 | NUR ---
PRN BENADRYL GIVEN AND PLATELET TRANSFUSION RE INITIATED. WILL CONTINUE TO MONITOR.
--- NOTE | 2019-07-26 13:56 | NUR ---
PLATELET TRANSFUSION COMPLETE. VITALS STABLE.
--- NOTE | 2019-07-26 14:20 | NUR ---
RESTING IN BED. DENIES NEEDS. WILL CONTINUE TO MONITOR.
[2019-07-26 15:04] LABS: ANION GAP 12.4 mmol/L (8-16); APTT 32.9 SECONDS (22.8-39.4); CALCIUM 8.8 mg/dL (8.5-10.1); CARBON DIOXIDE 25.6 mmol/L (21.0-32.0); CREATININE - SERUM 1.6 mg/dL (0.6-1.3); INR 1.22 (0.85-1.17); PROTIME 14.9 SECONDS (11.6-15.0)
[2019-07-26 15:05] LABS: D-DIMER-QUANTITATIVE 3.28 ug/mLFEU (0.20-0.54)
--- NOTE | 2019-07-26 16:47 | NUR ---
RESTING IN BED. DENIES NEEDS. WILL CONTINUE TO MONITOR.
[2019-07-26 17:07] VITALS: BP 148/81
--- NOTE | 2019-07-26 18:46 | NUR ---
RESTING IN BED. REQUESTED AND GIVEN ICE CREAM AND ICE WATER. DENIES FURTHER NEEDS. BED LOW. CALL FERNÁNDEZ AND PERSONAL ITEMS IN REACH.
[2019-07-26 20:00] VITALS: BP 136/84
--- NOTE | 2019-07-27 00:03 | NUR ---
PT RESTING IN BED. EYES CLOSED. NO SIGNS OF DISTRESS. BREATHING EVEN AND UNLABORED. IV SITE LT FA DRESSING CLEAN DRY AND INTACT. NO SIGNS OF INFECTION. SKIN CLEAN DRY AND INTACT. BOWEL SOUNDS ACTIVE. LUNG SOUNDS CLEAR. NO LOWER LEG SWELLING PRESENT. WILL CONTINUE PLAN OF CARE. CALL LIGHT IN REACH. BED LOWERED AND LOCKED. BED RAILS UPX2.
[2019-07-27 06:26] VITALS: BP 133/82
[2019-07-27 07:24] LABS: BASOPHILS 0.6 % (0-2); EOSINOPHILS 0 % (0-7); HEMATOCRIT 46.5 % (42.0-54.0); HEMOGLOBIN 16.8 g/dL (13.5-17.5); IMMATURE GRANULOCYTES 2.3 % (0-5); LYMPHOCYTES 20.7 % (15-50); MCH 30.8 pg (26.0-34.0); MCHC 36.1 g/dL (31.0-37.0); MCV 85.2 fL (80.0-100.0); MEAN PLATELET VOLUME 11.3 fL (7.4-10.4); MONOCYTES 8.8 % (2-11); NEUTROPHILS 67.6 % (40-80); RBC 5.46 10x6/uL (4.20-6.10); RDW 12.6 % (11.5-14.5); WBC 3.5 10x3/uL (4.8-10.8)
[2019-07-27 07:32] LABS: PLATELET COUNT 38 10x3/uL (130-400)
--- NOTE | 2019-07-27 07:38 | NUR ---
CT NOTIFIED THAT PATIENT TOOK ELIQUIS AND PLAVIX YESTERDAY MORNING BUT INR DRAWN 1.22. STATES WILL LET DOC KNOW AND MAKE JUDGEMENT CALL.
[2019-07-27 07:40] LABS: ALBUMIN 2.9 g/dL (3.4-5.0); ANION GAP 12.5 mmol/L (8-16); BILIRUBIN - TOTAL 0.45 mg/dL (0.2-1.3); CALCIUM 8.6 mg/dL (8.5-10.1); CARBON DIOXIDE 25.3 mmol/L (21.0-32.0); CREATININE - SERUM 1.2 mg/dL (0.6-1.3); POTASSIUM - SERUM 4.8 mmol/L (3.5-5.1); PROTEIN - SERUM 6.2 g/dL (6.4-8.2)
--- NOTE | 2019-07-27 07:45 | NUR ---
ALERT AND ORIENTED. LUNGS CLEAR BILATERALLY IN ALL QUEZADA. HEART SOUNDS S1 AND S2 HEARD IN ALL QUEZADA. BOWEL SOUNDS ACTIVE X 4. SKIN INTACT WITHOUT REDNESS. INFORMED OF NEED TO REMAIN NPO FOR POSSIBLE CT BONE MARROW BX TODAY. DENIES NEEDS. BED LOW. CALL FERNÁNDEZ AND PERSONAL ITEMS IN REACH. WILL CONTINUE TO MONITOR.
[2019-07-27 07:49] LABS: PLATELET ESTIMATE DECREASED
[2019-07-27 08:44] VITALS: BP 126/80
--- NOTE | 2019-07-27 10:20 | NUR ---
IV OCCLUDED TO LFA. RESITED TO POSTERIOR LFA.
--- NOTE | 2019-07-27 10:23 | NUR ---
SPOKE WITH CT WHO STATES CANNOT TO BONE BX TODAY D/T TOOK BLOOD THINNERS YESTERDAY AM. STATES WILL DO TUESDAY.
[2019-07-27 11:10] LABS: ERYTHROPOIETIN 2.6 mIU/mL (2.6-18.5)
--- NOTE | 2019-07-27 12:43 | NUR ---
DR OSCAR CALLED INSTRUCT BONE MARROW BIOPSY WILL BE DONE TUESDAY. INSTRUCT PT TOOK ELIQUIS AND PLAVIX 07/26/19. SHE STATES PT WANTS TO GO TO [facility] AND THATS OK. WILL CHECK TUESDAY TO SEE IF PT IS HERE.
[2019-07-27 13:11] VITALS: Ht 180.3 cm; Wt 82.6 kg
--- NOTE | 2019-07-27 14:14 | NUR ---
RESTING IN BED. DENIES NEEDS. WILL CONTINUE TO MONITOR.
[2019-07-27 14:33] VITALS: BP 112/52
--- NOTE | 2019-07-27 16:05 | NUR ---
RESTING IN BED. DENIES NEEDS. WILL CONTINUE TO MONITOR.
--- NOTE | 2019-07-27 17:40 | NUR ---
RESTING IN BED. DENIES NEEDS. WILL CONTINUE TO MONITOR.
[2019-07-27 18:02] VITALS: BP 120/68
[2019-07-27 20:00] VITALS: BP 119/75; BP 203/90
[2019-07-28] VITALS: BP 117/69
[2019-07-28 03:57] VITALS: BP 120/66
[2019-07-28 05:38] LABS: BASOPHILS 0.2 % (0-2); EOSINOPHILS 0 % (0-7); HEMATOCRIT 44.7 % (42.0-54.0); HEMOGLOBIN 15.8 g/dL (13.5-17.5); IMMATURE GRANULOCYTES 1.3 % (0-5); LYMPHOCYTES 15.1 % (15-50); MCH 30.5 pg (26.0-34.0); MCHC 35.3 g/dL (31.0-37.0); MCV 86.3 fL (80.0-100.0); MEAN PLATELET VOLUME 12.3 fL (7.4-10.4); MONOCYTES 6.5 % (2-11); NEUTROPHILS 76.9 % (40-80); RBC 5.18 10x6/uL (4.20-6.10); RDW 12.5 % (11.5-14.5)
[2019-07-28 05:42] LABS: PLATELET COUNT 65 10x3/uL (130-400)
[2019-07-28 06:03] LABS: ALBUMIN 2.7 g/dL (3.4-5.0); ALKALINE PHOSPHATASE 71 U/L (46-116); ALT (SGPT) 33 U/L (10-68); BILIRUBIN - TOTAL 0.39 mg/dL (0.2-1.3); CALC OSMOLALITY 272 mosm/kg (275-300); CALCIUM 8.5 mg/dL (8.5-10.1); CARBON DIOXIDE 24.7 mmol/L (21.0-32.0); CHLORIDE - SERUM 99 mmol/L (98-107); GLUCOSE 157 mg/dL (74-106); PROTEIN - SERUM 6.3 g/dL (6.4-8.2); SODIUM 132 mmol/L (136-145); UREA NITROGEN 27 mg/dL (7-18); eGFR NON AFRICAN AMERICAN 78 mL/min (90-120)
[2019-07-28 08:18] VITALS: BP 126/73
--- NOTE | 2019-07-28 10:00 | NUR ---
ATE MOST OF BREAKFAST. TOOK AM MEDS WITHOUT DIFFICULTY. IV LEAKING D/C WITH CATHETER INTACT. RESITED TO LEFT FOREARM AFTER ONE ATTEMPT 22G. UP TO SHOWER WITH SET UP ASSISTANCE. DENIES NEEDS.
--- NOTE | 2019-07-28 12:30 | NUR ---
LUNCH SERVED IN ROOM. FEEDS SELF WITH SET UP ASSISTANCE.
--- NOTE | 2019-07-28 12:50 | NUR ---
OFF UNIT VIA WC FOR TEST. FAMILY AT BEDSIDE.
--- NOTE | 2019-07-28 14:15 | NUR ---
RETURNED FROM IR. FAMILY AT BEDSIDE.
--- NOTE | 2019-07-28 14:30 | NUR ---
REQUESTED AND GIVEN 4MG MORPHINE SLOW IVP FOR C/O BACK PAIN LEVEL 7. WILL MONITOR.
--- NOTE | 2019-07-28 15:30 | NUR ---
REPORTS GOOD RELIEF WITH USE OF MORPHINE. DENIES NEEDS.
[2019-07-28 17:00] VITALS: BP 124/76
[2019-07-28 19:07] LABS: ADAMTS13 ACTIVITY 69.2 % (>66.8)
[2019-07-28 20:01] VITALS: BP 103/60
[2019-07-29] VITALS: BP 121/68
[2019-07-29 04:00] VITALS: BP 142/89
[2019-07-29 04:59] LABS: BASOPHILS 0 % (0-2); EOSINOPHILS 0 % (0-7); HEMATOCRIT 45.4 % (42.0-54.0); HEMOGLOBIN 16.1 g/dL (13.5-17.5); IMMATURE GRANULOCYTES 0.6 % (0-5); LYMPHOCYTES 13.1 % (15-50); MCH 30.4 pg (26.0-34.0); MCHC 35.5 g/dL (31.0-37.0); MCV 85.8 fL (80.0-100.0); MEAN PLATELET VOLUME 11.4 fL (7.4-10.4); MONOCYTES 4.3 % (2-11); RBC 5.29 10x6/uL (4.20-6.10); RDW 12.2 % (11.5-14.5); WBC 7.2 10x3/uL (4.8-10.8)
[2019-07-29 05:01] LABS: PLATELET COUNT 104 10x3/uL (130-400)
[2019-07-29 05:23] LABS: ALBUMIN 2.8 g/dL (3.4-5.0); ALKALINE PHOSPHATASE 63 U/L (46-116); ALT (SGPT) 35 U/L (10-68); BILIRUBIN - TOTAL 0.55 mg/dL (0.2-1.3); CALC OSMOLALITY 270 mosm/kg (275-300); CALCIUM 8.8 mg/dL (8.5-10.1); CHLORIDE - SERUM 99 mmol/L (98-107); GLUCOSE 136 mg/dL (74-106); PROTEIN - SERUM 6.3 g/dL (6.4-8.2); SODIUM 133 mmol/L (136-145); UREA NITROGEN 21 mg/dL (7-18); eGFR NON AFRICAN AMERICAN 78 mL/min (90-120)
--- NOTE | 2019-07-29 07:40 | NUR ---
AWAKE AND ALERT. ORIENTED X3. C/O NECK PAIN LEVEL 6. GIVEN 4MG MORPHINE SLOW IVP FOR SAME. WILL MONITOR. LUNGS ARE CLEAR BILATERALLY, NO COUGH NOTED. SKIN IS INTACT WITHOUT REDNESS. IV TO LEFT FOREARM IS PATENT WITHOUT REDNESS AT INSERTION SITE. DENIES NEEDS.
[2019-07-29 08:11] VITALS: BP 139/71
--- NOTE | 2019-07-29 09:00 | NUR ---
ATE MOST OF BREAKFAST. TOOK AM MEDS WITHOUT DIFFICULTY. DENIES NEEDS.
--- NOTE | 2019-07-29 12:30 | NUR ---
LUNCH SERVED IN ROOM. FAMILY AT BEDSIDE. DENIES NEEDS. NO C/O AT THIS TIME.
--- NOTE | 2019-07-29 13:49 | NUR ---
SHOWERED PER SELF. DENIES NEEDS. ATE MOST OF LUNCH. NO BM OF YET.
--- NOTE | 2019-07-29 18:11 | NUR ---
ATE ALL OF SUPPER BROUGHT IN FROM OUTSIDE. DENIES NEEDS. NO CHANGES NOTED.
[2019-07-29 18:32] VITALS: BP 141/79
[2019-07-29 20:00] VITALS: BP 115/67
[2019-07-30 04:00] VITALS: BP 145/86
[2019-07-30 06:18] LABS: BASOPHILS 0.1 % (0-2); EOSINOPHILS 0 % (0-7); HEMATOCRIT 44.7 % (42.0-54.0); HEMOGLOBIN 15.7 g/dL (13.5-17.5); IMMATURE GRANULOCYTES 1.7 % (0-5); MCH 30.4 pg (26.0-34.0); MCHC 35.1 g/dL (31.0-37.0); MCV 86.6 fL (80.0-100.0); MEAN PLATELET VOLUME 10.6 fL (7.4-10.4); MONOCYTES 5.2 % (2-11); RBC 5.16 10x6/uL (4.20-6.10); RDW 12.4 % (11.5-14.5); WBC 8.8 10x3/uL (4.8-10.8)
[2019-07-30 06:21] LABS: PLATELET COUNT 157 10x3/uL (130-400)
[2019-07-30 06:25] LABS: ALBUMIN 2.8 g/dL (3.4-5.0); ALKALINE PHOSPHATASE 84 U/L (46-116); BILIRUBIN - TOTAL 0.56 mg/dL (0.2-1.3); CALC OSMOLALITY 273 mosm/kg (275-300); CALCIUM 8.5 mg/dL (8.5-10.1); CARBON DIOXIDE 27.5 mmol/L (21.0-32.0); CHLORIDE - SERUM 100 mmol/L (98-107); CREATININE - SERUM 0.9 mg/dL (0.6-1.3); GLUCOSE 129 mg/dL (74-106); POTASSIUM - SERUM 4.9 mmol/L (3.5-5.1); PROTEIN - SERUM 6.1 g/dL (6.4-8.2); SODIUM 134 mmol/L (136-145); UREA NITROGEN 23 mg/dL (7-18); eGFR NON AFRICAN AMERICAN 89 mL/min (90-120)
[2019-07-30 06:28] LABS: ALT (SGPT) 47 U/L (10-68)
[2019-07-30 07:28] LABS: APTT 25.3 SECONDS (22.8-39.4); INR 1.03 (0.85-1.17)
[2019-07-30 11:14] LABS: APPEARANCE - CSF PINK
[2019-07-30 11:15] LABS: RBC - CSF 1150 cmm (0-0)
[2019-07-30 11:20] LABS: LYMPH - CSF 90 % (40-80); MONO - CSF 8 % (15-45); NEUT - CSF 2 % (0-6)
--- NOTE | 2019-07-30 11:23 | NUR ---
I have reviewed this patient and I concur with the Shift Assessment completed by the Licensed Practical Nurse today this shift.
--- NOTE | 2019-07-30 16:46 | MORECARE ---
CASE MANAGEMENT DISCHARGE SUMMARY PATIENT: LUIGI TERESA UNIT: [id number] ADM DATE: 07/26/19 AGE: 69 : 48 SEX: M ROOM/BED: D.2238 AUTHOR: NISHANT VALDOVINOS PHYSICIAN: REFERRING PHYSICIAN: SHANKAR SANDOVAL MD DATE OF SERVICE: 07/30/19 Discharge Plan Patient Name: LUIGI TERESA [facility] [facility] 1950 Planned Disposition: Home Anticipated Discharge Date: Discharge Date: Expected LOS: Initial Reviewer: [email or web address] Initial Review Date: 07/30/2019 Generated: 07/30/19 5:45 pm DCPIA - Discharge Planning Initial Assessment Updated by [email or web address]: Anisha Paris on 07/30/19 4:44 pm * Is the patient Alert and Oriented? Yes * How many steps to enter\exit or inside your home? 0/0 * PCP Dr. Sandoval * Pharmacy Dr. Ervin * Preadmission Environment Home with Family * ADLs Independent * Equipment None * List name and contact numbers for known caregivers / representatives who currently or will assist patient after discharge: Tyra Teresa * Verbal permission to speak to the caregivers and representatives has been obtained from the patient. Yes * Community resources currently utilized None * Additional services required to return to the preadmission environment? No * Can the patient safely return to the preadmission environment? Yes * Has this patient been hospitalized within the prior 30 days at any hospital? Yes Patient Name: LUIGI TERESA Page 46050 at 1646 All edits/amendments must be made on the electronic document DICTATION DATE: 07/30/191644 BROADCAST MAINTENANCE TECHNICIAN: DEMETRIA 07/30/191644 RPT#: [id number] DC DATE: STATUS: ADM IN [facility] [address] [place] [address] END OF REPORT
[2019-07-30 16:55] VITALS: BP 124/81
--- NOTE | 2019-07-30 19:20 | NUR ---
PT AMBULATING IN HALLWAY WITHOUT DIFFICULTY AT THIS TIME
--- NOTE | 2019-07-30 20:00 | NUR ---
PT STATES PAIN 5/10. GAVE NORCO ORDERED. REQUESTED AND GIVEN DULCOLAX FOR CONSTIPATION. AOX4, WITHOUT DISTRESS. IV LEFT FA INFUSING NS @ KVO. REFUSES MIDNIGHT VITALS STATING HE WOULD LIKE TO SLEEP. DENIES OTHER NEEDS. CL IN REACH, WILL CTM
[2019-07-30 20:15] VITALS: BP 119/67
[2019-07-31 05:14] VITALS: BP 124/69
[2019-07-31 06:17] LABS: BASOPHILS 0.2 % (0-2); EOSINOPHILS 0 % (0-7); HEMATOCRIT 45.1 % (42.0-54.0); HEMOGLOBIN 15.9 g/dL (13.5-17.5); IMMATURE GRANULOCYTES 2.9 % (0-5); MCH 30.4 pg (26.0-34.0); MCHC 35.3 g/dL (31.0-37.0); MCV 86.2 fL (80.0-100.0); MEAN PLATELET VOLUME 10.2 fL (7.4-10.4); MONOCYTES 4.8 % (2-11); NEUTROPHILS 85.1 % (40-80); RBC 5.23 10x6/uL (4.20-6.10); RDW 12.4 % (11.5-14.5)
[2019-07-31 06:31] LABS: PLATELET COUNT 231 10x3/uL (130-400); WBC 12.5 10x3/uL (4.8-10.8)
[2019-07-31 06:36] LABS: ALBUMIN 2.7 g/dL (3.4-5.0); ALKALINE PHOSPHATASE 71 U/L (46-116); ALT (SGPT) 52 U/L (10-68); BILIRUBIN - TOTAL 0.65 mg/dL (0.2-1.3); CALC OSMOLALITY 270 mosm/kg (275-300); CALCIUM 8.5 mg/dL (8.5-10.1); CARBON DIOXIDE 26.5 mmol/L (21.0-32.0); CHLORIDE - SERUM 99 mmol/L (98-107); GLUCOSE 120 mg/dL (74-106); POTASSIUM - SERUM 4.7 mmol/L (3.5-5.1); PROTEIN - SERUM 6.1 g/dL (6.4-8.2); SODIUM 133 mmol/L (136-145); UREA NITROGEN 23 mg/dL (7-18); eGFR NON AFRICAN AMERICAN 78 mL/min (90-120)
[2019-07-31 08:37] VITALS: BP 131/83
[2019-07-31 11:41] VITALS: BP 128/70
--- NOTE | 2019-07-31 14:10 | NUR ---
PT IS WITHOUT DISTRESS.FAMILY AT BEDSIDE
[2019-07-31 15:40] VITALS: BP 118/60
[2019-07-31 20:43] VITALS: BP 119/62
--- NOTE | 2019-07-31 22:20 | NUR ---
A/O WITH NO SIGNS OF ACUTE DISTRESS. IV TO THE LT FOREARM WITH NO REDNESS OR SWELLING NOTED. COMPLAINING OF 4/10 PAIN IN BACK. REQUESTED FOR PRN MED FOR PAIN. NORCO 10 WAS ORDERED AND PT IS ALLERGIC TO HYDROCODONE. CALLED VIBRATING SCREED OPERATOR MARIA ISABEL CHOI. GAVE ORDERS FOR 100MG OF ULRRAM. PULLED 50MG ULTRAM TO GIVE A DOSE OF 100MG. WILL START 100MG AT NEXT SCHEDULED TIME. PT GOT UP AND WALKED ONE LAP AROUND UNIT. PT HAS ALSO REQUESTED TO SKIP MIDNIGHT VITALS. DENIES OTHER NEEDS AT THIS TIME. CONTINUE WITH PLAN OF CARE.
[2019-08-01 05:02] VITALS: BP 142/80
[2019-08-01 05:40] LABS: BASOPHILS 0.2 % (0-2); EOSINOPHILS 0.1 % (0-7); HEMATOCRIT 43.7 % (42.0-54.0); HEMOGLOBIN 15.3 g/dL (13.5-17.5); IMMATURE GRANULOCYTES 5.1 % (0-5); LYMPHOCYTES 8.8 % (15-50); MCH 30.4 pg (26.0-34.0); MCV 86.9 fL (80.0-100.0); MEAN PLATELET VOLUME 9.9 fL (7.4-10.4); MONOCYTES 6.7 % (2-11); NEUTROPHILS 79.1 % (40-80); PLATELET COUNT 263 10x3/uL (130-400); RBC 5.03 10x6/uL (4.20-6.10); RDW 12.4 % (11.5-14.5); WBC 14.9 10x3/uL (4.8-10.8)
[2019-08-01 06:10] LABS: ALBUMIN 2.7 g/dL (3.4-5.0); ALKALINE PHOSPHATASE 76 U/L (46-116); ALT (SGPT) 58 U/L (10-68); BILIRUBIN - TOTAL 0.56 mg/dL (0.2-1.3); CALC OSMOLALITY 271 mosm/kg (275-300); CALCIUM 8.1 mg/dL (8.5-10.1); CARBON DIOXIDE 28.9 mmol/L (21.0-32.0); CHLORIDE - SERUM 100 mmol/L (98-107); GLUCOSE 89 mg/dL (74-106); PROTEIN - SERUM 5.7 g/dL (6.4-8.2); SODIUM 135 mmol/L (136-145); UREA NITROGEN 22 mg/dL (7-18); eGFR NON AFRICAN AMERICAN 78 mL/min (90-120)
--- NOTE | 2019-08-01 07:12 | NUR ---
REC'D IN BED AWAKE AND ALERT. RESP EVEN AND UNLABORED WITH NO DISTRESS NOTED. CAN EXPRESS NEEDS AND WANTS. NO C/O NOTED OR VOICED. ASSESSMENT COMPLETED. C/L IN REACH AT BEDSIDE.
[2019-08-01 08:22] VITALS: BP 164/74
[2019-08-01 11:05] VITALS: BP 120/78
--- NOTE | 2019-08-01 14:37 | NUR ---
NUTRITION F/U CHART REVIEWED. PT TOLERATING REG DIET WITH 75 TO 100% INTAKE RECENT MEALS. WILL CONTINUE TO PROVIDE DIET, HONOR FOOD PREFERENCES. RD FOLLOWING
[2019-08-01] MEDS ORDERED: DULCOLAX5 MG PO (14:54)
[2019-08-01] MEDS ORDERED: MONODOX100 MG PO (14:55)
--- NOTE | 2019-08-01 15:08 | NUR ---
I have reviewed this patient and I concur with the Shift Assessment completed by the Licensed Practical Nurse today this shift.
--- NOTE | 2019-08-01 19:15 | NUR ---
LYING IN BED. ALERT AND ORIENTED X4. DENIES PAIN. RESP EVEN AND NONLABORED. BRUISES NOTED TO LUE. NS@ 10 ML/HR INFUSING IN LT FOREARM WITHOTU DIFF. STATES HE CAN GO HOME TOMORROW IF HE HAS A BM. BS PRESENT X4 QUADS. DRSG NOTED TO BACK. AMBULATORY. SR ELEVATED X2. CL IN REACH.
[2019-08-01 20:34] VITALS: BP 102/69
--- NOTE | 2019-08-01 21:00 | NUR ---
REQUESTS THAT 2400 VITAL SIGNS NOT BE TAKEN BECAUSE HE WANTS TO SLEEP.
--- NOTE | 2019-08-02 03:52 | NUR ---
HAS RESTED WELL SO FAR THIS SHIFT. RATES PAIN 2 IN BACK. STATES HE FEELS LIKE HE MAY HAVE A BM SOON. CL IN REACH. DENIES NEEDS.
[2019-08-02 05:12] VITALS: BP 131/87
--- NOTE | 2019-08-02 06:00 | NUR ---
STATES HE HAD A BM THIS MORNING BUT NOT SEEN BY STAFF. STATES HE HOPES HE CAN GO HOME TODAY.
[2019-08-02 06:15] LABS: BASOPHILS 0.3 % (0-2); EOSINOPHILS 0.1 % (0-7); HEMOGLOBIN 16.1 g/dL (13.5-17.5); IMMATURE GRANULOCYTES 5.9 % (0-5); LYMPHOCYTES 10.5 % (15-50); MCH 30.4 pg (26.0-34.0); MCV 86.8 fL (80.0-100.0); MEAN PLATELET VOLUME 9.4 fL (7.4-10.4); MONOCYTES 6.9 % (2-11); NEUTROPHILS 76.3 % (40-80); PLATELET COUNT 296 10x3/uL (130-400); RDW 12.7 % (11.5-14.5)
[2019-08-02 06:27] LABS: ALBUMIN 2.9 g/dL (3.4-5.0); ALKALINE PHOSPHATASE 70 U/L (46-116); ALT (SGPT) 66 U/L (10-68); BILIRUBIN - TOTAL 0.71 mg/dL (0.2-1.3); CALC OSMOLALITY 268 mosm/kg (275-300); CALCIUM 8.3 mg/dL (8.5-10.1); CARBON DIOXIDE 32.6 mmol/L (21.0-32.0); CHLORIDE - SERUM 97 mmol/L (98-107); GLUCOSE 79 mg/dL (74-106); POTASSIUM - SERUM 5.6 mmol/L (3.5-5.1); PROTEIN - SERUM 6.2 g/dL (6.4-8.2); SODIUM 133 mmol/L (136-145); UREA NITROGEN 23 mg/dL (7-18); eGFR NON AFRICAN AMERICAN 78 mL/min (90-120)
--- NOTE | 2019-08-02 07:10 | NUR ---
ALERT AND ORIENTED, IN BATHROOM. NO C/O PAIN. NO S/S OF ACUTE DISTRESS NOTED. IV TO LEFT FOREARM, SL. SITE PATENT WITHOUT REDNESS OR SWELLING. PT DENIES ANY NEEDS AT THIS TIME. CALL LIGHT IN REACH. WILL CONTINUE TO MONITOR.
[2019-08-02 08:34] VITALS: BP 137/80
--- NOTE | 2019-08-02 10:08 | NUR ---
DISCHARGED PATIENT HOME WITH VIA WHEELCHAIR. NO C/O PAIN. NO S/S OF ACUTE DISTRESS NOTED. WENT OVER DISCHARGE INSTRUCTIONS WITH PATIENT, PATIENT VERBALIZED UNDERSTANDING. PATIENT DENIES ANYTHING FURTHER. DISCONTINUED IV, CATHETER TIP INTACT.
--- NOTE | 2019-08-03 16:52 | MORECARE ---
CASE MANAGEMENT DISCHARGE SUMMARY PATIENT: LUIGI TERESA UNIT: [id number] ADM DATE: 07/26/19 AGE: 69 : 49 SEX: M ROOM/BED: D.2238 AUTHOR: BONIFACIO,DOC PHYSICIAN: REFERRING PHYSICIAN: SHANKAR SANDOVAL MD DATE OF SERVICE: 08/03/19 Discharge Plan Patient Name: LUIGI TERESA Facility: [facility]:[place] : 1950 Planned Disposition: Home Anticipated Discharge Date: Discharge Date: 08/02/2019 Expected LOS: 0 Initial Reviewer: [id number] Initial Review Date: 07/30/2019 Generated: 08/03/19 5:52 pm Comments DCP- Discharge Planning Updated by [email or web address]: Anisha Paris on 07/30/19 3:[address] Patient Name: LUIGI TERESA Admission Status: Elective Accout number: [id number] Admission Date: 07-26-2019 : 1950 Admission Diagnosis:OTHER SECONDARY THROMBOCYTOPENIA Attending: SHANKAR SANDOVAL Current LOS: 4 Anticipated DC Date: Planned Disposition: Home Primary Insurance: MEDICARE A & B Discharge Planning Comments: CM met with patient to complete initial dc planning assessment. CM educated patient on the CM role and verbal consent given by patient to complete assessment. Patient lives at home with his . At discharge patient plans to return and feels this is a safe discharge. CM discussed availability of home health, rehab services, and medical equipment. Patient denied known discharge needs at this time. CM will continue to follow and will assist as needed with dc plans/needs. Sec Accountant: Anisha Paris DCPIA - Discharge Planning Initial Assessment Updated by [email or web address]: Anisha Paris on 07/30/19 4:44 pm * Is the patient Alert and Oriented? Yes * How many steps to enter\exit or inside your home? 0/0 * PCP Dr. Sandoval * Pharmacy Dr. Ervin * Preadmission Environment Home with Family * ADLs Independent * Equipment None * List name and contact numbers for known caregivers / representatives who currently or will assist patient after discharge: Tyra Teresa * Verbal permission to speak to the caregivers and representatives has been obtained from the patient. Yes * Community resources currently utilized None * Additional services required to return to the preadmission environment? No * Can the patient safely return to the preadmission environment? Yes * Has this patient been hospitalized within the prior 30 days at any hospital? Yes Coverage Notice Reviewer: [email or web address] Thom Paris Notice Issued Date-Time: 08/01/2019 15:07 Notice Type: IM Discharge Notice Notice Delivered To: Patient Relationship to Patient: Self Manufacturing Engineer Assembly Name: Delivery Method: HAND - Hand Delivered Brittnee Days: Prior Verbal Notification: Recipient Understood Notice: Yes Recipient Signature: Yes Med Rec Note Co-signed by Attending: Coverage Notice Comment: IMM explained, signed, given, copy placed in Mr Last DP export: 07/30/19 3:46 p Patient Name: LUIGI TERESA Page [id number] at 1652 All edits/amendments must be made on the electronic document DICTATION DATE: 08/03/191651 SUPPORT ARCHITECT: DEMETRIA 08/03/191651 RPT#: [id number] DC DATE:08/02/19 STATUS: DIS IN [facility] [address] [place] [address] END OF REPORT
== END 2019-08-02 10:09 | disposition home or self-care (01) | DRG 804 ==
LOC: D.MS 10:15
PROVIDERS: Internal Medicine Hematology & Oncology; Specialist; ADMIT Family Medicine; ATTEND Family Medicine
PROC: 009U3ZX Drainage of Spinal Canal, Percutaneous Approach, Diagnostic (ICD-10-PCS; 2019-07-30)
PROC: B01BZZZ Fluoroscopy of Spinal Cord (ICD-10-PCS; 2019-07-30)
PROC: 0QB33ZX Excision of Left Pelvic Bone, Percutaneous Approach, Diagnostic (ICD-10-PCS; principal; 2019-07-30 09:01)
PROC: 07DR3ZX Extraction of Iliac Bone Marrow, Percutaneous Approach, Diagnostic (ICD-10-PCS; 2019-07-30 09:01)
DX: D69.59 Other secondary thrombocytopenia (principal); T36.8X5A Adverse effect of other systemic antibiotics, initial encounter; D75.1 Secondary polycythemia; D72.819 Decreased white blood cell count, unspecified; M51.16 Intervertebral disc disorders with radiculopathy, lumbar region; D75.89 Other specified diseases of blood and blood-forming organs

== ENCOUNTER → 2019-08-27 17:08 | Outpatient (CLI) | payer MEDICARE, OTHER ==
[2019-07-27 13:11] VITALS: BMI 25.3
[~2019-08-27 17:08] MED LIST changes: +DECADRON4 MG PO; +DULCOLAX5 MG PO; +MONODOX100 MG PO
[2019-08-27 17:46] LABS: LDL-HDL RATIO 2.6 ratio (1.5-3.5)
== END | disposition home or self-care (01) ==
LOC: D.LABREF 17:08
PROVIDERS: ATTEND Internal Medicine Interventional Cardiology
DX: E78.5 Hyperlipidemia, unspecified (principal)

== ENCOUNTER 2019-10-23 12:36 | Observation (INO) | payer MEDICARE, OTHER ==
[~2019-10-23] VITALS: Ht 180.3 cm; Wt 86.6 kg
--- NOTE | ~2019-10-23 | HEMODYNAMI ---
PATIENT:LUIGI BORJA MEDICAL RECORD: [id number] : 48 LOCATION:[facility] [place] D.2123 ADMISSION DATE: 10/23/19 Generatedon:10/24/201911:15 Patient name: LUIGI BORJA Patient #: [id number] : 1950 Date of study: 10/24/2019 Page: Of Hemodynamic Procedure Report Patient Data Patient Demographics Procedure consent was obtained First Name: LUIGI Gender: Male Last Name: JONH : 1950 Middle Initial: M Age: 69 year(s) Patient #: [id number] Race: SSN: [id number] Additional ID: [id number] Contact details [address]: [address] [place] [address] State: [place] City: [place] Zip code: [address] Past Medical History Allergies Allergen Reaction Date Comments Reported Penicillins 02/17/2015 Other allergy 02/17/2015 Feldene Lipitor 02/17/2015 Other allergy 02/17/2015 Meropenem Other allergy 02/04/2017 PCN, Feldene, Statins,Meropenen Other allergy 01/31/2018 Feldene, PCN, Lipitor, Hydrocodone, Vicodin, Meropenen, Effient, Crestor. Other allergy 10/13/2018 CRESTOR, FELDENE, LIPITOR, MEROPENEM, PCN Other allergy 01/19/2019 CRESTOR, FELDENE, LIPITOR, MEROPENEM, PCN Other allergy 05/25/2019 CRESTOR, FELDENE, LIPITOR, MEROPENEM, PCN Admission Admission Data Admission Date: 10/23/2019 Admission Time: 13:38 Arrival Date: 10/24/2019 Arrival Time: 0:00 Admit Source: Other Insurance Payor: Medicare Room #: D.2123 [facility] #: [id number] Height (in.): 71 BSA: 2.07 (m2) Height (cm.): 180.34 BMI: 26.64 (kg/m2) Weight (lbs.): 191 Weight (kg.): 86.64 Lab Results Lab Result Date: 10/24/2019 Lab Result Time: 0:00 Biochemistry Name Units Result Min Max BUN mg/dl 8 --(*---)-- 7 18 CK-MB ng/ml 0.2 --(*---)-- 0 3.6 Creatinine mg/dl 1.2 --(---*)-- 0.6 1.3 eGFR ml/min 64.09415 *-(----)-- 90 120 NONAFRICAN Troponin l ng/ml 0.017 --(-*--)-- 0 0.06 CBC Name Units Result Min Max Hematocrit % 46.8 --(-*--)-- 42 54 Hemoglobin g/dl 16.2 --(--*-)-- 13.5 17.5 Procedure Procedure Types Cath Procedure Diagnostic Procedure LHC LHC w/Coronaries w/Grafts Sedation Charges Moderate Sedation up to 15 minutes PCI Procedure AMI/SVG/REAR ADMIRAL PTCA or Stent SVG-BMS/VANDANA Initial Hemochron ACT Test Procedure Description Procedure Date Procedure Date: 10/24/2019 Procedure Start Time: 10:44 Procedure End Time: 11:13 Procedure Staff Name Function Leandro Montemayor MD Performing Physician Maciej Gurrola RT Monitor Allison Yi RN Nurse Luisa Warner RT Scrub Indication Chest pain Procedure Data Cath Procedure Fluoroscopy Diagnostic fluoroscopy Total fluoroscopy Time: 4.8 time: 4.8 min min Diagnostic fluoroscopy Total fluoroscopy dose: dose: 1268 mGy 1268 mGy Contrast Material Contrast Material Type Amount (ml) Isovue 300 146 Entry Location Entry Primary Successful Side Size Upsize Upsize Entry Closure Succes sful Closure Location (Fr) 1 (Fr) 2 (Fr) Remarks Device Remarks Femoral Right 5 Fr 6 Fr Exoseal artery Short Estimated blood loss: 10 ml Diagnostic catheters Device Type Used For End Catheter Placement MULTIPACK JL 4.0 5Fr Procedure catheter MULTIPACK 3DRC 5Fr Procedure catheter MULTIPACK Pigtail 5 Fr Procedure catheter Procedure Complications No complications Procedure Medications Medication Administration Route Dosage 0.9% NaCl I.V. 100 ml/hr Oxygen etCO2 Nasal cannula 2 l/min Lidocaine 2% added to field 20 Heparin Flush Bag added to field 2 bags (1000units/500ml NS) Versed I.V. 2 mg Fentanyl I.V. 50 mcg Fentanyl I.V. 50 mcg Heparin Bolus I.V. 4000 units Cardene I.V. 300 mcg Integrilin (Bolus I.C. 4 ml 2mg/ml) Integrilin (Bolus wasted 2 ml 2mg/ml) Integrilin (Bolus I.C. 4 ml 2mg/ml) Plavix P.O. 75 mg Versed I.V. 2 mg Hemodynamics Rest BSA: 2.07 (m2) HGB: 16.2 (g/dl) O2 Consumption: Estimated: 246.03 (ml/min) O2 Co nsumption indexed: Estimated:118.86 (ml/min/m) Heart Rate: 78 (bpm) Pressure Samples Time Site Value (mmHg) Purpose Heart Use Rate(bpm) 10:52 LV 120/6,10 Snapshot 76 10:53 AO 115/64(88) Pullback 80 10:53 LV 119/6,10 Pullback 80 Gradients Valve Time Site 1 Site 2 Mean SEP/DFP Peak To Heart Use (mmHg) (sec/min) Peak Rate (mmHg) (bpm) Aortic 10:53 LV AO 7 18 4 80 119/6,10 115/64(88) Calculations Valve P-P Mean Valve Index Valve Source Name Gradient Area Flow (cm2) Aortic 4 7 4 7 Snapshots Pre Cath Intra NCS Post Cath Vital Signs Time Heart Resp SPO2 etCO2 NIBP (mmHg) Rhythm Pain Sedation Rate (ipm) (%) (mmHg) Status Level (bpm) 10:36:43 78 11 100 33.7 149/90(133) NSR 0 (11) 10(A) , No pain 10:40:55 79 15 99 30 125/85(103) NSR 0 (11) 10(A) , No pain 10:45:07 79 19 99 38.2 131/82(111) NSR 0 (11) 10(A) , No pain 10:49:19 75 13 98 21.7 123/83(100) NSR 0 (11) 10(A) , No pain 10:53:31 76 15 98 38.2 123/75(107) NSR 0 (11) 9(A) , No pain 10:57:45 77 15 96 35 120/73(97) NSR 0 (11) 9(A) , No pain 11:01:53 76 28 96 32.9 114/66(99) NSR 0 (11) 9(A) , No pain 11:06:03 81 31 97 16.4 94/67(79) NSR 0 (11) 10(A) , No pain 11:10:04 82 13 98 14.9 112/71(84) NSR 0 (11) 10(A) , No pain Medications Time Medication Route Dose Verified Delivered Reason Notes Effectiveness by by 10:35:01 Plavix P.O. 75 mg Leandro Allison for [facility] Ajay Yi antiplatelet RN therapy 10:35:40 0.9% NaCl I.V. 100 Leandro Allison used for ml/hr AlbinaAjay Yi procedure MD ATKINS 10:35:46 Oxygen etCO2 2 Leandro Allison used for Nasal l/min [place] procedure cannula MD ATKINS 10:35:51 Lidocaine 2% added 20ml Leandro Lundory for local to vial [facility] anesthetic field MD CHOI 10:35:54 Heparin Flush added 2 Leandro Leandro used for Bag to bags [facility] procedure (1000units/500ml field MD CHOI NS) 10:42:17 Versed I.V. 2 mg Leandro Allison for sedation St Ajay Yi MD, RN 10:42:24 Fentanyl I.V. 50 Leandro Allison for sedation mcg St Ajay Yi MD, RN 10:47:18 Fentanyl I.V. 50 Leandro Allison for sedation [facility] [place] [place] [facility] Ajay Yi MD, RN 10:47:20 Versed I.V. 2 mg Leandro Allison for sedation St Ajay Yi MD, RN 10:58:22 Heparin Bolus I.V. 4000 Leandro Allison for verif ied units [facility] anticoagulation with Dr. MD ATKINS [place] 10:58:39 Cardene I.V. 300 Leandro Allison for mcg St Ajay schneider MD, RN 10:58:55 Integrilin I.C. 4 ml Leandro Allison for (Bolus 2mg/ml) St Ajay Yi antiplatelet RN therapy 10:59:03 Integrilin wasted 2 ml Leandro Allison for (Bolus 2mg/ml) St Ajay Yi antiplatelet RN therapy 11:04:54 Integrilin I.C. 4 ml Leandro Allison for (Bolus 2mg/ml) Albina Kd benitez MD RN therapy Procedure Log Time Note 10::23 Diagnostic Cath Status : Urgent 10:20:47 Indication : Chest pain 10:20:53 Procedure Status Urgent Heart Cath (IP). 10:20:56 Maciej CONRAD(R) sent for patient. Start room use. 10::58 Time tracking: Call back (After hours or weekends) 10:21:02 Plan of Care:Hemodynamics will remain stable., Cardiac rhythm will remain stable., Comfort level will be maintained., Respiratory function will remain adequate., Patient/ family verbilizes understanding of procedure., Procedure tolerated without complication., Recovers from procedure without complications.. 10::21 H&P Date Dictated: 10/23/2019 Emergent; H&P N/A, Within 30 days and on chart.. 10::53 Lab Result : BUN 8 mg/dl 10::53 Lab Result : Creatinine 1.2 mg/dl 10::53 Lab Result : CK-MB 0.2 ng/ml 10::53 Lab Result : Troponin l 0.017 ng/ml 10::53 Lab Result : eGFR NONAFRICAN 64.89810 ml/min 10::53 Lab Result : Hemoglobin 16.2 g/dl 10::53 Lab Result : Hematocrit 46.8 % 10::58 Lab results completed and on chart. 10:23:02 Stress Test: no; N/A ? 10:23:24 Admit Source: Other 10::26 Arrival Date: 10/24/2019 12:00:00 AM 10:23:36 Patient Height : 71 inches 10:23:42 Patient Weight : 191 lbs 10:24:14 Insurance Payor : Medicare 10:26:41 Risk of blood transfusion: 0.2 10:26:44 Risk of MARLEEN: 2.8 10:26:52 Patient received from Med II to CCL 1 Alert and oriented. Tansferred to table in Supine position. 10:26:53 Warm blankets applied, and kailee hugger turned on for patient comfort. 10:26:56 Signed procedure consent form obtained from patient. 10:26:57 Correct patient and procedure confirmed by team. 10:26:57 ECG and BP/O2 sat monitors applied to patient. 10:28:13 Alarms reviewed by RCourtney N. 10:28:13 Sharps counted by scrub and verified by R.N. 10:28:24 Right groin area was prepped with chlora-prep and draped in sterile fashion 10:28:28 Risk of Mortality: 0.3 10:29:11 IV patent on arrival in left hand with 0.9% NaCl at [facility]. 10:29:21 Patient pain scale 0/10 ?. 10:29:30 Snore? Yes 10:29:32 Sleep apnea? Yes 10:29:33 Deviated septum? No 10:29:34 Opens mouth fully? Yes 10:29:35 Sticks out tongue? Yes 10:29:38 Airway obstruction? No ? 10:29:40 Dentures? No ? 10:29:43 ----Pre-sedation anethsthesia assessment.---- 10:29:48 Previous problem with sedation/anesthesia? No ? 10:30:02 Family in waiting room. 10:30:04 Patient NPO since Midnight. 10:30:13 Is the patient allergic to Iodine/contrast media? No. 10:30:14 Was the patient premedicated? Yes 10:30:15 Is patient on blood thinner?Yes 10:30:21 ACC The patient was administered the following blood thiners within the last 24 hours: ACCPlavix, Eliquis 10:30:26 Patient diabetic? No. 10:30:28 If diabetic: On Metformin? N/A 10:30:29 Pre-procedure instructions explained to patient. 10:30:30 Pre-op teaching completed and patient verbalized understanding. 10:30:35 Full Disclosure recording started 10:35:01 Plavix 75 mg P.O. was administered by Allison Yi RN; for antiplatelet therapy; Verbal order read back and verified. 10:35:32 Vital chart was started 10:35:40 0.9% NaCl 100 ml/hr I.V. was administered by Allison Yi RN; used for procedure; Verbal order read back and verified. 10:35:46 Oxygen 2 l/min etCO2 Nasal cannula was administered by Allison Yi RN; used for procedure; Verbal order read back and verified. 10:35:51 Lidocaine 2% 20ml vial added to field was administered by Leandro Montemayor MD; for local anesthetic; Verbal order read back and verified. 10:35:54 Heparin Flush Bag (1000units/500ml NS) 2 bags added to field was administered by Leandro Montemayor MD; used for procedure; Verbal order read back and verified. 10:37:42 Baseline sample Acquired. 10:37:45 Rhythm: sinus rhythm 10:37:59 Pre procedure: right dorsailis pedis pulse 1+ Palpable, but thready & weak; easily obliterated 10:38:08 Use device set Femoral Dx 10:38:09 ACIST Hand Control (25362) opened to sterile field. 10:38:10 ACIST Manifold (46106) opened to sterile field. 10:38:11 ACIST Syringe (13360) opened to sterile field. 10:38:11 Bag Decanter (2002S) opened to sterile field. 10:38:12 Medline Cath Pack ([id number]) opened to sterile field. 10:38:15 Tegaderm 4 x 4 (1626W) opened to sterile field. 10:38:15 DIAGNOSTIC Multipack 5Fr catheter set (MC2733) opened to sterile field. 10:38:16 SHEATH 5FR [place] (YMK051) opened to sterile field. 10:38:17 EMERALD Guide Wire (376-876) opened to sterile field. 10:41:01 Physician arrived 10:41:02 --------ALL STOP TIME OUT------ 10:41:02 Final Timeout: patient, procedure, and site verified with staff and physician. All members of the team are in agreement. 10:41:04 Right groin site verified by team. 10:41:09 Fire Safety Assessment: A--An alcohol-based skin anteseptic being used preoperatively., C--Open oxygen or nitrous oxide is being used., D--An ESU, laser, or fiber-optic light is being used. 10:41:11 Physical assessment completed. ASA score P 2 - A patient with mild systemic disease as per Leandro Montemayor MD. 10:41:14 2) 60-89 Mildly reduced kidney function, and other findings (as for stage 1) point to kidney disease. 10:41:17 Maximum allowable contrast dose (3.7 X eGFR X 0.75)178 ml. 10:41:21 Sedation plan: IV Moderate Sedation Medication:Versed, Fentanyl 10:42:17 Versed 2 mg I.V. was administered by Allison Yi RN; for sedation; Verbal order read back and verified. 10:42:24 Fentanyl 50 mcg I.V. was administered by Allison Yi RN; for sedation; Verbal order read back and verified. 10:44:30 Procedure started. 10:44:33 Local anesthetic to right femoral artery with Lidocaine 2% by Leandro Montemayor MD.INITIAL ACCESS ONLY 10:46:00 A 5 Fr sheath was inserted into the Right Femoral artery 10:46:09 A MULTIPACK JL 4.0 5Fr catheter was advanced over the wire and used for Procedure. 10:47:05 LCA angiography performed. 10:47:09 Zero performed for pressure channel P1 10:47:14 Zero performed for pressure channel P1 10:47:18 Fentanyl 50 mcg I.V. was administered by Allison Yi RN; for sedation; Verbal order read back and verified. 10:47:20 Versed 2 mg I.V. was administered by Allison Yi RN; for sedation; Verbal order read back and verified. 10:47:23 Catheter removed. 10:47:28 A MULTIPACK 3DRC 5Fr catheter was advanced over the wire and used for Procedure. 10:48:05 RCA angiography performed. 10:48:08 ACCDominant side:Co-Dominant 10:49:12 SVG to Circ angiography performed. 10:49:36 SVG to Diag occluded. 10:51:28 EDWARDS to LAD angiography performed. 10:51:30 Catheter removed. 10:51:54 A MULTIPACK Pigtail 5 Fr catheter was advanced over the wire and used for Procedure. 10:52:55 LV angiography performed. 10:52:56 LV gram done using ZIMMERMAN 10:52:58 LV hemodynamics recorded. 10:53:10 EF : 50 % 10:53:14 Injector settings: Ml/sec: 10, Volume: 20, 10:53:16 Catheter removed. 10:53:[address] [facility]AP[facility]O PCI 10:53:21 SHEATH 6FR [place] (FAW694) opened to sterile field. 10:53:26 WHISPER 300cm guide wire ([id number]) opened to sterile field. 10:53:27 INFLATOR Merit BasixCompak (ON3324) opened to sterile field. 10:54:48 GUIDE 6FR JR 4.0 catheter ([id number]) opened to sterile field. 10:55:09 Sheath upsized to a 6 Fr Short. 10:55:16 6 Fr JR 4 guide catheter was inserted over the wire 10:55:24 Pre PCI Site: Vein Graft Circ has 80% stenosis. 10:55:27 ACC Pre-intervention CHRISTIE Flow is 3. 10:56:04 Whisper wire advanced. 10:58:22 Heparin Bolus 4000 units I.V. was administered by Allison Yi RN; for anticoagulation; verified with Dr. Rodriguez Verbal order read back and verified. 10:58:39 Cardene 300 mcg I.V. was administered by Allison Yi RN; for vasodilation; Verbal order read back and verified. 10:58:55 Integrilin (Bolus 2mg/ml) 4 ml I.C. was administered by Allison Yi RN; for antiplatelet therapy; Verbal order read back and verified. 10:59:03 Integrilin (Bolus 2mg/ml) 2 ml wasted was administered by Allison Yi RN; for antiplatelet therapy; Verbal order read back and verified. 11:01:22 Wire advanced across lesion. 11:04:22 Place stent Inflation Number: 1 A INTEGRITY RX 3.5 x 15 stent ([id number]) was prepped and advanced across the Aorta Left -> Dist CX 80. The stent was deployed at 14 [place]ON for 0:30 (min:sec) 0. 11:04:54 Integrilin (Bolus 2mg/ml) 4 ml I.C. was administered by Allison Yi RN; for antiplatelet therapy; Verbal order read back and verified. 11:06:57 Post PCI Site: Vein Graft Circ has 0% stenosis. 11:07:00 ACC Post-intervention CHRISTIE Flow is 3. 11:07:02 Stent catheter was removed intact over wire. 11:07:03 Wire removed. 11:07:03 Guide catheter removed. 11:07:05 EXOSEAL 6Fr (EX600) opened to sterile field. 11:07:15 Sheath removed intact; hemostasis achieved with Exoseal to the Right Femoral artery. 11:07:17 Procedure ended.(Physican Out) 11:07:59 Fluoroscopy time 04.80 minutes. 11:08:03 Fluoroscopy dose: 1268 mGy 11:08:03 Flurop Dose total: 1268 11:08:08 Dose Area Product 08844 mGy/cm. 11:08:13 Contrast amount:Isovue 300 146ml. 11:08:15 Maximum allowable dose exceeded? No. 11:08:16 Sharps counted by scrub and verified by R.N. 11:08:18 Insertion/operative site no bleeding no hematoma. 11:08:22 Post-op/insertion site Right Femoral artery dressed using a 4 x 4 and Tegaderm. 11:08:24 Post Procedure Pulses reassessed and unchanged 11:08:27 Post-procedure physical assessment completed. ASA score P 2 - A patient with mild systemic disease as per Leandro Montemayor MD. 11:08:30 Post procedure rhythm: unchanged. 11:08:35 Estimated blood loss: 10 ml 11:08:36 Post procedure instruction explained to patient.Patient verbalizes understanding. 11:08:37 Patient needs reinforcement of post procedure teaching. 11:09:04 Procedure type changed to Cath procedure, Diagnostic procedure, C, [facility] w/Coronaries w/Grafts, Sedation Charges, Moderate Sedation up to 15 minutes, PCI procedure, AMI/SVG/REAR ADMIRAL PTCA or Stent, SVG-BMS/VANDANA Initial, Hemochron ACT Test 11:09:06 Procedure and supply charges have been captured, reviewed, submitted and are correct. 11:09:12 Procedure Complication : No complications 11:10:35 ACT drawn and resulted at 267 seconds. (normal therapeutic range 180-240 seconds). 11:13:05 Vital chart was stopped 11:13:07 [facility] Findings: MVD- PCI performed (see procedure note) 11:13:09 Operative report dictated upon procedure completion. 11:13:09 See physician's report for complete and final results. 11:13:12 Report given to PCU. 11:13:14 Patient transfered to PCU with Bed. 11:13:16 Procedure ended. 11:13:16 Full Disclosure recording stopped 11:13:19 End room use (Document Last) 11:13:30 End room use (Document Last) 11:15:14 End room use (Document Last) Intervention Summary Intervention Notes Time ActionType Lesion and Equipment Action# Pressure Duration Attributes Used 11:04:22 Place stent Aorta Left INTEGRITY RX 1 14 00:30 -> Dist CX 3.5 x 15 stent ([id number]) Device Usage Item Name Manufacture Quantity Catalog Hospital Part Current Minimal Lot# / Number Charge Number Stock Stock Serial# Code ACIST Hand Acist 1 66535 457319 857450 874101 5 Control Medical (88488) Systems Inc ACIST Acist 1 62481 215854 779499 940292 5 Manifold Medical (97912) Systems Inc ACIST Acist 1 26643 040308 442650 477880 20 Syringe Medical (24170) Systems Inc Bag Decanter Microtek 1 2001S 019530 63273 251681 5 (2001S) Medical Inc. Medline Cath Medline 1 [id number] 518715 51575 075033 5 Pack ([id number]) Tegaderm 4 x 3M 1 1626W 661016 801610 552778 5 4 (1626W) DIAGNOSTIC Cardinal 1 AK6502 946745 97618 567932 30 TheMarkets 5Fr catheter set (EF0356) SHEATH 5FR Terumo 1 CMF784 281357 337997 499868 5 [place] (TMZ952) EMERALD Cardinal 1 502-455 656918 758530 523491 5 Guide Wire Health (502-455) MULTIPACK JL Cardinal 1 487922 5 4.0 5Fr Health catheter MULTIPACK Cardinal 1 482853 5 3DRC 5Fr Health catheter MULTIPACK Cardinal 1 781871 5 Pigtail 5 Fr Health catheter SHEATH 6FR Terumo 1 LQP420 097359 380364 749317 40 [place] (JQK350) WHISPER Matias 1 [id number] 208116 658369 272568 5 300cm guide Vascular wire ([id number]) INFLATOR Merit 1 MC2565 453594 987979 198132 15 Peeridea Medical BasixCompak (ZY0530) GUIDE 6FR JR Medtronic 1 IZ2TR41 031078 14539 136417 1 4.0 catheter (WX1KK23) INTEGRITY RX Medtronic 1 [id number] 815445 641026 223198 5 [id number] 3.5 x 15 stent ([id number]) EXOSEAL 6Fr Cardinal 1 EX600 364168 931947 572554 10 (EX600) Health Signature Audit [place]osca Stage Time Signature Unsigned Intra-Procedure 10/24/2019 Maciej Gurrola 11:13:30 AM RT(R) Intra-Procedure 10/24/2019 Allison Yi 11:15:14 AM RN Intra-Procedure 10/24/2019 Leandro Rashid 11:15:34 AM Ajay [place] [id number] [place] [address]
[2019-10-23 13:09] VITALS: BP 157/79
[2019-10-23 13:10] LABS: CALC OSMOLALITY 275 mosm/kg (275-300); CALCIUM 9.4 mg/dL (8.5-10.1); CARBON DIOXIDE 30.5 mmol/L (21.0-32.0); CHLORIDE - SERUM 102 mmol/L (98-107); CREATININE - SERUM 1.2 mg/dL (0.6-1.3); GLUCOSE 105 mg/dL (74-106); POTASSIUM - SERUM 3.8 mmol/L (3.5-5.1); SODIUM 139 mmol/L (136-145); UREA NITROGEN 8 mg/dL (7-18); eGFR NON AFRICAN AMERICAN 64 mL/min (90-120)
[2019-10-23 13:20] LABS: BASOPHILS 0.8 % (0-2); EOSINOPHILS 5.6 % (0-7); HEMATOCRIT 46.8 % (42.0-54.0); HEMOGLOBIN 16.2 g/dL (13.5-17.5); IMMATURE GRANULOCYTES 0.5 % (0-5); LYMPHOCYTES 25.6 % (15-50); MCH 31.5 pg (26.0-34.0); MCHC 34.6 g/dL (31.0-37.0); MCV 90.9 fL (80.0-100.0); MEAN PLATELET VOLUME 9.1 fL (7.4-10.4); MONOCYTES 7.5 % (2-11); PLATELET COUNT 246 10x3/uL (130-400); RBC 5.15 10x6/uL (4.20-6.10); RDW 13.6 % (11.5-14.5); WBC 7.7 10x3/uL (4.8-10.8)
[2019-10-23 13:23] LABS: APTT 41.2 SECONDS (22.8-39.4); INR 1.24 (0.85-1.17); PROTIME 15.1 SECONDS (11.6-15.0)
[2019-10-23 13:25] LABS: ALBUMIN 3.6 g/dL (3.4-5.0); ALKALINE PHOSPHATASE 73 U/L (46-116); ALT (SGPT) 23 U/L (10-68); BILIRUBIN - TOTAL 1.11 mg/dL (0.2-1.3); CKMB 0.4 U/L (0.0-3.6); CREATINE KINASE 23 UL (21-232); MAGNESIUM - SERUM 1.7 mg/dL (1.8-2.4); TROPONIN-I < 0.017 ng/mL (0.000-0.060)
--- NOTE | 2019-10-23 13:53 | NUR ---
PATIENT STATES HE HAS NO C/P AT THIS TIME AND HAS HAD PROBLEMS WITH NTG, WOULD RATHER NOT HAVE PATCH AT THIS TIME. DR. JALLOH NOTIFIED.
--- NOTE | 2019-10-23 14:44 | NUR ---
RECIVED FROM ER PER WC TO ROOM 2123. ADMIT ASSESSMENT PER RN
[2019-10-23 14:48] VITALS: BP 138/87
[2019-10-23 15:35] VITALS: BP 138/87; BMI 24.4
[2019-10-23 16:46] VITALS: Ht 180.3 cm; Wt 86.6 kg
--- NOTE | 2019-10-23 17:13 | MORECARE ---
CASE MANAGEMENT DISCHARGE SUMMARY PATIENT: VOLODYMYR BORJA UNIT: [id number] ADM DATE: 10/23/19 AGE: 69 : 49 SEX: M ROOM/BED: D.2123 AUTHOR: BONIFACIO,DOC PHYSICIAN: REFERRING PHYSICIAN: SHANKAR SANDOVAL MD DATE OF SERVICE: 10/23/19 Discharge Plan Patient Name: VOLODYMYR BORJA Facility: [facility]:[place] : 1950 Planned Disposition: Home Anticipated Discharge Date: 10/23/19 Discharge Date: Expected LOS: 1 Initial Reviewer: [email or web address] Initial Review Date: 10/23/2019 Generated: 10/23/19 6:12 pm Comments DCP- Discharge Planning Updated by [email or web address]: Volodymyr Ventura on 10/23/19 4:[address] Patient Name: VOLODYMYR BOJRA Admission Status: ER Accout number: [id number] Admission Date: 10-23-2019 : 1950 Admission Diagnosis: Attending: SHANKAR SANDOVAL Current LOS: 1 Anticipated DC Date: 10-23-2019 Planned Disposition: Home Primary Insurance: MEDICARE A & B Discharge Planning Comments: CM MET WITH PT IN ROOM TO DISCUSS DISCHARGE PLANNING AND NEEDS. PT REPORTS LIVING AT HOME INDEPENDENTLY WITH HER SPOUSE. PT HAS NO MEDICAL EQUIPMENT AND NO OUTSIDE SERVICES ASSISTING IN THE HOME. CM DISCUSSED AVAILABILITY OF HOME HEALTH, REHAB SERVICES AND MEDICAL EQUIPMENT. PT DENIES DISCHARGE NEEDS, REPORTS HER SON WILL PICK HER UP FOR DISCHARGE HOME. UNDERWEAR TRIMMER NURSE NOTIFIED. Senior Clinical Research Scientist: Volodymyr Ventura DCPIA - Discharge Planning Initial Assessment Updated by [email or web address]: Volodymyr Ventura on 10/23/19 5:09 pm * Is the patient Alert and Oriented? Yes * How many steps to enter\exit or inside your home? NONE * PCP DR. HORTA * [facility] * Preadmission Environment Home with Family * ADLs Independent * Equipment None * Other Equipment [facility] - MEDICAL EQUIPMENT PROVIDER * List name and contact numbers for known caregivers / representatives who currently or will assist patient after discharge: JULIA MCLEAN, SPOUSE, * Verbal permission to speak to the caregivers and representatives has been obtained from the patient. Yes * Community resources currently utilized None * Please name any agencies selected above. NONE * Additional services required to return to the preadmission environment? No * Can the patient safely return to the preadmission environment? Yes * Has this patient been hospitalized within the prior 30 days at any hospital? No Coverage Notice Reviewer: [email or web address] - Vira Grande Notice Issued Date-Time: 10/23/2019 14:02 Notice Type: Medicare Outpatient Observation Notice Notice Delivered To: Patient Relationship to Patient: Guidance Secretary Name: Delivery Method: HAND - Hand Delivered Brittnee Days: Prior Verbal Notification: Recipient Understood Notice: Recipient Signature: Med Rec Note Co-signed by Attending: Coverage Notice Comment: ANDERSON delivered, explained, signed by the patient, and placed in the chart. Signed form also left with patient. Vira Grande RN , [facility] Patient Name: VOLODYMYR BORJA Page [id number] at 1713 All edits/amendments must be made on the electronic document DICTATION DATE: 10/23/191711 SENIOR QA AUTOMATION ENGINEER: DEMETRIA 10/23/191711 RPT#: [id number] DC DATE: STATUS: ADM IN [facility] [address] [place] [address] END OF REPORT
--- NOTE | 2019-10-23 19:21 | NUR ---
RECEIVED BEDSDIER REPORT. PATIENT IS ALERT AND ORIENTED, RESTING COMFORTABLY IN BED. RESPIRATIONS ARE EVEN AND UNLABORED. NO S/S OF DISTRESS. NO C/OPAIN. NEEDS MET. CALL LIGHT WITHIN REACH. WILL CPOC.
[2019-10-23 20:00] VITALS: BP 118/69
[2019-10-23 20:20] LABS: CREATINE KINASE 26 UL (21-232); TROPONIN-I < 0.017 ng/mL (0.000-0.060)
[2019-10-24] VITALS: BP 105/69
[2019-10-24 02:08] LABS: CKMB 0.2 U/L (0.0-3.6); CREATINE KINASE 20 UL (21-232); TROPONIN-I < 0.017 ng/mL (0.000-0.060)
[2019-10-24 04:00] VITALS: BP 126/81
[2019-10-24 07:31] LABS: CREATINE KINASE 20 UL (21-232)
[2019-10-24 07:32] LABS: TROPONIN-I < 0.017 ng/mL (0.000-0.060)
--- NOTE | 2019-10-24 08:06 | NUR ---
ALERT AND ORIENTED. TELEMERTY SHOWS SR 68. LEFT FA SL.C/O BACK PAIN UP AB MANDA. SR UP WITH CALL LIGHT IN REACH. WILL MONITOR
[2019-10-24 08:40] VITALS: BP 115/71
[2019-10-24 09:53] LABS: CARBON DIOXIDE 28.5 mmol/L (21.0-32.0); CHOL - HDL RATIO 5.4 ratio (2.3-4.9); CREATININE - SERUM 1.1 mg/dL (0.6-1.3); LDL-HDL RATIO 3.7 ratio (1.5-3.5)
[2019-10-24 09:59] LABS: POTASSIUM - SERUM 4.5 mmol/L (3.5-5.1)
[2019-10-24 10:20] LABS: BASOPHILS 0.6 % (0-2); EOSINOPHILS 4.3 % (0-7); HEMATOCRIT 46.7 % (42.0-54.0); HEMOGLOBIN 16.2 g/dL (13.5-17.5); IMMATURE GRANULOCYTES 0.4 % (0-5); LYMPHOCYTES 27.8 % (15-50); MCH 31.6 pg (26.0-34.0); MCHC 34.7 g/dL (31.0-37.0); MCV 91.2 fL (80.0-100.0); MEAN PLATELET VOLUME 9.3 fL (7.4-10.4); MONOCYTES 5.8 % (2-11); NEUTROPHILS 61.1 % (40-80); PLATELET COUNT 244 10x3/uL (130-400); RBC 5.12 10x6/uL (4.20-6.10); RDW 13.9 % (11.5-14.5)
--- NOTE | 2019-10-24 10:35 | NUR ---
TO POLL CLERK PER BED
--- NOTE | 2019-10-24 11:34 | NUR ---
BACK FROM ACCESSIBILITY LIFT TECHNICIAN. RIGHT GROIN SOFT WITH DRSG DRY AND INTACT. PPP/S STABLE. TELEMERTY SHOWS SR 64
--- NOTE | 2019-10-24 14:52 | NUR ---
V/S STABLE. RIGHT GROIN SOFT WITH DRSG DRY AND INTACT. PPP. TELEMERTY SHOWS SR. WILL MONITOR
--- NOTE | 2019-10-24 15:18 | NUR ---
I have reviewed this patient and I concur with the Shift Assessment completed by the Licensed Practical Nurse today this shift.
[2019-10-24] MEDS ORDERED: BAYER CHEWABLE81 MG PO (16:03)
--- NOTE | 2019-10-24 16:03 | NUR ---
OFFERED PT FLU SHOT. HE DECLINED.
[2019-10-24 16:11] VITALS: BP 97/48
--- NOTE | 2019-10-24 17:06 | NUR ---
PT DCD. IV REMOVED WITH TIP INTACT. RIGHT GROIN SOFT WITH DRSG DRY AND INTACT. INSTRUCTIONS GIVEN TO PT AND FAMILY. TO PRIVATE CAR PER WHEELCHAIR
--- NOTE | 2019-10-25 12:05 | OP ---
PATIENT NAME: LUIGI BORJA MEDICAL RECORD: [id number] :48 LOCATION:D. D.2123 ADMISSION DATE:10/23/19 SURGEON: MELISSA CHISHOLM MD DATE OF OPERATION: 10/24/2019 PROCEDURE: Left heart catheterization, selective coronary angiography, right femoral artery approach. CATHETERS: A 5-English sheath, 5/4 left and right Blanche, 5/4 pig. The procedure was well tolerated and the patient was returned to corbin. Sheath removed. ExoSeal device placed. FINDINGS: Left ventriculography in 30-degree ZIMMERMAN view: Normal wall motion, normal systolic function. CORONARY ANATOMY: LEFT MAIN: Left main is free of disease. LAD: LAD is totally occluded proximally. There is a large ramus versus high OM branch that is widely patent stent. CIRCUMFLEX: Totally occluded. RIGHT CORONARY ARTERY: Totally occluded. Fills well via left to right collaterals from the EDWARDS. BYPASS GRAFTS: EDWARDS to LAD is widely patent throughout its course. No evidence of post-anastomotic stenosis and fills the right via collaterals. There is a saphenous vein graft to the circumflex. This fills a diminutive circumflex, but does appear culprit at this point given anatomy. PLAN: Intervention momentarily. DESCRIPTION: Using an indwelling 6-English sheath, a JR4 guiding catheter site good guide catheter support followed by 300 cm Whisper wire was placed across the 80% stenosed saphenous graft at distal portion of this vessel. The patient was pretreated with both intracoronary Integrilin and intracoronary Cardene and a direct stenting was performed with 3.5 x 15 mm integrity at 14 atmospheres. Final angiography shows excellent resolution of 80% stenosis, no significant residual. There was probable some distal inflation to the diminutive circ; however, with Integrilin hopefully, this will resolve. Again, the patient was pretreated with Cardene and Integrilin. Sheath closed with ExoSeal device. The patient previously on Plavix will be started. TRANSINT:[id number] Voice Confirmation ID: [id number] DOCUMENT ID: [id number] MELISSA CHISHOLM MD at 1205 CC: [id number] DICTATION DATE: 10/24/19 1115 CYCLE MANAGER: 10/24/19 1443 DIS IN 10/24/19 [facility] [address] [place] [address]
--- NOTE | 2019-10-25 12:05 | CN ---
PATIENT NAME:LUIGI BORJA MEDICAL RECORD: [id number] : 48 LOCATION:[facility].2123 ADMIT DATE: 10/23/19 ACCOUNT: [id number] CONSULTING PHYSICIAN: MELISSA CHISHOLM MD REFERRING PHYSICIAN: SHANKAR SANDOVAL MD DATE OF CONSULTATION: 10/24/2019 HISTORY OF PRESENT ILLNESS: A 69-year-old gentleman with known history of coronary artery disease status post bypass grafting subsequently intervention via Dr. Law. History of atrial fibrillation status post failed ablation, on DOAC for CVA prophylaxis, began having rapidly progressive acute coronary syndrome, unstable angina over the last week. 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 We are asked to see him concerning his cardiovascular status. PAST MEDICAL HISTORY: Includes: 1. History of coronary artery disease. 2. Hypertension. 3. Atrial fibrillation. 4. Dyslipidemia, statin intolerant. ALLERGIES: STATINS, PENICILLIN, HYDROCODONE, FELDENE. SOCIAL HISTORY: Nonsmoker, nondrinker. Easily takes care of all his ADLs. No illicit drug use. REVIEW OF SYSTEMS: The patient reports easy bruising but reports no swollen glands. The patient reports no fever, no night sweats, no significant weight gain, no significant weight loss. No significant exercise tolerance. The patient reports no dry eyes, no irritation, no vision change. Patient reports no difficulty hearing and no ear pain. Patient reports no frequent nose bleeds or nose and sinus problems. Patient reports on arm pain on exertion. No shortness of breath while lying down. No history of heart murmur. Patient reports no cough, no wheezing or coughing up blood. Patient reports no abdominal pain, no vomiting. Normal appetite. No diarrhea and not vomiting blood. No nausea and no constipation. Patient reports no incontinence. No difficulty urinating. No hematuria. No increased frequency. Patient reports no muscle aches. No weakness, no arthralgias, no back pain. No swelling of the extremities. Patient reports no abnormal mole, no jaundice, no rashes. Reports no loss of consciousness. No weakness and no numbness. No seizures, dizziness, or headaches. The patient reports no depression, no sleep disturbance, feeling safe in a relationship and no alcohol abuse. Patient reports on fatigue. Reports no runny nose or sinus pressure. No itching, no hives, and no frequent sneezing. PHYSICAL EXAMINATION: GENERAL: Pleasant gentleman, in no acute distress, appears stated age. VITAL SIGNS: Blood pressure 115/71, pulse 70 and regular. HEENT: Normocephalic, atraumatic. NECK: No JVD or bruit. HEART: Regular, II/ systolic ejection murmur. LUNGS: Good air excursion. ABDOMEN: Soft, nontender. EXTREMITIES: Pulse 2+. There is no edema. CONSULT REPORT [id number] LUIGI BORJA DIAGNOSTIC DATA: ECG without acute change. IMPRESSION: Acute coronary syndrome. PLAN: For angiography, intervention based on above. TRANSINT:[id number] Voice Confirmation ID: [id number] DOCUMENT ID: [id number] MELISSA CHISHOLM MD at 1205 CC: [id number] DICTATION DATE: 10/24/19 1035 POSTDOCTORAL RESEARCH ASSOCIATE: 10/24/19 1353 DIS IN 10/24/19 [id number] [place] [address]
== END 2019-10-24 17:08 | disposition home or self-care (01) ==
LOC: D.ER 12:36 → D.M2 13:38 → OBSVTIME 13:55 → D.M2 14:02
PROVIDERS: Emergency Medicine; Internal Medicine Interventional Cardiology; ADMIT Family Medicine; ATTEND Family Medicine
DX: I24.9 Acute ischemic heart disease, unspecified (principal); I48.91 Unspecified atrial fibrillation; E78.5 Hyperlipidemia, unspecified; I10 Essential (primary) hypertension

== ENCOUNTER → 2020-05-07 08:18 | Outpatient (CLI) | payer MEDICARE, OTHER ==
[2019-10-23 16:46] VITALS: BMI 24.4
== END | disposition home or self-care (01) ==
LOC: D.HCCARDIO 08:18
PROVIDERS: ATTEND Internal Medicine Cardiovascular Disease
DX: I25.10 Atherosclerotic heart disease of native coronary artery without angina pectoris (principal)

== ENCOUNTER 2020-05-15 11:44 | Outpatient (CLI) | payer MEDICARE, OTHER ==
[~2020-05-15] VITALS: Ht 180.3 cm; Wt 83.5 kg
--- NOTE | ~2020-05-15 | HEMODYNAMI ---
PATIENT:LUIGI BORJA MEDICAL RECORD: [id number] : 48 LOCATION:D.CAT ADMISSION DATE: 05/15/20 Generatedon:05/15/202013:58 Patient name: LUIGI BORJA Patient #: [id number] : 1950 Date of study: 05/15/2020 Page: Of Hemodynamic Procedure Report Patient Data Patient Demographics Procedure consent was obtained First Name: LUIGI Gender: Male Last Name: JONH : 1950 Middle Initial: M Age: 70 year(s) Patient #: [id number] Race: SSN: [id number] Additional ID: [id number] Contact details [address]: [address] [place] [address] State: [place] City: [place] Zip code: [address] Past Medical History Allergies Allergen Reaction Date Comments Reported Penicillins 02/17/2015 Other allergy 02/17/2015 Feldene Lipitor 02/17/2015 Other allergy 02/17/2015 Meropenem Other allergy 02/04/2017 PCN, Feldene, Statins,Meropenen Other allergy 01/31/2018 Feldene, PCN, Lipitor, Hydrocodone, Vicodin, Meropenen, Effient, Crestor. Other allergy 10/13/2018 CRESTOR, FELDENE, LIPITOR, MEROPENEM, PCN Other allergy 01/19/2019 CRESTOR, FELDENE, LIPITOR, MEROPENEM, PCN Other allergy 05/25/2019 CRESTOR, FELDENE, LIPITOR, MEROPENEM, PCN Other allergy 05/15/2020 CRESTOR, FELDENE, LIPITOR, MEROPENEM, PCN, PRALUENT PEN Admission Admission Data Admission Date: 05/15/2020 Admission Time: 11:44 Arrival Date: 05/15/2020 Arrival Time: 0:00 Height (in.): 70.87 BSA: 2.03 (m2) Height (cm.): 180 BMI: 25.62 (kg/m2) Weight (lbs.): 183 Weight (kg.): 83.01 Lab Results Lab Result Date: 05/15/2020 Lab Result Time: 0:00 CBC Name Units Result Min Max Hematocrit % 53.5 --(---*)-- 42 54 Hemoglobin g/dl 18.4 --(----)*- 13.5 17.5 Procedure Procedure Types Cath Procedure Diagnostic Procedure LHC LHC w/Coronaries w/Grafts Sedation Charges Moderate Sedation up to 15 minutes Procedure Description Procedure Date Procedure Date: 05/15/2020 Procedure Start Time: 13:43 Procedure End Time: 13:55 Procedure Staff Name Function Leandro Montemayor MD Performing Physician Dave Munoz RN Nurse Flaquita Price RT Scrub Riya Merchant RT Monitor Karine Simons RT Monitor Procedure Data Cath Procedure Fluoroscopy Diagnostic fluoroscopy Total fluoroscopy Time: 1.9 time: 1.9 min min Diagnostic fluoroscopy Total fluoroscopy dose: 346 dose: 346 mGy mGy Contrast Material Contrast Material Type Amount (ml) Isovue 300 48 Entry Location Entry Primary Successful Side Size Upsize Upsize Entry Closure Succes sful Closure Location (Fr) 1 (Fr) 2 (Fr) Remarks Device Remarks Femoral Right 5 Fr Exoseal artery Estimated blood loss: 10 ml Diagnostic catheters Device Type Used For End Catheter Placement MULTIPACK JL 4.0 5Fr Procedure catheter MULTIPACK 3DRC 5Fr Procedure catheter MULTIPACK Pigtail 5 Fr Ventriculography catheter Procedure Complications No complications Procedure Medications Medication Administration Route Dosage Oxygen etCO2 Nasal cannula 2 l/min Lidocaine 2% added to field 20 Heparin Flush Bag added to field 2 bags (1000units/500ml NS) 0.9% NaCl I.V. 100 ml/hr Versed I.V. 1 mg Fentanyl I.V. 50 mcg Versed I.V. 1 mg Fentanyl I.V. 50 mcg Versed I.V. 1 mg Fentanyl I.V. 50 mcg Hemodynamics Rest BSA: 2.03 (m2) HGB: 18.4 (g/dl) O2 Consumption: Estimated: 232.27 (ml/min) O2 Co nsumption indexed: Estimated:114.42 (ml/min/m) Heart Rate: 67 (bpm) Pressure Samples Time Site Value (mmHg) Purpose Heart Use Rate(bpm) 13:50 LV 128/14,17 Snapshot 66 Gradients Valve Time Site Site Mean SEP/DFP Peak To Heart Use 1 2 (mmHg) (sec/min) Peak Rate (mmHg) (bpm) Aortic 13:50 LV AO 70 Snapshots Pre Cath Intra NCS Post Cath Vital Signs Time Heart Resp SPO2 etCO2 NIBP (mmHg) Rhythm Pain Sedation Rate (ipm) (%) (mmHg) Status Level (bpm) 13:24:43 70 14 96 35.3 177/105(124) NSR 0 (11) 10(A) , No pain 13:29:03 67 19 96 28.5 171/101(143) NSR 0 (11) 10(A) , No pain 13:33:23 65 13 99 19 162/93(109) NSR 0 (11) 10(A) , No pain 13:37:45 65 12 98 12 150/90(111) NSR 0 (11) 10(A) , No pain 13:42:14 72 12 98 30.7 143/69(121) NSR 0 (11) 10(A) , No pain 13:46:28 65 13 98 0 145/87(100) NSR 0 (11) 9(A) , No pain 13:50:46 67 14 96 43.5 144/78(123) NSR 0 (11) 9(A) , No pain 13:55:04 64 11 98 43.5 145/80(116) NSR 0 (11) 10(A) , No pain Medications Time Medication Route Dose Verified Delivered Reason Notes Eff ectiveness by by 13:27:41 Oxygen etCO2 2 Leandro Acosta used for Nasal l/min St Ajay Munoz biodiesel engine specialist cannula 13:27:48 Lidocaine 2% added 20ml Leandro Reeves for local to vial [facility] anesthetic field MD CHOI 13:27:54 Heparin Flush added 2 Leandro Leandro used for Bag to bags [facility] procedure (1000units/500ml field MD CHOI NS) 13:28:03 0.9% NaCl I.V. 100 Leandro Acosta Per ml/hr St Ajay Munoz RN physician 13:42:14 Versed I.V. 1 mg Leandro Del Ros[address] for St Ajay Munoz RN sedation 13:42:19 Fentanyl I.V. 50 Le[address] Car[address] for mcg St Ajay Munoz RN sedation 13:44:50 Versed I.V. 1 mg Leandro Del Rosarioie for St Ajay Munoz RN sedation 13:44:55 Fentanyl I.V. 50 Leandro Acosta for [facility] St Ajay Munoz RN sedation 13:49:25 Versed I.V. 1 mg [address] for [address] Ajay Munoz RN sedation 13:49:29 Fentanyl I.V. 50 Leandro Acosta for suze cortes MD Procedure Log Time Note 12:59:06 Informed consent obtained and on chart 12:59:35 Procedure Status Elective Heart Cath (OP). 12:59:35 Time tracking: Regular hours (M-F 7:00 - 5:00) 12:59:38 Plan of Care:Hemodynamics will remain stable., Cardiac rhythm will remain stable., Comfort level will be maintained., Respiratory function will remain adequate., Patient/ family verbilizes understanding of procedure., Procedure tolerated without complication., Recovers from procedure without complications.. 13:03:00 H&P Date Dictated: 05/05/2020 Within 30 days and on chart., H&P Addendum completed by physician on day of procedure. (MUST COMPLETE FOR ALL OUTPATIENTS). 13:04:19 Patient allergic to Other allergyCRESTOR, FELDENE, LIPITOR, MEROPENEM, PCN, PRALUENT PEN 13:05:02 Patient Weight : 183 lbs 13:05:47 Patient Height : 70.87 inches 13:05:54 Arrival Date: 05/15/2020 12:00:00 AM 13:10:16 Riya Merchant RT(R) sent for patient. Start room use. 13:14:50 Patient received from Pre/Post Procedure Room to CCL 1 Alert and oriented. Tansferred to table in Supine position. 13:14:53 Warm blankets applied, and kailee hugger turned on for patient comfort. 13:14:54 Correct patient and procedure confirmed by team. 13:14:55 ECG and BP/O2 sat monitors applied to patient. 13:23:31 Vital chart was started 13:23:37 Rhythm: sinus rhythm 13:23:37 Full Disclosure recording started 13:23:38 Pre-procedure instructions explained to patient. 13:23:38 Pre-op teaching completed and patient verbalized understanding. 13:24:13 Is patient on blood thinner?Yes 13:24:15 PATIENTS LAST DOSE OF ELIQUIS TUESDAY. 13:24:15 ACC The patient was administered the following blood thiners within the last 24 hours: ACCPlavix 13:24:16 Patient diabetic? No. 13:24:19 Previous problem with sedation/anesthesia? No ? 13:24:19 Snore? Yes 13:24:20 Sleep apnea? Yes 13:24:21 Deviated septum? No 13:24:22 Opens mouth fully? Yes 13:24:23 Sticks out tongue? Yes 13:24:25 Airway obstruction? No ? 13:24:27 Dentures? No ? 13:24:52 Pre procedure: right dorsailis pedis pulse 1+ Palpable, but thready & weak; easily obliterated 13:24:54 Patient pain scale 0/10 ?. 13:26:56 IV patent on arrival in left hand with 0.9% NaCl at [facility]. 13:27:33 Lab Result : Hemoglobin 18.4 g/dl 13:27:33 Lab Result : Hematocrit 53.5 % 13:27:39 Lab results completed and on chart. 13:27:41 Oxygen 2 l/min etCO2 Nasal cannula was administered by Dave Munoz RN; used for procedure; Verbal order read back and verified. 13:27:42 Right groin area was prepped with chlora-prep and draped in sterile fashion 13:27:44 Alarms reviewed by R. N. 13:27:44 Sharps counted by scrub and verified by R.N. 13:27:47 Use device set Femoral Dx 13:27:48 Lidocaine 2% 20ml vial added to field was administered by Leandro Montemayor MD; for local anesthetic; Verbal order read back and verified. 13:27:48 ACIST Syringe (27814) opened to sterile field. 13:27:50 Bag Decanter () opened to sterile field. 13:27:51 ACIST Hand Control (80074) opened to sterile field. 13:27:51 ACIST Manifold (36081) opened to sterile field. 13:27:53 Tegaderm 4 x 4 (1626W) opened to sterile field. 13:27:54 Heparin Flush Bag (1000units/500ml NS) 2 bags added to field was administered by Leandro Montemayor MD; used for procedure; Verbal order read back and verified. 13:27:54 Medline Cath Pack ([id number]) opened to sterile field. 13:27:55 DIAGNOSTIC Multipack 5Fr catheter set ([id number]) opened to sterile field. 13:27:57 SHEATH 5FR [place] (WXP274) opened to sterile field. 13:27:57 EMERALD Guide Wire (718-224) opened to sterile field. 13:28:03 0.9% NaCl 100 ml/hr I.V. was administered by Dave Munoz RN; Per physician; Verbal order read back and verified. 13:32:27 Baseline sample Acquired. 13:36:07 Zero performed for pressure channel P1 13:41:45 --------ALL STOP TIME OUT------ 13:41:45 Final Timeout: patient, procedure, and site verified with staff and physician. All members of the team are in agreement. 13:41:47 Right groin site verified by team. 13:41:49 Fire Safety Assessment: A--An alcohol-based skin anteseptic being used preoperatively., C--Open oxygen or nitrous oxide is being used., D--An ESU, laser, or fiber-optic light is being used. 13:41:54 Physical assessment completed. ASA score P 3 - A patient with severe systemic disease as per Leandro Montemayor MD. 13:42:05 Sedation plan: IV Moderate Sedation Medication:Versed, Fentanyl 13:42:14 Versed 1 mg I.V. was administered by Dave Munoz RN; for sedation; Verbal order read back and verified. 13:42:19 Fentanyl 50 mcg I.V. was administered by Dave Munoz RN; for sedation; Verbal order read back and verified. 13:42:32 LABS FOR GFR HAVE NOT BEEN RECEIVED. OKAY PER DR. MONTEMAYOR 13:43:03 Procedure started. 13:43:46 Local anesthetic to right femoral artery with Lidocaine 2% by Leandro Montemayor MD.INITIAL ACCESS ONLY 13:44:50 Versed 1 mg I.V. was administered by Dave Munoz RN; for sedation; Verbal order read back and verified. 13:44:50 A 5 Fr sheath was inserted into the Right Femoral artery 13:44:55 Fentanyl 50 mcg I.V. was administered by Dave Munoz RN; for sedation; Verbal order read back and verified. 13:45:02 A MULTIPACK JL 4.0 5Fr catheter was advanced over the wire and used for Procedure. 13:45:50 LCA angiography performed. 13:46:05 A MULTIPACK 3DRC 5Fr catheter was advanced over the wire and used for Procedure. 13:47:27 RCA angiography performed. 13:47:40 SVG to Diag occluded. 13:47:59 SVG to Circ occluded. 13:48:22 EDWARDS to LAD angiography performed. 13:49:10 Catheter removed. 13:49:17 A MULTIPACK Pigtail 5 Fr catheter was advanced over the wire and used for Ventriculography. 13:49:21 Zero performed for pressure channel P1 13:49:25 Versed 1 mg I.V. was administered by Dave Munoz RN; for sedation; Verbal order read back and verified. 13:49:29 Fentanyl 50 mcg I.V. was administered by Dave Munoz RN; for sedation; Verbal order read back and verified. 13:49:39 LV gram done using ZIMMERMAN 13:50:47 EF : 55 % 13:50:48 EXOSEAL 5Fr (EX500) opened to sterile field. 13:50:52 Catheter removed. 13:51:02 Sheath removed intact; hemostasis achieved with Exoseal to the Right Femoral artery. 13:51:09 Procedure ended.(Physican Out) 13:51:25 Fluoroscopy time 01.90 minutes. 13:51:54 Fluoroscopy dose: 346 mGy 13:51:54 Flurop Dose total: 346 13:52:00 Dose Area Product 32068 mGy/cm. 13:52:03 Contrast amount:Isovue 300 48ml. 13:52:06 Maximum allowable dose exceeded? No. 13:52:07 Sharps counted by scrub and verified by R.N. 13:52:09 Insertion/operative site no bleeding no hematoma. 13:52:13 Post right femoral artery:stable 13:52:18 Post-procedure physical assessment completed. ASA score P 3 - A patient with severe systemic disease as per Leandro Montemayor MD. 13:52:21 Post procedure rhythm: unchanged. 13:52:26 Estimated blood loss: 10 ml 13:52:28 Post procedure instruction explained to patient.Patient verbalizes understanding. 13:52:46 Procedure type changed to Cath procedure, Diagnostic procedure, LHC, LHC w/Coronaries w/Grafts, Sedation Charges, Moderate Sedation up to 15 minutes 13:52:48 Procedure and supply charges have been captured, reviewed, submitted and are correct. 13:53:37 Procedure and supply charges have been captured, reviewed, submitted and are correct. 13:54:40 Procedure and supply charges have been captured, reviewed, submitted and are correct. 13:54:48 Procedure Complication : No complications 13:54:51 Vital chart was stopped 13:54:56 [facility] Findings: MVD- manage w/ optimal medication therapy 13:54:59 Operative report dictated upon procedure completion. 13:55:02 See physician's report for complete and final results. 13:55:04 Report given to Pre/Post Procedure Room. 13:55:08 Patient transfered to Pre/Post Procedure Room with Stretcher. 13:55:10 Procedure ended. 13:55:10 Full Disclosure recording stopped 13:55:19 End room use (Document Last) Device Usage Item Name Manufacture Quantity Catalog Hospital Part Current Minimal L ot# / Number Charge Number Stock Stock Serial# Code ACIST Acist 1 [id number] 169701 404418 [id number] 20 Syringe Medical (42855) Systems Inc Bag Microtek 1 2001S 554415 26833 184097 5 Decanter Medical Inc. () ACIST Hand Acist 1 75845 906001 541727 130615 5 Control Medical (31408) Systems Inc ACIST Acist 1 63889 891716 412775 935007 5 Manifold Medical (49338) Systems Inc Tegaderm 4 3M 1 1626W 197732 190917 597179 5 x 4 (1626W) Medline Medline 1 [id number] 720508 70334 459509 5 Cath Pack ([id number]) DIAGNOSTIC Cardinal 1 BK5358 190932 03237 965010 30 Multipack Health 5Fr catheter set (UU1426) SHEATH 5FR Terumo 1 WUJ476 997969 862621 977383 5 [place] (XKS575) EMERALD Cardinal 1 502-455 893549 538402 162225 5 Guide Wire Health (502-653) MULTIPACK Cardinal 1 962436 5 JL 4.0 5Fr Health catheter MULTIPACK Cardinal 1 705913 5 3DRC 5Fr Health catheter MULTIPACK Cardinal 1 251198 5 Pigtail 5 Health Fr catheter EXOSEAL 5Fr Cardinal 1 EX500 536889 448538 906588 10 (EX500) Health Signature Audit [place] Stage Time Signature Unsigned Intra-Procedure 05/15/2020 Karine Simons 1:53:37 PM RT(R) Intra-Procedure 05/15/2020 Dave Munoz RN 1:54:40 PM Intra-Procedure 05/15/2020 Leandro Rashid 1:58:07 PM Ajay CHOI [facility] [address] [place] [address]
[2020-05-15 12:26] VITALS: BP 159/88; Ht 180.3 cm; Wt 83.5 kg
[2020-05-15 12:41] LABS: BASOPHILS 0.6 % (0-2); EOSINOPHILS 4.3 % (0-7); HEMATOCRIT 53.5 % (42.0-54.0); HEMOGLOBIN 18.4 g/dL (13.5-17.5); IMMATURE GRANULOCYTES 0.6 % (0-5); LYMPHOCYTES 26.7 % (15-50); MCH 30.8 pg (26.0-34.0); MCHC 34.4 g/dL (31.0-37.0); MCV 89.5 fL (80.0-100.0); MEAN PLATELET VOLUME 8.9 fL (7.4-10.4); MONOCYTES 7.3 % (2-11); NEUTROPHILS 60.5 % (40-80); PLATELET COUNT 219 10x3/uL (130-400); RBC 5.98 10x6/uL (4.20-6.10); WBC 6.9 10x3/uL (4.8-10.8)
[2020-05-15 13:47] LABS: ANION GAP 6.7 mmol/L (8-16); CALCIUM 9.3 mg/dL (8.5-10.1); CARBON DIOXIDE 32.3 mmol/L (21.0-32.0); CHOL - HDL RATIO 4.4 ratio (2.3-4.9); CREATININE - SERUM 1.2 mg/dL (0.6-1.3); LDL-HDL RATIO 2.9 ratio (1.5-3.5)
--- NOTE | 2020-05-15 14:05 | NUR ---
PT REC'D TO ROOM 10 FROM GLOVE PAIRER VIA STRETCHER. MONITORS ESTAB, AT BS. SEE MEDICAL TECHNICIAN ASSISTANT. ALARMS ON AND C/L IN REACH.
[2020-05-15] MEDS ORDERED: RANEXA500 MG PO (14:19)
--- NOTE | 2020-05-15 14:20 | NUR ---
R GROIN SITE SOFT, NO S/S BLEEDING OR HEMATOMA. PULSES PALP. VSS. C/L IN REACH.
--- NOTE | 2020-05-15 14:55 | NUR ---
R GROIN SITE SOFT, NO S/S BLEEDING OR HEMATOMA. PULSES PALP. PT RESTING QUIETLY, AT BS.
--- NOTE | 2020-05-15 15:10 | NUR ---
R GROIN SITE SOFT, NO S/S BLEEDING OR HEMATOMA. HOB ELEVATED, SANDWICH TRAY AND COLA PROVIDED. AT BS. VSS. C/L IN REACH.
--- NOTE | 2020-05-15 15:35 | NUR ---
R GROIN SITE SOFT, NO S/S BLEEDING OR HEMATOMA. PULSES PALP. PIV D/C'D INTACT AND DSG APPLIED. PT ALLOWED UP TO GET DRESSED AND GO TO BR INDEPENDENTLY.
--- NOTE | 2020-05-15 15:57 | NUR ---
ALL DISCHARGE TEACHING/INSTRUCTION REVIEWED WITH PT AND HIS . - NEW MEDICATION INFO PROVIDED.
--- NOTE | 2020-05-15 16:05 | NUR ---
PT D/C'D VIA WC TO PRIVATE VEHICLE WITH ALL PAPERWORK, BELONGINGS AND NEW SCRIPT.
--- NOTE | 2020-05-19 07:56 | OP ---
PATIENT NAME: LUIGI BORJA MEDICAL RECORD: [id number] :48 LOCATION:D.CAT ADMISSION DATE: SURGEON: MELISSA CHISHOLM MD DATE OF OPERATION: 05/15/2020 PROCEDURES: Left heart catheterization, selective coronary angiography, right femoral artery approach. CATHETERS: A 5-[place] Islander sheath, 5/4 left and right Blanche, 5/4 pig. The procedure was well tolerated. The patient returned to the corbin, sheath was removed. ExoSeal device was placed. FINDINGS: Left ventriculography in 30-degree ZIMMERMAN view: Normal wall motion and normal systolic function. CORONARY ANATOMY: LEFT MAIN: Left main is free of disease. LAD: LAD fills for a short period of time and seeing competitive flow via the EDWARDS. CIRCUMFLEX: Large OM/ramus with a widely patent stent. RIGHT CORONARY ARTERY: Totally occluded saphenous vein graft to the circs, totally occluded. EDWARDS to LAD is widely patent and fills the circ in right via collateral flow. IMPRESSION: Angina appears to be from collateral insufficiency. We will add Ranexa for angina control, with collaterals. Major epicardial areas appear to be well vascularized. TRANSINT:[id number] Voice Confirmation ID: [id number] DOCUMENT ID: [id number] MELISSA CHISHOLM MD at 0756 CC: [id number] DICTATION DATE: 05/15/20 1400 UPHOLSTERY ESTIMATOR: 05/15/20 1741 DEP CLI 05/15/20 [id number] [place] [address]
== END 2020-05-15 16:05 | disposition home or self-care (01) ==
LOC: D.CATH 11:44
PROVIDERS: ATTEND Internal Medicine Interventional Cardiology
DX: I25.119 Atherosclerotic heart disease of native coronary artery with unspecified angina pectoris (principal); R06.00 Dyspnea, unspecified; R07.9 Chest pain, unspecified; E78.5 Hyperlipidemia, unspecified; I10 Essential (primary) hypertension; Z86.73 Personal history of transient ischemic attack (TIA), and cerebral infarction without residual deficits; I48.91 Unspecified atrial fibrillation

== ENCOUNTER 2020-05-19 11:54 | Observation (INO) | payer MEDICARE, OTHER ==
[~2020-05-19] VITALS: Ht 180.3 cm; Wt 83.2 kg
[~2020-05-19 11:54] MED LIST changes: +RANEXA500 MG PO
[2020-05-19 12:10] VITALS: BP 128/63
--- NOTE | 2020-05-19 12:20 | NUR ---
PATIENT RECEIVED VIA EMS C/O SUDDEN ONSET C/P AT HOME THIS AM, STATES PAIN RELEIVED WITH SL NTG X 1. A/O X 3, PERRL, SKIN W/D, LUNG SOUNDS CLEAR AND EQUAL BI LAT, HEART SOUNDS S1-S2, C/M WITH SINUS ALEX, ABD SOFT NON TENDER OR DISTENDED, BOWEL SOUNDS POSITIVE X 4, SMCs INTACT X 4.
[2020-05-19 12:48] LABS: BASOPHILS 0.5 % (0-2); EOSINOPHILS 2.9 % (0-7); HEMATOCRIT 49.8 % (42.0-54.0); HEMOGLOBIN 16.9 g/dL (13.5-17.5); IMMATURE GRANULOCYTES 0.5 % (0-5); LYMPHOCYTES 17.4 % (15-50); MCH 30.3 pg (26.0-34.0); MCHC 33.9 g/dL (31.0-37.0); MCV 89.4 fL (80.0-100.0); MEAN PLATELET VOLUME 9.1 fL (7.4-10.4); MONOCYTES 5.9 % (2-11); NEUTROPHILS 72.8 % (40-80); PLATELET COUNT 190 10x3/uL (130-400); RBC 5.57 10x6/uL (4.20-6.10); WBC 7.6 10x3/uL (4.8-10.8)
[2020-05-19 12:54] LABS: CALC OSMOLALITY 270 mosm/kg (275-300); CALCIUM 9.3 mg/dL (8.5-10.1); CARBON DIOXIDE 28.2 mmol/L (21.0-32.0); CHLORIDE - SERUM 100 mmol/L (98-107); CREATININE - SERUM 1.3 mg/dL (0.6-1.3); GLUCOSE 130 mg/dL (74-106); POTASSIUM - SERUM 4.3 mmol/L (3.5-5.1); SODIUM 134 mmol/L (136-145); UREA NITROGEN 14 mg/dL (7-18); eGFR NON AFRICAN AMERICAN 58 mL/min (90-120)
[2020-05-19 13:08] LABS: INR 1.09 (0.85-1.17); PROTIME 14.1 SECONDS (11.6-15.0)
[2020-05-19 13:09] LABS: APTT 32.9 SECONDS (22.8-39.4)
[2020-05-19 13:10] LABS: ALBUMIN 3.4 g/dL (3.4-5.0); ALKALINE PHOSPHATASE 79 U/L (30-120); ALT (SGPT) 18 U/L (10-68); BILIRUBIN - TOTAL 0.81 mg/dL (0.2-1.3); CKMB 0.5 U/L (0.0-3.6); CREATINE KINASE 33 UL (21-232); MAGNESIUM - SERUM 1.8 mg/dL (1.8-2.4); TROPONIN-I < 0.017 ng/mL (0.000-0.060)
--- NOTE | 2020-05-19 13:19 | NUR ---
PT DENIES CHEST PAIN OR SHORTNESS OF BREATH AT THIS TIME.
[2020-05-19 13:20] VITALS: BP 116/65
[2020-05-19 14:53] VITALS: BP 133/69; BMI 25.1
[2020-05-19 16:39] VITALS: Ht 180.3 cm; Wt 83.2 kg
[2020-05-19 17:01] VITALS: BP 118/66
[2020-05-19 19:19] LABS: CKMB 0.4 U/L (0.0-3.6); CREATINE KINASE 36 UL (21-232)
[2020-05-19 19:26] LABS: TROPONIN-I < 0.017 ng/mL (0.000-0.060)
--- NOTE | 2020-05-19 20:00 | NUR ---
INITIAL ROUNDS AND ASSESSMENT COMPLETED. PT RESTING IN BED. IVF NS @ 125ML/HR INFUSING TO LEFT A/C. NONLABORED RESPIRATIONS ON ROOM AIR. PT TELLS NURSE HE HAS ALREADY TAKEN ALL OF HIS OWN HOME MEDS FOR THE DAY AND WAS TOLD THE MD WOULD ORDER HIM SOMETHING TO SLEEP FOR TONIGHT. CPOC. CALL LIGHT IN REACH.
[2020-05-19 20:21] VITALS: BP 151/79
--- NOTE | 2020-05-19 23:39 | NUR ---
BEDTIME LUNESTA GIVEN. IVF SALINE LOCKED DUE TO PT SAYING HE CANNOT SLEEP WITH IT BEEPING EVERYTIME HE BENDS HIS ARM. SR PER TELEMETRY. MONITOR AND CPOC.
[2020-05-20 00:33] VITALS: BP 107/57
[2020-05-20 01:05] LABS: CKMB 0.4 U/L (0.0-3.6); CREATINE KINASE 38 UL (21-232); TROPONIN-I < 0.017 ng/mL (0.000-0.060)
[2020-05-20 05:48] VITALS: BP 108/63
[2020-05-20 07:11] LABS: BASOPHILS 0.5 % (0-2); EOSINOPHILS 4.4 % (0-7); HEMOGLOBIN 16.2 g/dL (13.5-17.5); IMMATURE GRANULOCYTES 0.6 % (0-5); LYMPHOCYTES 27.3 % (15-50); MCH 30.2 pg (26.0-34.0); MCHC 33.8 g/dL (31.0-37.0); MCV 89.4 fL (80.0-100.0); MEAN PLATELET VOLUME 9.2 fL (7.4-10.4); MONOCYTES 6.5 % (2-11); NEUTROPHILS 60.7 % (40-80); PLATELET COUNT 195 10x3/uL (130-400); RBC 5.37 10x6/uL (4.20-6.10); RDW 13.1 % (11.5-14.5); WBC 6.6 10x3/uL (4.8-10.8)
[2020-05-20 07:48] LABS: ALBUMIN 3.2 g/dL (3.4-5.0); ALKALINE PHOSPHATASE 71 U/L (30-120); ALT (SGPT) 20 U/L (10-68); BILIRUBIN - TOTAL 0.84 mg/dL (0.2-1.3); CALC OSMOLALITY 271 mosm/kg (275-300); CALCIUM 8.7 mg/dL (8.5-10.1); CARBON DIOXIDE 26.1 mmol/L (21.0-32.0); CHLORIDE - SERUM 104 mmol/L (98-107); CKMB 0.3 U/L (0.0-3.6); CREATINE KINASE 30 UL (21-232); CREATININE - SERUM 1.3 mg/dL (0.6-1.3); POTASSIUM - SERUM 4.3 mmol/L (3.5-5.1); SODIUM 137 mmol/L (136-145); TROPONIN-I < 0.017 ng/mL (0.000-0.060); UREA NITROGEN 11 mg/dL (7-18); eGFR NON AFRICAN AMERICAN 58 mL/min (90-120)
[2020-05-20 07:50] LABS: GLUCOSE 77 mg/dL (74-106)
[2020-05-20 08:00] VITALS: BP 127/78
--- NOTE | 2020-05-20 09:11 | NUR ---
IV AND TELEMETRY DCD. DC PLANS GIVEN. UNDERSTANDING VOICED. ESCORTED TO CAR BY W/C.
== END 2020-05-20 09:12 | disposition home or self-care (01) ==
LOC: D.ER 11:54 → D.M2 13:19 → OBSVTIME 13:19 → D.M2 05-20 09:12
PROVIDERS: Family Medicine; ADMIT Family Medicine; ATTEND Family Medicine
DX: I25.119 Atherosclerotic heart disease of native coronary artery with unspecified angina pectoris (principal); R07.9 Chest pain, unspecified; Z95.1 Presence of aortocoronary bypass graft; I10 Essential (primary) hypertension; E78.5 Hyperlipidemia, unspecified; G89.29 Other chronic pain; I48.0 Paroxysmal atrial fibrillation